=== PATIENT | male | born 1955 | race Caucasian/White ===

== ENCOUNTER 2019-09-21 16:10 | Emergency (ER) | payer OTHER, SELFPAY ==
--- NOTE | ~2019-09-21 | US_ITS ---
EXAMINATION:US venous doppler LE RT INDICATION:Right leg pain and swelling TECHNIQUE: Multiple grayscale, color flow and Doppler images of the right lower extremity deep venous systems were obtained and reviewed. COMPARISON:No prior studies for comparison. FINDINGS: The common femoral, superficial femoral and popliteal veins demonstrate normal respiratory variation, augmentation and compressibility. Color flow is also seen within the posterior tibial, pe roneal, greater saphenous and profunda veins. Subcutaneous edema is noted in the area of swelling. IMPRESSION: 1: No lower extremity deep venous thrombosis. Reviewed, dictated and finalized at location A. TING DEMONSTRATOR
--- NOTE | ~2019-09-21 | XR_ITS ---
XR ankle RT min 3V 09/21/2019 17:31 Indication: History of gout. Redness and swelling of the ankle. Procedure: 4 views right ankle Comparison: No prior studies for comparison. Findings: No fracture, subluxation or dislocation. Ankle mortise intact. There is mild lateral soft t issue swelling. No erosive changes. There are small calcaneal enthesophytes. Impression: 1: No significant bone or joint abnormality. Reviewed, dictated and finalized at location A. [employer] Impression: 1: No significant bone or joint abnormality.
[2019-09-21 16:15] VITALS: BP 162/105; PULSE 78; RESP 20; TEMP 36.7; O2SAT 98
[2019-09-21 17:32] LABS: Basophils Percent Auto 0.2 % (0.2-1.2); Eosinophils Absolute Auto 0.1 K/mm3 (0-0.3); Eosinophils Percent Auto 1.4 % (0-4.4); Hematocrit 47.5 % (42.0-52.0); Immature Granulocyte Absolute 0.02 K/mm3 (0.00-0.031); Immature Granulocyte Percent A 0.2 % (0-0.5); Lymphocytes Absolute Auto 2.09 K/mm3 (0.9-3.2); Lymphocytes Percent Auto 22.1 % (18.3-44.2); Mean Corpuscular HGB Conc 33.7 g/dl (32-36); Mean Corpuscular Hemoglobin 31.1 pg (26-34); Mean Corpuscular Volume 92.4 fl (80-100); Mean Platelet Volume 10.1 fl (7.4-10.4); Monocytes Absolute Auto 0.8 K/mm3 (0.1-0.6); Monocytes Percent Auto 8.8 % (2.6-8.5); Neutrophils Absolute Auto 6.4 K/mm3 (1.3-6.7); Neutrophils Percent Auto 67.3 % (45.5-73.1); Platelet Count Result 231 k/mm3 (150-375); Red Blood Count 5.14 M/mm3 (4.6-6.20); White Blood Count 9.4 K/mm3 (4.5-10.0)
--- NOTE | 2019-09-21 17:39 | ED.GENADULT ---
HPI - General Adult General Chief complaint: Unspecified <ISIDRO Rico Last Filed: 09/21/19 18:34> Stated complaint: POSS DVT <ISIDRO Rico Last Filed: 09/21/19 18:34> Time Seen by Provider: 09/21/19 16:59 <ISIDRO Rico Last Filed: 09/21/19 18:34> Source: patient <ISIDRO Rico Last Filed: 09/21/19 18:34> Mode of arrival: ambulatory <ISIDRO Rico Last Filed: 09/21/19 18:34> Limitations: no limitations <ISIDRO Rico Last Filed: 09/21/19 18:34> History of Present Illness HPI narrative: Patient is a 64-year-old male who presents to emergency department for evaluation of right ankle pain and swelling for the last couple of days denies injury trauma or similar occurrence patient notes moderate aching pain that radiates up the leg was referred over by his urologist today for consideration of ultrasound for rule out DVT patient denies fever chills weakness chest pain shortness of breath dizziness or lightheadedness has not taken anything for his symptoms and presents in no distress <ISIDRO Rico Last Filed: 09/21/19 18:34> Related Data Home medications: Home Medications Medication Instructions Recorded Confirmed cholecalciferol (vitamin D3) 50 2,000 unit PO DAILY 07/07/19 07/07/19 mcg (2,000 unit) tablet losartan 50 mg tablet 50 mg PO DAILY 07/07/19 07/07/19 omega-3 fatty acids 1,000 mg 1,000 mg PO DAILY 07/07/19 07/07/19 capsule tramadol 50 mg tablet 50 mg PO Q12H PRN tablet 07/07/19 07/07/19 <ISIDRO Rico Last Filed: 09/21/19 18:34> Allergies/adverse reactions: Allergies Allergy/AdvReac Type Severity Reaction Status Date / Time No Known Allergies Allergy Verified 09/21/19 16:13 <ISIDRO Rico Last Filed: 09/21/19 18:34> Review of Systems Review of Systems: All systems reviewed & are unremarkable except as noted in HPI and below <Mohamud Littlejohn PA-C - Last Filed: 09/21/19 18:34> [facility] Past Medical History Medical History: Medical History Erectile dysfunction Erythrocytosis Hyperlipidemia Hypertension 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 Rising PSA level <Mohamud Littlejohn PA-C - Last Filed: 09/21/19 18:34> Family History Family History: Family History (Updated 07/07/19 @ 15:29 by Nichole Crum, [facility]) Father Acute myocardial infarction, Onset Age: 67 Mother Hypothyroidism Sibling Brain tumor Hypothyroidism <Mohamud Littlejohn PA-C - Last Filed: 09/21/19 18:34> Social History Social History: Social History Smoking status: Former smoker Smoking end date: 08/05/94 Alcohol intake: current Substance use: never Gender identity (if verbalized by the patient): Male <Mohamud Littlejohn PA-C - Last Filed: 09/21/19 18:34> Exam Narrative: Exam Narrative: GENERAL: Well-appearing, well-nourished, and in no acute distress. HEAD: Normocephalic, atraumatic. EYES: PERRLA and EOMI. ENT: Nares clear, no rhinorrhea or epistaxis. Mucous membranes moist. Oropharynx without tonsillar hypertrophy exudate or other lesions. CHEST: Clear to auscultation. No respiratory distress. No wheezes rales or rhonchi HEART: Regular rate and rhythm. No murmur heard. Normal peripheral pulses. EXTREMITIES: Patient with swelling and tenderness of the right ankle joint no erythema tenderness to palpation to even light touch SKIN: Warm, dry, no rash. NEURO: No focal deficits. Alert and oriented x3. Neurovascularly intact. Capillary refill less than 2 seconds PSYCH: Normal mood and affect. <Mohamud Littlejohn PA-C - Last Filed: 09/21/19 18:34> Course Vital Signs Vital signs: Vital Signs Temperature 98.1 F 09/21/19 16:15 Pulse Rate 78 09/21/19 16:15 Respiratory Rate 20 09/21/19 16:15 Blood
[2019-09-21] MEDS: KETOROLAC 30 MG/ML VIAL (*BKC) IV PUSH (17:56)
[2019-09-21 18:05] LABS: Erythrocyte Sedimentation Rate 7 mm/hr (0-20)
[2019-09-21 18:21] LABS: Blood Urea Nitrogen 21 mg/dL (9-20); Calcium 9.1 mg/dL (8.4-10.2); Carbon Dioxide 26 mmol/L (22-30); Chloride 104 mmol/L (98-107); Estimated CRCL calculation 79 ml/min; Estimated Glomerular Filt Rate > 60; Glucose 96 mg/dL (75-110); Potassium 3.9 mmol/L (3.4-5.0); Sodium 141 mmol/L (137-145)
[2019-09-21] MEDS: COLCHICINE 0.6 MG TABLET 1.2 MG PO (18:36)
[2019-09-21 20:24] LABS: CRP 1.8 mg/dL (<1.0)
== END 2019-09-21 18:50 | disposition home or self-care (01) ==
PROVIDERS: Emergency Medicine Emergency Medical Services; Emergency Provider General Practice; PCP Internal Medicine
DX: M25.571 Pain in right ankle and joints of right foot (principal); E78.5 Hyperlipidemia, unspecified; I10 Essential (primary) hypertension; Z87.891 Personal history of nicotine dependence; N52.9 Male erectile dysfunction, unspecified
CPT/HCPCS: 36415; 73610; 80048; 84550; 85025; 85652; 86140; 93971; 96374; 99284; A9270; J1885

== ENCOUNTER 2020-02-29 07:56 | Outpatient (CLI) | payer OTHER, SELFPAY ==
--- NOTE | ~2020-02-29 | CT_ITS ---
EXAMINATION: CT abdomen pelvis w con INDICATION: Cysts of the kidneys TECHNIQUE: Computed tomographic images of the abdomen and pelvis were obtained after the administrati on of 100 cc of Omnipaque 350 intravenous contrast. The dose-length product (DLP) was 1117.27 mGy-cm. Automated exposure control and iterative reconstruction technique were employed. COMPARISON: Ultrasound, 08/19/2019 FINDINGS: Calcified pulmonary nodules are consistent with old granulomatous disease. The heart size i s normal. The liver, spleen, pancreas, gallbladder, and adrenal glands are normal. There are multiple cysts of both kidneys, some of which demonstrate thin internal septation. The largest on the left me asures 9.9 x 8.2 cm. The largest on the right measures 9.6 x 5.2 cm. Nearly all of the cysts are flui d attenuation. One in the left kidney lower pole measuring 3.8 x 3.3 cm is soft tissue attenuation. K idney dimensions are specifically requested. These maximum dimensions include the cysts. The right ki dney measures approximately 13.5 x 10.2 x 8.7 cm. The left kidney measures approximately 14.2 x 11.0 x 9.5 cm. No pathologically enlarged abdominal or pelvic lymph nodes are identified. There is no free intraperitoneal gas or evidence of bowel obstruction. The appendix is normal. There is severe lumbar spondylosis. There is a tiny fat-containing umbilical hernia. There is mild circumferential thickeni ng of the bladder wall. IMPRESSION: 1. Polycystic kidneys. One cystic lesion in the lower pole of the left kidney measures soft tissue at tenuation but likely represents a proteinaceous cyst based on its appearance on the comparison ultras ound. 2. Mild circumferential bladder wall thickening which could be due to incomplete distention, chronic outlet obstruction, or cystitis. Reviewed, dictated and finalized at location B. IMPRESSION: 1. Polycystic kidneys. One cystic lesion in the lower pole of the left kidney m easures soft tissue attenuation but likely represents a proteinaceous cyst base d on its appearance on the comparison ultrasound. 2. Mild circumferential bladder wall thickening which could be due to incomplet e distention, chronic outlet obstruction, or cystitis.
[2020-02-29 08:23] LABS: Estimated Glomerular Filt Rate 51
== END 2020-02-29 07:57 | disposition home or self-care (01) ==
PROVIDERS: PCP Internal Medicine; Visit Provider Internal Medicine Nephrology
DX: N28.1 Cyst of kidney, acquired (principal)
CPT/HCPCS: 36415; 74177; Q9967

== ENCOUNTER 2020-11-18 09:49 | Inpatient (IN) | payer OTHER, MEDICARE, SELFPAY ==
[2020-11-18] VITALS (25 sets, daily range): BP systolic 105–131; BP diastolic 71–89; PULSE 84–117; RESP 16–32; TEMP 36.1–37.6; O2SAT 91–99; BMI 30.4
--- NOTE | ~2020-11-18 | XR_ITS ---
EXAMINATION: XR chest 1V portable INDICATION: Shortness of breath, COVID 19 positive TECHNIQUE: Portable AP chest at 1051 hours COMPARISON: 04/15/2011 FINDINGS: There are patchy opacities throughout the right lung and in the left mid and lower lung zon es. There is no pleural effusion or pneumothorax. The cardiomediastinal silhouette is normal. The vis ualized osseous structures are unremarkable. IMPRESSION: 1. Patchy bilateral opacities as described above, likely COVID 19 pneumonia with the given clinical h istory. Reviewed, dictated and finalized at location B. IMPRESSION: 1. Patchy bilateral opacities as described above, likely COVID 19 pneumonia wit h the given clinical history.
--- NOTE | ~2020-11-18 | CT_ITS ---
EXAMINATION: CT abdomen pelvis wo/w con DATE: 11/20/2020 12:32 INDICATION: Kidney mass lesion TECHNIQUE: Computed tomography (CT) of the abdomen and pelvis was performed with 100 cc Omnipaque 350 intravenous contrast. Automated exposure control and iterative reconstruction technique were employe d. Exam dose: 1834.76 mGy-cm total exam DLP. COMPARISON: 11/20/2020 CT abdomen pelvis FINDINGS: There is an enhancing approximately 3.15 x 3.75 cm lateral lower pole left renal mass which shows evidence of enhancement, measuring 36 Hounsfield units on the precontrast examination and 63 H ounsfield units on the postcontrast examination. The lesion has decreased minimally in size from appr oximately 3.45 x 3.8 cm dimension on 11/20/2020. Hypernephroma is not excluded considering the finding of post 7 contrast enhancement.. Numerous bilateral renal cysts are noted, measuring up to 10 cm maximal dimension. Normal heart size. Trace pericardial fluid. No pleural effusion. There are extensive bilateral patchy groundglass infiltrates involving the included middle, lingula, bilateral lower lobes. The gallbladder is unremarkable. No bile duct or pancreatic duct dilatation. No hepatic, pancreatic, splenic or adrenal space-occupying mass lesion. Normal caliber of the abdominal aorta. Normal appendix. Diverticulosis of the sigmoid and descending colon; no CT evidence of diverticulitis . No bowel obstruction or intraperitoneal free air. Prostate enlargement and mild calcification. There is moderate thickening of the urinary bladder wall likely due to bladder outlet obstruction due to prostatomegaly. Prominent degenerative disease at L3-4, L4-5 and L5-S1. Diffuse idiopathic skeletal hyperostosis of the lower thoracic spine. Bilateral severe hip joint osteoarthritis with prominent bilateral cystic changes of the acetabulum a nd femoral head. IMPRESSION: Enhancing 3.15 x 3.75 cm lateral lower pole left renal mass lesion, of concern for possi ble hypernephroma, despite slight decrease in size since 02/29/2020. Reviewed, dictated and finalized at [facility]. Reviewed, dictated and finalized at [facility]. IMPRESSION: Enhancing 3.15 x 3.75 cm lateral lower pole left renal mass lesion , of concern for possible hypernephroma, despite slight decrease in size since 02/29/2020.
--- NOTE | ~2020-11-18 | US_ITS ---
US renal BI DATE: 11/19/2020 13:50 INDICATION: Increasing serum creatinine level TECHNIQUE: Real-time imaging of kidneys and urinary bladder COMPARISON: 02/29/2020 CT abdomen pelvis FINDINGS: The right kidney measures approximately 14.7 cm length, left kidney 15.2 cm. There are mult iple bilateral renal cysts, measuring up to 10.1 cm on the right and 10.4 cm on the left left. There is an exophytic approximately 4 x 1.7 x 3.9 cm mass of the left kidney with some internal vascu larity, suspicious for hypernephroma. The urinary bladder is unremarkable except for diffuse bladder wall thickening., Likely due to prosta te enlargement and bladder outlet obstruction. IMPRESSION: 4 cm solid echogenic mass lower pole of left kidney, suspicious for hypernephroma Multiple bilateral renal cysts Prostate enlargement and associated bladder wall thickening likely due to bladder outlet obstruction Reviewed, dictated and finalized at [facility] Reviewed, dictated and finalized at [facility]. IMPRESSION: 4 cm solid echogenic mass lower pole of left kidney, suspicious for hypernephroma Multiple bilateral renal cysts Prostate enlargement and associated bladder wall thickening likely due to bladd er outlet obstruction
--- NOTE | ~2020-11-18 | CT_ITS ---
EXAMINATION: CTA chest PE protocol EXAM DATE: 11/18/2020 11:32 INDICATION: Cough, weakness. Unable to sleep. TECHNIQUE: Spiral CTA of the chest (pulmonary arteries) was performed with 100 cc Omnipaque 350 intr avenous contrast injection. Images were acquired during the pulmonary arterial phase. Coronal maxi mum intensity projection 3D-reconstructions were created by the technologist on dedicated workstation . Axial, coronal and sagittal reformatted images were reviewed. The dose-length product (DLP) for t his examination was 690.21 mGy-cm. The exposure was tailored according to patient size (auto mA exp osure control), and iterative reconstruction (ASIR) was used as additional dose reduction technique. There is no prior study for comparison. FINDINGS: Pulmonary arteries are well opacified and without intraluminal filling defects. No thora cic aortic dissection. Bilateral moderate amount of patchy peripheral predominant groundglass opaciti es. Appearance is typical of early stage COVID 19 pneumonia. Less likely acute possibilities includ e influenza, pulmonary edema or hemorrhage. Some chronic processes that can have this appearance incl ude cryptogenic organizing pneumonia, desquamative interstitial pneumonia, nonspecific interstitial p neumonia, drug toxicity, connective tissue disease. Please clinically correlate and test as appropria te. There are no pleural or pericardial effusions. Tracheobronchial tree is patent. There is no media stinal, hilar or axillary lymphadenopathy. There is no pneumothorax. Heart normal in size. Ther e is minimal coronary arterial calcification, arterial sclerosis. Incompletely imaged renal lesions, imaged portions consistent with cysts. Moderate size thoracic endplate osteophytes. IMPRESSION: 1. Moderate patchy bilateral ground glass opacities, probably COVID 19 given community prevalence. L ess likely possibilities above. 2. No pulmonary emboli. Reviewed, dictated and finalized at [facility]. IMPRESSION: 1. Moderate patchy bilateral ground glass opacities, probably COVID 19 given c ommunity prevalence. Less likely possibilities above. 2. No pulmonary emboli.
--- NOTE | ~2020-11-18 | XR_ITS ---
XR chest 1V portable DATE: 11/21/2020 05:33 INDICATION: Covid pneumonia TECHNIQUE: Portable AP views on 11/21/2020 at 1733 and 1734 hours COMPARISON: 11/18/2020 portable AP chest / CT pulmonary scan FINDINGS: There are prominent patchy infiltrates and consolidation scattered in both lung patricio, par ticularly the mid and lower lung zones, right greater than left, consistent with considerable worseni ng of bilateral pneumonia. Heart size is likely within normal range. Mild aortic unfolding. No pleural effusion or pneumothorax. IMPRESSION: Probably increased bilateral pulmonary infiltrates, right greater than left, most consist ent with bilateral pneumonia Reviewed, dictated and finalized at [facility]. IMPRESSION: Probably increased bilateral pulmonary infiltrates, right greater t kelsey left, most consistent with bilateral pneumonia
--- NOTE | 2020-11-18 09:58 | ECG_ITS ---
Measurements Intervals [place] Rate: 100 P: MN: 0 QRS: 48 QRSD: 151 T: 30 QT: 328 QTc: 424 Interpretive Statements ATRIAL FIBRILLATION WITH RAPID VENTRICULAR RESPONSE RIGHT BUNDLE BRANCH BLOCK BASELINE ARTIFACT- II, III, AVR, AVF, V2-V6 ABNORMAL ECG Electronically Signed On 11-18-2020 11:54:01 CDT by Alejandro Rick D.O.
[2020-11-18] MEDS: SODIUM CHLORIDE 0.9% IV 1,000 ML 999 ML IV CONT (10:37)
[2020-11-18 10:51] LABS: Hematocrit 49.8 % (42.0-52.0); Hemoglobin 16.3 g/dL (14.0-18.0); Immature Granulocyte Absolute 0.02 K/mm3 (0.00-0.031); Immature Granulocyte Percent A 0.4 % (0-0.5); Immature Platelet Fraction Pct 8.1 % (0.9-11.2); Lymphocytes Absolute Auto 0.64 K/mm3 (0.9-3.2); Lymphocytes Percent Auto 14.2 % (18.3-44.2); Mean Corpuscular HGB Conc 32.7 g/dl (32-36); Mean Corpuscular Hemoglobin 28.3 pg (26-34); Mean Corpuscular Volume 86.5 fl (80-100); Mean Platelet Volume 10.8 fl (7.4-10.4); Monocytes Absolute Auto 0.3 K/mm3 (0.1-0.6); Monocytes Percent Auto 6.7 % (2.6-8.5); Neutrophils Absolute Auto 3.6 K/mm3 (1.3-6.7); Neutrophils Percent Auto 78.7 % (45.5-73.1); Platelet Count Result 136 k/mm3 (150-375); Red Blood Count 5.76 M/mm3 (4.6-6.20); Red Cell Distribution Width 15.1 % (11.5-14.5); White Blood Count 4.5 K/mm3 (4.5-10.0)
--- NOTE | 2020-11-18 10:55 | ED.GENADULT ---
HPI - General Adult General Chief complaint: Weakness <ISIDRO Rico Last Filed: 11/18/20 13:03> Stated complaint: COVID +, dizzy <ISIDRO Rico Last Filed: 11/18/20 13:03> Time Seen by Provider: 11/18/20 10:08 <ISIDRO Rico Last Filed: 11/18/20 13:03> Source: patient <ISIDRO Rico Last Filed: 11/18/20 13:03> Mode of arrival: ambulatory <ISIDRO Rico Last Filed: 11/18/20 13:03> Limitations: no limitations <ISIDRO Rico Last Filed: 11/18/20 13:03> History of Present Illness HPI narrative: Patient is a 65-year-old male who presents with 10 days duration of fatigue that is generalized patient was positive for Covid on Saturday patient's also positive. Patient notes he has been taking ibuprofen for fever which has been effective but he continues to feel fatigued. Patient was referred to emergency department for further evaluation per recommendation of his primary care. Patient denies chest pain dyspnea vomiting diarrhea <ISIDRO Rico Last Filed: 11/18/20 13:03> Related Data Home medications: Home Medications Medication Instructions Recorded Confirmed cholecalciferol (vitamin D3) 50 2,000 unit PO DAILY 07/07/19 11/18/20 mcg (2,000 unit) tablet omega-3 fatty acids 1,000 mg 2,400 mg PO DAILY cap 12/07/19 11/18/20 capsule irbesartan 150 mg tablet 150 mg PO HS 10/25/20 11/18/20 pravastatin 20 mg PO HS 11/18/20 11/18/20 <ISIDRO Rico Last Filed: 11/18/20 13:03> Allergies/adverse reactions: Allergies Allergy/AdvReac Type Severity Reaction Status Date / Time No Known Allergies Allergy Verified 11/18/20 10:03 <ISIDRO Rico Last Filed: 11/18/20 13:03> Review of Systems Review of Systems: All systems reviewed & are unremarkable except as noted in HPI and below <ISIDRO Rico Last Filed: 11/18/20 13:03> PMFSH Past Medical History Medical History: Medical History BPH (benign prostatic hyperplasia) Erectile dysfunction Erythrocytosis Hyperlipidemia Hypertension Long-term current use of testosterone replacement therapy 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 Renal cyst Rising PSA level <Mohamud Littlejohn PA-C - Last Filed: 11/18/20 13:03> Family History Family History: Family History Father Acute myocardial infarction, Onset Age: 67 Mother Hypothyroidism Sibling Brain tumor Hypothyroidism <Mohamud Littlejohn PA-C - Last Filed: 11/18/20 13:03> Social History Social History: Social History Smoking packs per day: 2 Smoking cigarettes per day: 40.0 Years smoked: 15 Smoking pack-years: 30.00 Smoking status: Former smoker Tobacco type: cigarettes Smoking end date: 08/05/94 Alcohol intake: current Substance use: never Gender identity (if verbalized by the patient): Male Spiritual care concerns: No <Mohamud Littlejohn PA-C - Last Filed: 11/18/20 13:03> Exam Narrative: Exam Narrative: GENERAL: Ill-appearing, well-nourished, and in no acute distress. HEAD: Normocephalic, atraumatic. EYES: PERRLA and EOMI. ENT: Nares clear, no rhinorrhea or epistaxis. Mucous membranes moist. Oropharynx without tonsillar hypertrophy exudate or other lesions. NECK: Supple. No adenopathy or masses. CHEST: Clear to auscultation. No respiratory distress. No wheezes rales or rhonchi HEART: Irregularly irregular rate and rhythm. No murmur heard. Normal peripheral pulses. EXTREMITIES: Normal range of motion. No edema. SKIN: Warm, dry, no rash. NEURO: No focal deficits. Alert and oriented x3. Cranial nerves II through XII grossly intact PSYCH: Normal mood and affect. <Mohamud Littlejohn PA-C - Last Filed: 11/18/20 13:03> Course
[2020-11-18 11:01] LABS: Alanine Aminotransferase 40 U/L (4-50); Alkaline Phosphatase 57 U/L (38-126); Anion Gap 7 mmol/L (8-16); Aspartate Amino Transferase 51 U/L (17-59); Bilirubin,Total 0.7 mg/dL (0.2-1.3); Blood Urea Nitrogen 21 mg/dL (9-20); CRP 7.7 mg/dL (<1.0); Calcium 8.2 mg/dL (8.4-10.2); Carbon Dioxide 27 mmol/L (22-30); Chloride 100 mmol/L (98-107); Estimated Glomerular Filt Rate 36; Glucose 92 mg/dL (75-110); Potassium 4.3 mmol/L (3.4-5.0); Sodium 134 mmol/L (137-145)
[2020-11-18 11:06] LABS: Prothrombin Time 13.6 Seconds (11.1-14.7)
[2020-11-18 11:07] LABS: Partial Thromboplastin Time 33.1 SECONDS (22.3-36.8)
[2020-11-18 11:09] LABS: D Dimer 1.45 ug/mL (<0.48)
[2020-11-18 11:14] LABS: Troponin I 0.016 ng/mL (0.000-0.034)
[2020-11-18] MEDS: DEXAMETHASONE SOD PHOS INJ 4 MG/ML VIAL 10 MG IV PUSH (12:49)
[2020-11-18] MEDS: LACTATED RINGERS 1,000 ML 125 ML IV CONT ×2 (15:09→22:53)
[2020-11-18] MEDS: BENZONATATE 100 MG CAPSULE 200 MG PO ×2 (15:10→17:32)
--- NOTE | 2020-11-18 15:49 | ADMGEN ---
This patient, David Elias, was admitted to IMU Room 211-01 at 1400. Patient/family oriented to hospital policies and general routines including ID bracelet, bed and alarms, visiting hours, pain management, procedures, bathroom and other care routines, personal items, smoking policy, room service/diet, and visiting hours. Information on how to activate the Rapid Response Team has been discussed. Patient/Family are encouraged to report perceived risks to care and to ask questions if they do not understand what they are told or what they should do.
[2020-11-18] MEDS: FAMOTIDINE 20 MG/2 ML VIAL IV PUSH (19:45)
--- NOTE | 2020-11-18 20:00 | PM.IMHP ---
H&P: HPI History of Present Illness Date/Time: 11/18/20 20:00 Chief Complaint: Generalized weakness. Narrative: This is a 65-year-old male with hypertension and hyperlipidemia who presented to the emergency department earlier today via private vehicle from home for evaluation of generalized weakness. His was diagnosed with COVID about a week and half ago and last Saturday he began showing symptoms of the same with generalized weakness, profound fatigue, and low-grade fever for which he has been taking ibuprofen. Two days ago he was actually feeling a bit better and started back on his exercise routine however he felt worse again last evening and did not sleep well as he developed a cough, which is a new symptom. The cough is not productive but it is quite nagging. When he awoke this morning he was feeling a lot worse and was very weak thus he came in for evaluation. Imaging showed bilateral pneumonia which is likely secondary to COVID-19 (the patient tested positive for such 4 days ago on Saturday). He was also found to be in atrial fibrillation which is a new diagnosis for him. He has absolutely no symptoms of such and specifically denies palpitations and feeling of irregular heartbeat. He denies significant caffeine alcohol use. No known history of sleep apnea however he was referred for sleep study several weeks ago due to fatigue and snoring. At the time my evaluation he feels better and has no specific complaints. Review of Systems Review of Systems: Narrative: Twelve systems were reviewed. He has been running a low-grade fever for which he has taken ibuprofen. Mild headache. No significant sinus congestion, rhinorrhea, otalgia, or odynophagia. He denies chest pain pleuritic pain. No orthopnea, PND, or lower extremity edema. His appetite has been good and he has been pushing the fluids to stay well hydrated. No anosmia or dysgeusia. He denies nausea and vomiting. He had a couple loose stools earlier today. No dysuria. Except as documented, all other systems were reviewed and are negative. 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 Monroy. Surgical History Surgical History (Updated 11/18/20 @ 20:46 by Dhara Cavanaugh PA-C) No history of previous surgery Family History Family History Father Acute myocardial infarction, Onset Age: 67 Mother Hypothyroidism Sibling Brain tumor Hypothyroidism Social History Social History (Updated 11/18/20 @ 20:47 by Dhara Cavanaugh PA-C) Social History: Surrogate decision maker: Mamta Elias, . Code status: Full code. Smoking packs per day: 2 Smoking cigarettes per day: 40.0 Years smoked: 15 Smoking pack-years: 30.00 Smoking status: Former smoker Tobacco type: cigarettes Smoking end date: 08/05/94 Alcohol intake: current Substance use: never Additional living arrangements comments: The patient lives in [place] with his . Additional occupation/education comments: Works for [employer]. Gender identity (if verbalized by the patient): Male Spiritual care concerns: No Meds Home Medications and Allergies Home Medications Medication Instructions Recorded Confirmed Type cholecalciferol (vitamin D3) 50 2,000 unit PO DAILY 07/07/19 11/18/20 History mcg (2,000 unit) tablet omega-3 fatty acids 1,000 mg 2,400 mg PO DAILY cap 12/07/19 11/18/20 History capsule syringe (disposable) 1 mL #20 each 01/20/20 11/15/20 Rx testosterone cypionate 200 mg/mL 150 mg IM WEEKLY #10 ml 06/16/20 11/18/20 Rx intramuscular oil amlodipine 5 mg tablet 5 mg PO DAILY #90 tablet 09/28/20 11/18/20 Rx irbesartan 150 mg tablet 150 mg PO HS 10/25/20 11/18/20 History pravastatin 20 mg PO
[2020-11-18] MEDS: ENOXAPARIN 120 MG/0.8 ML SYRINGE 115 MG SUB-Q (22:53)
[2020-11-19] VITALS (15 sets, daily range): BP systolic 101–152; BP diastolic 50–80; PULSE 65–121; RESP 14–20; TEMP 36.2–38.1; O2SAT 94–97
[2020-11-19] MEDS: LACTATED RINGERS 1,000 ML 125 ML IV CONT (05:38)
[2020-11-19] MEDS: BENZONATATE 100 MG CAPSULE 200 MG PO ×3 (05:39→17:11)
[2020-11-19] MEDS: dilTIAZem HCl INJ 25 MG/5 ML VIAL 10 MG IV PUSH ×2 (06:31→10:40)
[2020-11-19 06:37] LABS: Basophils Percent Auto 0.2 % (0.2-1.2); Hematocrit 45.9 % (42.0-52.0); Hemoglobin 15.1 g/dL (14.0-18.0); Immature Granulocyte Absolute 0.02 K/mm3 (0.00-0.031); Immature Granulocyte Percent A 0.4 % (0-0.5); Immature Platelet Fraction Pct 7.2 % (0.9-11.2); Lymphocytes Absolute Auto 0.76 K/mm3 (0.9-3.2); Lymphocytes Percent Auto 13.8 % (18.3-44.2); Mean Corpuscular HGB Conc 32.9 g/dl (32-36); Mean Corpuscular Hemoglobin 28.2 pg (26-34); Mean Corpuscular Volume 85.8 fl (80-100); Monocytes Absolute Auto 0.2 K/mm3 (0.1-0.6); Monocytes Percent Auto 4.2 % (2.6-8.5); Neutrophils Absolute Auto 4.5 K/mm3 (1.3-6.7); Neutrophils Percent Auto 81.4 % (45.5-73.1); Platelet Count Result 137 k/mm3 (150-375); Red Blood Count 5.35 M/mm3 (4.6-6.20); Red Cell Distribution Width 15.2 % (11.5-14.5); White Blood Count 5.5 K/mm3 (4.5-10.0)
[2020-11-19 06:56] LABS: Alanine Aminotransferase 32 U/L (4-50); Albumin Level 3.4 g/dL (3.5-5.1); Alkaline Phosphatase 49 U/L (38-126); Anion Gap 6 mmol/L (8-16); Aspartate Amino Transferase 39 U/L (17-59); Bilirubin,Total 0.6 mg/dL (0.2-1.3); Blood Urea Nitrogen 18 mg/dL (9-20); CRP 7.9 mg/dL (<1.0); Calcium 7.9 mg/dL (8.4-10.2); Carbon Dioxide 26 mmol/L (22-30); Chloride 104 mmol/L (98-107); Estimated CRCL calculation 57 ml/min; Estimated Glomerular Filt Rate 44; Glucose 98 mg/dL (75-110); Lactate Dehydrogenase 604 U/L (313-618); Magnesium 1.8 mg/dL (1.6-2.3); Potassium 4.2 mmol/L (3.4-5.0); Sodium 136 mmol/L (137-145)
[2020-11-19] MEDS: CHOLECALCIFEROL 1,000 UNITS TABLET 2000 UNITS PO (09:05)
[2020-11-19] MEDS: ENOXAPARIN 120 MG/0.8 ML SYRINGE 115 MG SUB-Q (09:06)
[2020-11-19] MEDS: amLODIPine BESYLATE 5 MG TABLET PO (09:06)
[2020-11-19] MEDS: DEXAMETHASONE 2 MG TABLET 6 MG PO (09:06)
[2020-11-19] MEDS: PRAVASTATIN SODIUM 20 MG TABLET PO (09:07)
[2020-11-19] MEDS: OMEGA 3 POLYUNSAT FATTY ACIDS 1 GM CAP 2 GM PO (09:07)
--- NOTE | 2020-11-19 10:29 | PM.CNCAR ---
Assessment and Plan Assessment and plan (1) Atrial fibrillation, new onset: Code(s): I48.91 - Unspecified atrial fibrillation Status: Acute Assessment and Plan: New onset atrial fibrillation, probably a complication of COVID-19 pneumonia, with rapid ventricular response. Improving with IV Cardizem. Does not appear to be any congestive heart failure, no ischemic changes on EKG. TSH was normal. Echo is pending but I do not hear any murmurs. Counseled patient extensively about atrial fibrillation, risk of cardioembolic events, rate control, anticoagulation cetera. For now will continue Cardizem IV; probably switch to p.o. when heart rate is better. Add an anticoagulant such as Eliquis 5 mg b.i.d.. If the patient is adequately rate controlled can discharge in the next couple of days and consider outpatient electrical cardioversion if he does not convert spontaneously after recovery. (2) Pneumonia due to 2019 novel coronavirus: Code(s): U07.1 - COVID-19; J12.82 - Pneumonia due to coronavirus disease 2019 Status: Acute Assessment and Plan: Has pneumonia secondary to COVID-19; oxygenating fairly well. (3) CKD (chronic kidney disease), stage III: Code(s): N18.30 - Chronic kidney disease, stage 3 unspecified Status: Acute Assessment and Plan: Chronic kidney disease with acute kidney injury, received IV fluids. BMP tomorrow. (4) Hypertension: Code(s): I10 - Essential (primary) hypertension Status: Acute Assessment and Plan: Reasonably controlled. History of Present Illness History of Present Illness Consult date/time: 11/19/20 10:29 Requesting physician: Dhara Cavanaugh PA-C Consult reason: atrial fibrillation Reason For Visit: covid,acute kidney injury,dehydration,new onset a- Narrative: Date of service 11/19/2020 Mr. David Elias is a 65-year-old male who was admitted with COVID pneumonia. We were asked to see him at the request of the hospitalists for our advice and opinion regarding his new onset of atrial fibrillation RVR, in consultation. The patient was diagnosed with COVID-19 4 days ago; he had been feeling poorly for about a week and half with weakness, fatigue, fever and cough. His was diagnosed with COVID recently as well. Yesterday he felt extremely fatigued and apparently looked bad, and noted his heart rate was unusually high around 107. He called Dr. Esquivel and was told to go to the emergency room. There he was found to have pneumonia, and acute Kidney injury and was given IV fluids, and also also found to be in AFib RVR. O2 sat was in the upper 90s on arrival. He was given Lovenox, and dexamethasone. I ordered 1 dose of Cardizem 10 mg IV push for heart rates in the 130s. On telemetry his heart rate was still high at times so he was given another dose of 10 mg and started on a 10 milligram/hour drip. Currently he is feeling better with a heart rate of about 100-110 beats per minute. He also has a history of hypertension, hyperlipidemia, and is being evaluated for sleep apnea by Dr. Masterson. He has polycystic kidney disease followed by Dr. Monroy. Overall he is quite healthy, able to walk 3.5 miles daily with no shortness of breath or chest discomfort. No history of thyroid disease or bleeding. No prior history of heart disease or palpitations. Review of Systems Constitutional: Constitutional: Reports fatigue, Reports lethargy, Reports night sweats and Reports weakness Eyes: Eyes: Reports no additional eye complaints ENT: Denies epistaxis Cardiovascular: Cardi
--- NOTE | 2020-11-19 14:40 | PM.IMPN ---
Progress Note: A&P Assessment and Plan (1) Pneumonia due to 2019 novel coronavirus: Code(s): U07.1 - COVID-19; J12.82 - Pneumonia due to coronavirus disease 2019 Status: Acute Assessment and Plan: -Patient tested positive 5 days ago and started having symptoms 8 days ago -he is on 2 L of oxygen right now although there is no hypoxia documented. I have asked the nurse to wean off the oxygen -continue Decadron and Eliquis -No indication for remdesivir due to kidney dysfunction and pt is likely going to be off o2 today. Will start if pt declines (2) Atrial fibrillation, new onset: Code(s): I48.91 - Unspecified atrial fibrillation Status: Acute Assessment and Plan: New onset -Pt is doing well on the Cardizem drip and HR is 75 -Eliquis will be started tonight -Cardiology consulted, plan for outpt cardioversion if he doesn't spontaneously resolve -TSH normal (3) Elevated serum creatinine: Code(s): R79.89 - Other specified abnormal findings of blood chemistry Status: Acute Assessment and Plan: Cr better today 1.6, down from 1.9 -likely has baseline dysfunction since in october it was slightly elevated -fluids given overnight, will stop them and observe since pt has covid -await renal u/s -He will need to follow-up with Dr. Monroy if it doesn't improve. (4) Hypertension: Code(s): I10 - Essential (primary) hypertension Status: Acute Assessment and Plan: Last bp 111/66 - Continue amlodipine -Irbesartan currently on hold due to worsening creatinine. (5) Hyperlipidemia: Qualifiers: Hyperlipidemia type: other hyperlipidemia Qualified Code(s): E78.49 - Other hyperlipidemia Code(s): E78.5 - Hyperlipidemia, unspecified Status: Acute Assessment and Plan: Continue statin, LFTs within normal limits. Time Spent With Patient Time with patient: 25 - 35 minutes Subjective Date/time seen: 11/19/20 14:40 Interval history: Pt is a 65-year-old male here for AFib/COVID-19. Patient was seen today and states he is doing well. He has no shortness of breath, chest pain, fevers, chills, nausea, vomiting, abdominal pain or leg swelling. He had 1 episode of diarrhea yesterday but that has resolved. He is able to walk around the room and does not feel weak. He can taste and smell and has a good appetite. Review of Systems Review of Systems: All systems reviewed & are unremarkable except as noted in HPI and below Exam Narrative: Exam Narrative: General: Well developed well nourished patient in NAD HEENT: normocephalic Neck: supple Neuro: Alert and oriented x4 CV: Irregularly irregular rate of 75 on exam. Telemetry shows occasional PVCs and tachycardia up to 150 consistent with AFib RVR Resp: Decreased breath sounds but overall clear, no wheezing or rhonchi. Abd: Soft, non distended. No pain to palpation. Positive bowel sounds Extremities: No swelling, erythema, or pain to palpation. Objective Data Vital Signs Vital Signs: Vital Signs - 24 hr 11/18/20 14:42 11/18/20 15:51 11/18/20 16:00 Temperature 97.3 F L 98 F Pulse Rate 86 84 Respiratory Rate 18 16 Blood Pressure 105/76 131/89 Pulse Oximetry 96 95 97 11/18/20 18:00 11/18/20 19:52 11/18/20 20:00 Temperature 98 F 96.9 F L Pulse Rate 95 88 85 Respiratory Rate 16 20 Blood Pressure 120/80 121/74 Pulse Oximetry 99 97 11/18/20 22:00 11/18/20 22:52 11/19/20 00:00 Temperature 97.2 F L Pulse Rate 96 97 103 H Respiratory Rate 20 Blood Pressure 116/71 Pulse Oximetry 96 96 11/19/20 02:00 11/19/20 03:47 11/19/20 04:00 Temperature 97.1 F L Pulse Rate 96 109 H 111 H Respiratory Rate 18 Blood Pressure 131/61 Pulse Oximetry 96 11/19/20 06:00 11/19/20 08:00 11/19/20 10:00 Temperature 100.5 F H Pulse Rate 121 H 117 H 107 H Respiratory Rate 14 Blood Pressure 152/80 H Pulse Oximetry 94 11/19/20 10:4
[2020-11-19] MEDS: APIXABAN 5 MG TABLET PO (19:39)
--- NOTE | 2020-11-19 20:34 | ECHO_ITS ---
Patient Info Name: David Elias Age: 65 years : 1955 Gender: Male Ht: 76 in Wt: 250 lbs BSA: 2.49 m2 HR: 112 bpm BP: 131 / 61 mmHg Heart Rhythm: Atrial Fibrillation Technical Quality: Fair Exam Date: 11/19/2020 9:13 AM Exam Location: [facility] Patient Status: Inpatient Admit Date: 11/18/2020 Staff Ordering Physician: Dhara Cavanaugh PA-C County Manager: Suma Dye RDCS Attending Provider: Radha Stout PA-C Referring Physician: Mao MCCURDY; Exam Type: CA echo dop color flow w con Study Info Complete two-dimensional, color flow and Doppler transthoracic echocardiogram is performed with contrast to opacify the left ventricle and to improve the deliniation of the left ventricle endocardial borders. Contrast/Agitated Saline Contrast/Ag. Saline: Definity Amount: 4.00 ml Summary 1. Normal left ventricular size and thickness with overall good contractility of all segments. Although the calculated ejection fraction is 44%, visually it appears to be in the 55-60% range. No focal wall motion abnormalities. Normal diastolic function. 2. Right ventricular chamber dimension is mildly enlarged with normal function. 3. Left atrial chamber dimension is moderately enlarged. 4. Right atrial chamber dimension is mildly enlarged. 5. Mild pulmonary hypertension, estimated pulmonary arterial systolic pressure is 37 mmHg. 6. No significant valve disease. 7. Atrial fibrillation. 8. Technically difficult study; definity echo contrast used to identify endocardial borders. Left Ventricle Left ventricular chamber dimension is normal. Left ventricular systolic function is normal, estimated at 55-60%. There is no increased left ventricular wall thickness. Left ventricular septal wall motion is normal. The left ventricular diastolic function is normal. Right Ventricle Right ventricular chamber dimension is mildly enlarged with normal function. Right ventricular systolic function is normal. Left Atria Left atrial chamber dimension is moderately enlarged. Right Atria Right atrial chamber dimension is mildly enlarged. Aortic Valve The aortic valve is trileaflet. There is no aortic valve sclerosis. There is no aortic valve stenosis. There is no aortic valve regurgitation. There is mild aortic valve calcification. Pulmonic Valve The pulmonic valve is normal. There is no pulmonic valve stenosis. There is no pulmonic regurgitation. Mitral Valve The mitral valve has normal leaflets. There is no mitral valve stenosis. There is trace mitral valve regurgitation. Tricuspid Valve The tricuspid valve leaflets are normal. There is no significant tricuspid valve stenosis. There is trace tricuspid valve regurgitation. Mild pulmonary hypertension, estimated pulmonary arterial systolic pressure is 37 mmHg. Pericardium/Pleural The pericardium appears normal. There is no pericardial effusion. Inferior Vena Cava Normal inferior vena cava with >50% collapse upon inspiration consistent with Empty right atrial pressure, 10 mmHg. Aorta The aortic root size at the sinus of Valsalva is normal. The prox ascending aorta size is normal. Left Ventricular Outflow Tract Name Value Normal LVOT 2D
[2020-11-19] MEDS: guaiFENesin/CODEINE (*CRX) 200/20 MG 10 ML SYRUP PO (23:53)
[2020-11-20] VITALS (21 sets, daily range): BP systolic 103–149; BP diastolic 63–95; PULSE 69–110; RESP 18–26; TEMP 36.1–38.9; O2SAT 85–96
[2020-11-20 04:27] LABS: Hematocrit 44.3 % (42.0-52.0); Hemoglobin 14.6 g/dL (14.0-18.0); Mean Corpuscular Hemoglobin 28.3 pg (26-34); Mean Platelet Volume 11.4 fl (7.4-10.4); Platelet Count Result 157 k/mm3 (150-375); Red Blood Count 5.15 M/mm3 (4.6-6.20); Red Cell Distribution Width 15.3 % (11.5-14.5); White Blood Count 8.2 K/mm3 (4.5-10.0)
[2020-11-20 04:50] LABS: Anion Gap 5 mmol/L (8-16); Blood Urea Nitrogen 24 mg/dL (9-20); Calcium 7.7 mg/dL (8.4-10.2); Carbon Dioxide 28 mmol/L (22-30); Chloride 101 mmol/L (98-107); Estimated CRCL calculation 54 ml/min; Estimated Glomerular Filt Rate 41; Glucose 105 mg/dL (75-110); Potassium 4.1 mmol/L (3.4-5.0); Sodium 134 mmol/L (137-145)
[2020-11-20] MEDS: ACETAMINOPHEN 325 MG TABLET 650 MG PO (04:56)
[2020-11-20 08:07] LABS: Alanine Aminotransferase 29 U/L (4-50)
[2020-11-20 08:28] LABS: INR 1.2; Prothrombin Time 15.8 Seconds (11.1-14.7)
[2020-11-20] MEDS: DEXAMETHASONE 2 MG TABLET 6 MG PO (08:58)
[2020-11-20] MEDS: BENZONATATE 100 MG CAPSULE 200 MG PO ×3 (08:58→17:35)
[2020-11-20] MEDS: OMEGA 3 POLYUNSAT FATTY ACIDS 1 GM CAP 2 GM PO (08:58)
[2020-11-20] MEDS: CHOLECALCIFEROL 1,000 UNITS TABLET 2000 UNITS PO (08:58)
[2020-11-20] MEDS: amLODIPine BESYLATE 5 MG TABLET PO (08:59)
[2020-11-20] MEDS: APIXABAN 5 MG TABLET PO ×2 (08:59→21:50)
[2020-11-20] MEDS: PRAVASTATIN SODIUM 20 MG TABLET PO (08:59)
[2020-11-20] MEDS: REMDESIVIR 200 MG/NS 250 ML 200 MG/250 ML BAG 250 MG IVPB (09:18)
--- NOTE | 2020-11-20 12:28 | PM.IMPN ---
Progress Note: A&P Assessment and Plan (1) Pneumonia due to 2019 novel coronavirus: Code(s): U07.1 - COVID-19; J12.82 - Pneumonia due to coronavirus disease 2019 Status: Acute Assessment and Plan: -Patient tested positive 6 days ago and started having symptoms 9 days ago -he is on 1 L of oxygen right now but was up to 5L earlier -Remdesivir started and plasma ordered -continue Decadron and Eliquis (2) Atrial fibrillation, new onset: Code(s): I48.91 - Unspecified atrial fibrillation Status: Acute Assessment and Plan: New onset -Pt is doing well on the Cardizem drip and HR is 80 -Continue Eliquis -Cardiology consulted, plan for outpt cardioversion if he doesn't spontaneously resolve -TSH normal (3) Elevated serum creatinine: Code(s): R79.89 - Other specified abnormal findings of blood chemistry Status: Acute Assessment and Plan: Cr better today 1.7 down from 1.9 -likely has baseline dysfunction since in october it was slightly elevated -He has a hx of cysts on his kidneys -New u/s showing possible RCC, will order CT abdomen with contrast -He will need to follow-up with Dr. Monroy if it doesn't improve. (4) Hypertension: Code(s): I10 - Essential (primary) hypertension Status: Acute Assessment and Plan: Last bp 116/74 - Continue amlodipine -Irbesartan currently on hold due to worsening creatinine. (5) Hyperlipidemia: Qualifiers: Hyperlipidemia type: other hyperlipidemia Qualified Code(s): E78.49 - Other hyperlipidemia Code(s): E78.5 - Hyperlipidemia, unspecified Status: Acute Assessment and Plan: Continue statin, LFTs within normal limits. Subjective Date/time seen: 11/20/20 12:28 Interval history: Pt is a 65-year-old male here for AFib/COVID-19. Patient was seen today and states he is doing well. He continues to cough which is worse at night and is a dry cough. He does not have any chest pain or significant shortness of breath but has not been really moving this morning. We talked about the treatment of COVID-19 and he would like to go for with Remdesivir and plasma. He did have a fever this morning. He states he has a hx of kidney cysts seen on MRI in the past but no hx of cancer. He denies chills, nausea, vomiting, abdominal pain or leg swelling. He can taste and smell and has a good appetite. Exam Narrative: Exam Narrative: General: Well developed well nourished patient in NAD HEENT: normocephalic Neck: supple Neuro: Alert and oriented x4 CV: Irregularly irregular rate of 80 on exam. tele shows controlled afib Resp: Decreased breath sounds but overall clear, no wheezing or rhonchi. Abd: Soft, non distended. No pain to palpation. Positive bowel sounds Extremities: No swelling, erythema, or pain to palpation. Objective Data Vital Signs Vital Signs: Vital Signs - 24 hr 11/19/20 14:00 11/19/20 16:00 11/19/20 18:00 Temperature 97.6 F Pulse Rate 78 66 72 Respiratory Rate 14 Blood Pressure 102/66 Pulse Oximetry 97 11/19/20 20:00 11/19/20 22:00 11/19/20 23:10 Temperature 98.4 F 98.9 F Pulse Rate 85 76 77 Respiratory Rate 18 20 Blood Pressure 122/77 101/50 L Pulse Oximetry 97 94 11/20/20 00:00 11/20/20 02:00 11/20/20 04:00 Temperature 102.1 F H Pulse Rate 88 98 110 H Respiratory Rate 24 H Blood Pressure 149/91 H Pulse Oximetry 91 89 L 11/20/20 04:56 11/20/20 05:29 11/20/20 06:00 Temperature 102 F H 99.3 F Pulse Rate 69 Respiratory Rate Blood Pressure Pulse Oximetry 11/20/20 06:30 11/20/20 08:00 11/20/20 10:00 Temperature 99.3 F 98.4 F Pulse Rate 94 72 Respiratory Rate 22 H Blood Pressure 103/64 Pulse Oximetry 94 11/20/20 12:00 Temperature Pulse Rate 72 Respiratory Rate 22 H Blood Pressure Pulse Oximetry 94 Intake/Output Intake/Output: Intake & Output 11/17/20 11/18/20 11/19/20
--- NOTE | 2020-11-20 15:53 | PM.PNCARD ---
Progress Note: A&P Assessment and Plan (1) Atrial fibrillation, new onset: Code(s): I48.91 - Unspecified atrial fibrillation Status: Acute Assessment and Plan: New onset of AFib RVR, rate currently controlled with IV Cardizem. Will switch to p.o. Cardizem. Anticoagulated now with Eliquis. Recommended ongoing rate control and anticoagulation therapy to the patient, no need for cardioversion this admission. If the patient remains in atrial fibrillation after recovery will pursue cardioversion. (2) Pneumonia due to 2019 novel coronavirus: Code(s): U07.1 - COVID-19; J12.82 - Pneumonia due to coronavirus disease 2018 Status: Acute Assessment and Plan: On remdesivir, decadron, etc.. Minimal oxygen needs. (3) Hypertension: Code(s): I10 - Essential (primary) hypertension Status: Acute Assessment and Plan: Blood pressure at goal w/ just amlodipine, which I will discontinue in favor of cardizem. Irbesartan on hold 2nd ANTHONY. (4) CKD (chronic kidney disease), stage III: Code(s): N18.30 - Chronic kidney disease, stage 3 unspecified Status: Acute Assessment and Plan: Followed by Dr. Monroy, improved after IV fluids. Renal ultrasound of concern for renal cell carcinoma. Workup per hospitalist. Subjective Date/time seen: 11/20/20 15:53 Interval history: Follow-up for new onset of AFib RVR associated with COVID 19 pneumonia. Date of service 11/20/2020: Patient is feeling better, less short of breath, improved cough. Started on remdesivir. Remains on Cardizem drip with heart rates 70s to 90s. Patient remains concerned about the atrial fibrillation, asked again about cardioversion. Echo showed normal LV function, EF 55-60%, right-sided enlargement. Review of Systems Constitutional: Constitutional: Reports fatigue, Reports lethargy and Reports weakness Eyes: Eyes: Reports no additional eye complaints ENT: Reports dysphagia (Mild sore scratchy throat) Cardiovascular: Cardiovascular: Denies chest pain, Denies pedal edema, Denies lightheadedness and Denies palpitations Respiratory: Respiratory: Reports cough, Denies hemoptysis, Reports dyspnea and Reports dyspnea on exertion Gastrointestinal: Gastrointestinal: Denies abdominal pain Genitourinary: Genitourinary: Reports no additional male genitourinary complaints Musculoskeletal: Musculoskeletal: Reports no additional musculoskeletal complaints Integumentary/Breasts: Skin/Breast: Denies rash Neurologic: Denies confusion Psychiatric: Psychiatric: Denies behavioral changes Exam Narrative: Exam Narrative: Sitting up in a chair, occasional mild cough Const: General: comfortable and no acute distress HENMT: General nose exam: no epistaxis Neck: Neck: supple Resp: Effort & Inspection: normal respiratory effort Auscultation: clear to auscultation bilaterally Cardio: Rate: regular rate Rhythm: abnormal rhythm irregularly irregular GI: GI Palp: Yes Soft to palpation Skin: General skin exam: no rashes or lesions noted Neuro: Cognition (Neuro): normal cognition Speech: normal speech Motor exam (neuro): Normal motor muscle tone present throughout Extrem: General: no edema and no pedal edema Psych: Affect: Anxious affect present Objective Data Vital Signs Vital Signs: Vital Signs - 24 hr 11/19/20 16:00 11/19/20 18:00 11/19/20 20:00 Temperature 97.6 F 98.4 F Pulse Rate 66 72 85 Respiratory Rate 14 18 Blood Pressure 102/66 122/77 Pulse Oximetry 97 97 11/19/20 22:00 11/19/20 23:10 11/20/20 00:00 Temperature 98.9 F Pulse Rate 76 77 88 Respiratory Rate 20 Blood Pressure 101/50 L Pulse Oximetry 94 91 11/20/20 02:00 11/20/20 04:00 11/20/20 04:56 Temperature 102.1 F H 102 F H Pulse Rate 98 110 H Respir
[2020-11-20] MEDS: TUBING, BLOOD PLUM PUMP TUBING 1 EACH XX (20:50)
[2020-11-20] MEDS: SODIUM CHLORIDE 0.9% IV 250 ML 30 ML IV CONT (20:50)
[2020-11-20] MEDS: dilTIAZem HCL 60 MG TABLET PO (21:50)
[2020-11-21] VITALS (14 sets, daily range): BP systolic 112–134; BP diastolic 56–86; PULSE 57–120; RESP 16–24; TEMP 36.2–37.2; O2SAT 92–98
[2020-11-21 05:03] LABS: Hematocrit 41.2 % (42.0-52.0); Hemoglobin 13.7 g/dL (14.0-18.0); Mean Corpuscular HGB Conc 33.3 g/dl (32-36); Mean Corpuscular Hemoglobin 28.1 pg (26-34); Mean Corpuscular Volume 84.4 fl (80-100); Mean Platelet Volume 11.3 fl (7.4-10.4); Platelet Count Result 167 k/mm3 (150-375); Red Blood Count 4.88 M/mm3 (4.6-6.20); Red Cell Distribution Width 15.4 % (11.5-14.5)
[2020-11-21 05:14] LABS: INR 1.4; Prothrombin Time 17.7 Seconds (11.1-14.7)
[2020-11-21 06:10] LABS: Alanine Aminotransferase 31 U/L (4-50); Albumin Level 3.3 g/dL (3.5-5.1); Alkaline Phosphatase 51 U/L (38-126); Anion Gap 6 mmol/L (8-16); Aspartate Amino Transferase 38 U/L (17-59); Bilirubin,Total 0.5 mg/dL (0.2-1.3); Blood Urea Nitrogen 29 mg/dL (9-20); CRP 16.4 mg/dL (<1.0); Calcium 7.9 mg/dL (8.4-10.2); Carbon Dioxide 24 mmol/L (22-30); Chloride 103 mmol/L (98-107); Estimated CRCL calculation 54 ml/min; Estimated Glomerular Filt Rate 41; Glucose 110 mg/dL (75-110); Magnesium 1.9 mg/dL (1.6-2.3); Potassium 4.1 mmol/L (3.4-5.0); Sodium 133 mmol/L (137-145)
[2020-11-21] MEDS: dilTIAZem HCL 60 MG TABLET PO ×3 (06:24→21:20)
[2020-11-21] MEDS: DEXAMETHASONE 2 MG TABLET 6 MG PO (08:41)
[2020-11-21] MEDS: BENZONATATE 100 MG CAPSULE 200 MG PO ×3 (08:41→16:51)
[2020-11-21] MEDS: PRAVASTATIN SODIUM 20 MG TABLET PO (08:41)
[2020-11-21] MEDS: CHOLECALCIFEROL 1,000 UNITS TABLET 2000 UNITS PO (08:42)
[2020-11-21] MEDS: APIXABAN 5 MG TABLET PO ×2 (08:43→21:20)
[2020-11-21] MEDS: OMEGA 3 POLYUNSAT FATTY ACIDS 1 GM CAP 2 GM PO (08:43)
--- NOTE | 2020-11-21 09:33 | PM.PNCARD ---
Progress Note: A&P Assessment and Plan (1) Atrial fibrillation, new onset: Code(s): I48.91 - Unspecified atrial fibrillation Status: Acute Assessment and Plan: New onset of AFib RVR, rate currently controlled with IV Cardizem. Will switch to p.o. Cardizem. Anticoagulated now with Eliquis. Recommended ongoing rate control and anticoagulation therapy to the patient, no need for cardioversion this admission. If the patient remains in atrial fibrillation after recovery will pursue cardioversion.. Daily INRs. Also stop diltiazem drip completely. Heart rate is well controlled on oral diltiazem. May transition to long-acting Cardizem before discharge (2) Pneumonia due to 2019 novel coronavirus: Code(s): U07.1 - COVID-19; J12.82 - Pneumonia due to coronavirus disease 2018 Status: Acute Assessment and Plan: On remdesivir, decadron, etc.. Minimal oxygen needs. (3) Hypertension: Code(s): I10 - Essential (primary) hypertension Status: Acute Assessment and Plan: Blood pressure at goal w/ just amlodipine, which I will discontinue in favor of cardizem. Irbesartan on hold 2nd ANTHONY. (4) CKD (chronic kidney disease), stage III: Code(s): N18.30 - Chronic kidney disease, stage 3 unspecified Status: Acute Assessment and Plan: Followed by Dr. Monroy, improved after IV fluids. Renal ultrasound of concern for renal cell carcinoma. Workup per hospitalist. Subjective Date/time seen: 11/21/20 09:33 Interval history: Follow-up for new onset of AFib RVR associated with COVID 19 pneumonia. Date of service 11/20/2020: Patient is feeling better, less short of breath, improved cough. Started on remdesivir. Remains on Cardizem drip with heart rates 70s to 90s. Patient remains concerned about the atrial fibrillation, asked again about cardioversion. Echo showed normal LV function, EF 55-60%, right-sided enlargement. Date of service 11/21/2020: From a cardiac perspective he is doing okay. He denies any chest pain, syncope. No palpitations, bleeding problems. Still has a significant cough and SOB Review of Systems Constitutional: Constitutional: Reports fatigue, Reports lethargy, Reports night sweats and Reports weakness Eyes: Eyes: Reports no additional eye complaints ENT: Reports dysphagia (Mild sore scratchy throat) and Denies epistaxis Cardiovascular: Cardiovascular: Denies chest pain, Reports diaphoresis, Denies pedal edema, Denies leg edema, Denies lightheadedness, Denies palpitations, Reports dyspnea and Reports dyspnea on exertion Respiratory: Respiratory: Reports cough, Denies hemoptysis, Reports dyspnea and Reports dyspnea on exertion Gastrointestinal: Gastrointestinal: Denies abdominal pain, Denies melena, Denies hematochezia, Reports dysphagia (Mild sore scratchy throat) and Denies hematemesis Genitourinary: Genitourinary: Reports no additional male genitourinary complaints and Denies hematuria Musculoskeletal: Musculoskeletal: Reports no additional musculoskeletal complaints, Reports back pain and Reports arthralgias Integumentary/Breasts: Skin/Breast: Denies rash Neurologic: Denies behavioral changes, Denies confusion and Reports weakness Psychiatric: Psychiatric: Denies behavioral changes and Denies confusion Endocrine: Endocrine: Reports fatigue and Denies palpitations Hematologic/Lymphatic: Hematologic/Lymphatic: Denies easy bleeding Allergic/Immunologic: Allergic/Immunologic: Denies GI upset with certain foods Exam Narrative: Exam Narrative: Sitting up in a chair, occasional mild cough Const: General: comfortable and no acute distress; No confusion Orientation/consciousness: No confusion HENMT: General nose exam: no epistaxis Mouth: Yes moist mucous membranes Eyes: EOM: EOMs int
[2020-11-21] MEDS: REMDESIVIR 100 MG/NS 250 ML 100 MG/250 ML BAG 250 MG IVPB (10:59)
--- NOTE | 2020-11-21 14:36 | PM.IMPN ---
Progress Note: A&P Assessment and Plan (1) Pneumonia due to 2019 novel coronavirus: Code(s): U07.1 - COVID-19; J12.82 - Pneumonia due to coronavirus disease 2019 Status: Acute Assessment and Plan: -Patient tested positive 7 days ago and started having symptoms 10 days ago -he is on 1 L of oxygen right now but needs more oxygen at night due to coughing -will adjust cough medications -continue Remdesivir; creatinine at baseline and liver function is okay -plasma given 11/20/20 -continue Decadron and Eliquis (2) Atrial fibrillation, new onset: Code(s): I48.91 - Unspecified atrial fibrillation Status: Acute Assessment and Plan: New onset this stay -Cardizem drip transition to p.o. -Continue Eliquis -Cardiology consulted -TSH normal (3) Elevated serum creatinine: Code(s): R79.89 - Other specified abnormal findings of blood chemistry Status: Acute Assessment and Plan: Cr better today 1.7 down from 1.9 -likely has baseline dysfunction since in october it was slightly elevated -He has a hx of cysts on his kidneys -New u/s and CT showing possible RCC -He will need to follow-up with Dr. Monroy if it doesn't improve. (4) Hypertension: Code(s): I10 - Essential (primary) hypertension Status: Acute Assessment and Plan: Last bp 124/86 - Continue amlodipine and Cardizem -Irbesartan currently on hold due to creatinine. (5) Hyperlipidemia: Qualifiers: Hyperlipidemia type: other hyperlipidemia Qualified Code(s): E78.49 - Other hyperlipidemia Code(s): E78.5 - Hyperlipidemia, unspecified Status: Acute Assessment and Plan: Continue statin, LFTs within normal limits. (6) Abnormal CT scan, kidney: Code(s): R93.429 - Abnormal radiologic findings on diagnostic imaging of unspecified kidney Status: Acute Assessment and Plan: Patient has a history of renal cysts but there is evidence of some abnormality on the ultrasound and CT which could be a concern for cancer -I recommend he follow-up with a urologist and MRI outpatient. He agrees Subjective Date/time seen: 11/21/20 14:36 Interval history: Patient is 65-year-old male who is here for COVID-19 with previous AFib RVR. Patient was seen today and states he does well during the day but he is having trouble with coughing at night. He coughs so much that he thinks he is going to throw up his oxygen is down. He is better during the day and is able to walk in the room without oxygen but he monitors his oxygen and if it goes down less than 90 he will sit down. He has absolutely no chest pain, nausea, vomiting, or chills. He got the plasma yesterday without issue. We discussed his CT findings and he is going to follow up with a urologist and MRI at discharge.. Exam Narrative: Exam Narrative: General: Well developed well nourished patient in NAD HEENT: normocephalic Neck: supple Neuro: Alert and oriented x4 CV: Irregularly irregular rate of 78 on exam. tele shows controlled afib Resp: Decreased breath sounds but overall clear, no wheezing or rhonchi. Abd: Soft, non distended. No pain to palpation. Positive bowel sounds Extremities: No swelling, erythema, or pain to palpation. Objective Data Vital Signs Vital Signs: Vital Signs - 24 hr 11/20/20 14:37 11/20/20 16:00 11/20/20 18:00 Temperature 97.1 F L Pulse Rate 88 75 81 Respiratory Rate 26 H Blood Pressure 107/70 Pulse Oximetry 94 11/20/20 20:00 11/20/20 20:08 11/20/20 20:09 Temperature 99.9 F H 99.9 F H 99.9 F H Pulse Rate 98 87 87 Respiratory Rate 20 18 18 Blood Pressure 144/88 H 144/88 H 144/88 H Pulse Oximetry 95 93 93 11/20/20 20:25 11/20/20 22:00 11/20/20 23:44 Temperature 98.4 F 98.1 F Pulse Rate 87 83 91 Respiratory Rate 20 20 20 Blood Pressure 125/95 H 133/63 Pulse Oximetry 95 85 L 92 11/20/20 23:48 11/21/20 00:00 11/21/20 02:00 Tem
[2020-11-22] VITALS (16 sets, daily range): BP systolic 100–151; BP diastolic 73–93; PULSE 37–96; RESP 12–22; TEMP 36–36.6; O2SAT 91–98
[2020-11-22 04:58] LABS: Hemoglobin 14.1 g/dL (14.0-18.0); Mean Corpuscular HGB Conc 32.8 g/dl (32-36); Mean Corpuscular Hemoglobin 28.1 pg (26-34); Mean Corpuscular Volume 85.7 fl (80-100); Mean Platelet Volume 10.9 fl (7.4-10.4); Platelet Count Result 209 k/mm3 (150-375); Red Blood Count 5.02 M/mm3 (4.6-6.20); Red Cell Distribution Width 15.5 % (11.5-14.5)
[2020-11-22 05:12] LABS: Alanine Aminotransferase 30 U/L (4-50); Albumin Level 3.2 g/dL (3.5-5.1); Alkaline Phosphatase 49 U/L (38-126); Anion Gap 6 mmol/L (8-16); Aspartate Amino Transferase 32 U/L (17-59); Bilirubin,Total 0.7 mg/dL (0.2-1.3); Blood Urea Nitrogen 29 mg/dL (9-20); CRP 8.2 mg/dL (<1.0); Calcium 7.9 mg/dL (8.4-10.2); Carbon Dioxide 27 mmol/L (22-30); Chloride 103 mmol/L (98-107); Estimated CRCL calculation 65 ml/min; Estimated Glomerular Filt Rate 51; Glucose 122 mg/dL (75-110); INR 1.4; Magnesium 2.2 mg/dL (1.6-2.3); Prothrombin Time 17.4 Seconds (11.1-14.7); Sodium 136 mmol/L (137-145)
[2020-11-22] MEDS: dilTIAZem HCL 60 MG TABLET PO ×3 (05:38→21:10)
[2020-11-22] MEDS: DEXAMETHASONE 2 MG TABLET 6 MG PO (08:15)
[2020-11-22] MEDS: BENZONATATE 100 MG CAPSULE 200 MG PO ×3 (08:15→17:04)
[2020-11-22] MEDS: APIXABAN 5 MG TABLET PO ×2 (08:16→21:10)
[2020-11-22] MEDS: PRAVASTATIN SODIUM 20 MG TABLET PO (08:16)
[2020-11-22] MEDS: CHOLECALCIFEROL 1,000 UNITS TABLET 2000 UNITS PO (08:16)
[2020-11-22] MEDS: OMEGA 3 POLYUNSAT FATTY ACIDS 1 GM CAP 2 GM PO (08:16)
[2020-11-22] MEDS: REMDESIVIR 100 MG/NS 250 ML 100 MG/250 ML BAG 250 MG IVPB (10:24)
--- NOTE | 2020-11-22 10:26 | PM.PNCARD ---
Progress Note: A&P Assessment and Plan (1) Atrial fibrillation, new onset: Code(s): I48.91 - Unspecified atrial fibrillation Status: Acute Assessment and Plan: New onset of AFib RVR, rate currently controlled with IV Cardizem. Will switch to p.o. Cardizem. Anticoagulated now with Eliquis. Recommended ongoing rate control and anticoagulation therapy to the patient, no need for cardioversion this admission. If the patient remains in atrial fibrillation after recovery will pursue cardioversion.. Daily INRs. Continue diltiazem orally (2) Pneumonia due to 2019 novel coronavirus: Code(s): U07.1 - COVID-19; J12.82 - Pneumonia due to coronavirus disease 2018 Status: Acute Assessment and Plan: On remdesivir, decadron, etc.. Minimal oxygen needs. (3) Hypertension: Code(s): I10 - Essential (primary) hypertension Status: Acute Assessment and Plan: Blood pressure at goal w/ just amlodipine, which I will discontinue in favor of cardizem. Irbesartan on hold 2nd ANTHONY. (4) CKD (chronic kidney disease), stage III: Code(s): N18.30 - Chronic kidney disease, stage 3 unspecified Status: Acute Assessment and Plan: Followed by Dr. Monroy, improved after IV fluids. Renal ultrasound of concern for renal cell carcinoma. Workup per hospitalist. Subjective Date/time seen: 11/22/20 10:26 Interval history: Follow-up for new onset of AFib RVR associated with COVID 19 pneumonia. Date of service 11/20/2020: Patient is feeling better, less short of breath, improved cough. Started on remdesivir. Remains on Cardizem drip with heart rates 70s to 90s. Patient remains concerned about the atrial fibrillation, asked again about cardioversion. Echo showed normal LV function, EF 55-60%, right-sided enlargement. Date of service 11/21/2020: From a cardiac perspective he is doing okay. He denies any chest pain, syncope. No palpitations, bleeding problems. Still has a significant cough and SOB Date of service 11/22/2020: He is feeling better today. He denies any chest pain or shortness of breath. Cough has improved. Dyspnea with walking to and from the bathroom but otherwise better Review of Systems Constitutional: Constitutional: Reports fatigue, Reports lethargy, Reports night sweats and Reports weakness Eyes: Eyes: Reports no additional eye complaints ENT: Reports dysphagia (Mild sore scratchy throat) and Denies epistaxis Cardiovascular: Cardiovascular: Denies chest pain, Reports diaphoresis, Denies pedal edema, Denies leg edema, Denies lightheadedness, Denies palpitations, Reports dyspnea and Reports dyspnea on exertion Respiratory: Respiratory: Reports cough, Denies hemoptysis, Reports dyspnea and Reports dyspnea on exertion Gastrointestinal: Gastrointestinal: Denies abdominal pain, Denies melena, Denies hematochezia, Reports dysphagia (Mild sore scratchy throat) and Denies hematemesis Genitourinary: Genitourinary: Reports no additional male genitourinary complaints and Denies hematuria Musculoskeletal: Musculoskeletal: Reports no additional musculoskeletal complaints, Reports back pain and Reports arthralgias Integumentary/Breasts: Skin/Breast: Denies rash Neurologic: Denies behavioral changes, Denies confusion and Reports weakness Psychiatric: Psychiatric: Denies behavioral changes and Denies confusion Endocrine: Endocrine: Reports fatigue and Denies palpitations Hematologic/Lymphatic: Hematologic/Lymphatic: Denies easy bleeding Allergic/Immunologic: Allergic/Immunologic: Denies GI upset with certain foods Exam Narrative: Exam Narrative: Sitting up in a chair Const: General: comfortable and no acute distress; No confusion Orientation/consciousness: No confusion HENMT: General nose exam: no epistaxis
--- NOTE | 2020-11-22 13:49 | PM.IMPN ---
Progress Note: A&P Assessment and Plan (1) Pneumonia due to 2019 novel coronavirus: Code(s): U07.1 - COVID-19; J12.82 - Pneumonia due to coronavirus disease 2019 Status: Acute Assessment and Plan: Patient tested positive 11/14 for COVID and noted he started symptoms 2 or 3 before. CXR shows bilateral pulmonary infiltrates consistent with bilateral pneumonia. Continue dexamethasone (day 5); remdesivir (day 3). Continue supplemental O2 and wean as tolerated to keep O2 saturations > 90%. Improving today, tolerating 1 L/min NC without respiratory distress. Continue supportive care with Tylenol for fevers, albuterol MDI PRN, guaifenesin PRN, incentive spirometer. (2) Atrial fibrillation, new onset: Code(s): I48.91 - Unspecified atrial fibrillation Status: Acute Assessment and Plan: New onset this stay. Continues on oral cardizem with good rate control and stable BPs thus far today. Remains on Eliquis. Appreciate cardiology input. (3) Elevated serum creatinine: Code(s): R79.89 - Other specified abnormal findings of blood chemistry Status: Acute Assessment and Plan: Cr better today 1.4 down from 1.9. May have baseline renal dysfunction as Cr was slightly elevated in October also. Monitor renal function and avoid nephrotoxic agents when possible. (4) Hypertension: Code(s): I10 - Essential (primary) hypertension Status: Chronic Assessment and Plan: BPs reviewed, stable. Last 135/73. Home norvasc discontinued in light of new cardizem. ARB held secondary to ANTHONY. Monitor BP and adjust treatment as needed. (5) Hyperlipidemia: Qualifiers: Hyperlipidemia type: other hyperlipidemia Qualified Code(s): E78.49 - Other hyperlipidemia Code(s): E78.5 - Hyperlipidemia, unspecified Status: Chronic Assessment and Plan: Continue home statin therapy. (6) Abnormal CT scan, kidney: Code(s): R93.429 - Abnormal radiologic findings on diagnostic imaging of unspecified kidney Status: Acute Assessment and Plan: He has a history of renal cysts; new US and CT showing evidence of possible renal cell carcinoma. Recommend he follow-up with a urologist and MRI outpatient. Subjective Date/time seen: 11/22/20 1100 Interval history: Mr. Elias is a pleasant 65yo M admitted for COVID-19, new a flutter. He is seen in follow up today and reports he is doing well, notices he is improving. He feels no shortness of breath at rest but does get winded with walking. He is walking laps in his room independently, monitors his O2 saturation on the monitor and if it goes below 90% he will rest. He denies chest pain, nausea, vomiting or abdominal pain. Review of Systems Review of Systems: All systems reviewed & are unremarkable except as noted in HPI and below Exam Narrative: Exam Narrative: General: Well-developed, well nourished male resting comfortably sitting up in bedside chair working on his laptop, in no acute distress. HEENT: Normocephalic, EOMI, oral mucosa moist. Neck: Supple Neuro: Alert and oriented x4. No focal neuro deficits noted. Speech is clear. CV: Rate and rhythm are irregular. Telemetry review shows rate controlled afib/flutter HRs 70s. Resp: Decreased breath sounds but overall clear, no wheezing or rhonchi. Respirations even and nonlabored. Tolerating 1L NC. Abd: Soft, non distended. No pain to palpation. Positive bowel sounds Extremities: No swelling, erythema, or pain to palpation. Objective Data Vital Signs Vital Signs: Last Vital Signs Temp 97.5 F L 11/22/20 12:00 Pulse 67 11/22/20 12:00 Resp 12 11/22/20 12:00 BP 135/73 11/22/20 12:00 Pulse Ox
[2020-11-23] VITALS (11 sets, daily range): BP systolic 117–151; BP diastolic 71–88; PULSE 55–91; RESP 16–22; TEMP 36.2–36.6; O2SAT 16–99
[2020-11-23] MEDS: dilTIAZem HCL 60 MG TABLET PO ×3 (05:21→20:49)
[2020-11-23 05:42] LABS: INR 1.2; Prothrombin Time 15.6 Seconds (11.1-14.7)
[2020-11-23 06:45] LABS: Alanine Aminotransferase 27 U/L (4-50); Albumin Level 2.9 g/dL (3.5-5.1); Alkaline Phosphatase 47 U/L (38-126); Anion Gap 5 mmol/L (8-16); Aspartate Amino Transferase 24 U/L (17-59); Bilirubin,Total 0.4 mg/dL (0.2-1.3); Blood Urea Nitrogen 26 mg/dL (9-20); Calcium 7.8 mg/dL (8.4-10.2); Carbon Dioxide 29 mmol/L (22-30); Chloride 104 mmol/L (98-107); Estimated CRCL calculation 70 ml/min; Estimated Glomerular Filt Rate 55; Glucose 119 mg/dL (75-110); Magnesium 2.1 mg/dL (1.6-2.3); Potassium 4.4 mmol/L (3.4-5.0); Sodium 138 mmol/L (137-145)
[2020-11-23] MEDS: REMDESIVIR 100 MG/NS 250 ML 100 MG/250 ML BAG 250 MG IVPB (09:42)
[2020-11-23] MEDS: BENZONATATE 100 MG CAPSULE 200 MG PO ×2 (09:43→13:10)
[2020-11-23] MEDS: CHOLECALCIFEROL 1,000 UNITS TABLET 2000 UNITS PO (09:43)
[2020-11-23] MEDS: PRAVASTATIN SODIUM 20 MG TABLET PO (09:43)
[2020-11-23] MEDS: OMEGA 3 POLYUNSAT FATTY ACIDS 1 GM CAP 2 GM PO (09:43)
[2020-11-23] MEDS: APIXABAN 5 MG TABLET PO ×2 (09:43→20:49)
[2020-11-23] MEDS: DEXAMETHASONE 2 MG TABLET 6 MG PO (09:43)
--- NOTE | 2020-11-23 10:18 | PM.PNCARD ---
Progress Note: A&P Assessment and Plan (1) Atrial fibrillation, new onset: Code(s): I48.91 - Unspecified atrial fibrillation Status: Acute Assessment and Plan: New onset of AFib RVR, rate currently controlled with IV Cardizem. Will switch to p.o. Cardizem. Anticoagulated now with Eliquis. Recommended ongoing rate control and anticoagulation therapy to the patient, no need for cardioversion this admission. If the patient remains in atrial fibrillation after recovery will pursue cardioversion.. Daily INRs. Continue diltiazem orally. DC planning from a cardiac perspective. Plan as outlined above (2) Pneumonia due to 2019 novel coronavirus: Code(s): U07.1 - COVID-19; J12.82 - Pneumonia due to coronavirus disease 2018 Status: Acute Assessment and Plan: On remdesivir, decadron, etc.. Minimal oxygen needs. (3) Hypertension: Code(s): I10 - Essential (primary) hypertension Status: Chronic Assessment and Plan: Blood pressure at goal w/ just amlodipine, which I will discontinue in favor of cardizem. Irbesartan on hold 2nd ANTHONY. (4) CKD (chronic kidney disease), stage III: Code(s): N18.30 - Chronic kidney disease, stage 3 unspecified Status: Acute Assessment and Plan: Followed by Dr. Monroy, improved after IV fluids. Renal ultrasound of concern for renal cell carcinoma. Workup per hospitalist. Subjective Date/time seen: 11/23/20 10:18 Interval history: Follow-up for new onset of AFib RVR associated with COVID 19 pneumonia. Date of service 11/20/2020: Patient is feeling better, less short of breath, improved cough. Started on remdesivir. Remains on Cardizem drip with heart rates 70s to 90s. Patient remains concerned about the atrial fibrillation, asked again about cardioversion. Echo showed normal LV function, EF 55-60%, right-sided enlargement. Date of service 11/21/2020: From a cardiac perspective he is doing okay. He denies any chest pain, syncope. No palpitations, bleeding problems. Still has a significant cough and SOB Date of service 11/23/2020: No complaints. No chest pain or shortness of breath. Review of Systems Constitutional: Constitutional: Reports fatigue, Reports lethargy, Reports night sweats and Reports weakness Eyes: Eyes: Reports no additional eye complaints ENT: Reports dysphagia (Mild sore scratchy throat) and Denies epistaxis Cardiovascular: Cardiovascular: Denies chest pain, Reports diaphoresis, Denies pedal edema, Denies leg edema, Denies lightheadedness, Denies palpitations, Reports dyspnea and Reports dyspnea on exertion Respiratory: Respiratory: Reports cough, Denies hemoptysis, Reports dyspnea and Reports dyspnea on exertion Gastrointestinal: Gastrointestinal: Denies abdominal pain, Denies melena, Denies hematochezia, Reports dysphagia (Mild sore scratchy throat) and Denies hematemesis Genitourinary: Genitourinary: Reports no additional male genitourinary complaints and Denies hematuria Musculoskeletal: Musculoskeletal: Reports no additional musculoskeletal complaints, Reports back pain and Reports arthralgias Integumentary/Breasts: Skin/Breast: Denies rash Neurologic: Denies behavioral changes, Denies confusion and Reports weakness Psychiatric: Psychiatric: Denies behavioral changes and Denies confusion Endocrine: Endocrine: Reports fatigue and Denies palpitations Hematologic/Lymphatic: Hematologic/Lymphatic: Denies easy bleeding Allergic/Immunologic: Allergic/Immunologic: Denies GI upset with certain foods Exam Narrative: Exam Narrative: Sitting up in a chair Const: General: comfortable and no acute distress; No confusion Orientation/consciousness: No confusion HENMT: General nose exam: no epistaxis Mouth: Yes moist mucous membranes Resp:
--- NOTE | 2020-11-23 15:42 | PM.IMPN ---
Progress Note: A&P Assessment and Plan (1) Pneumonia due to 2019 novel coronavirus: Code(s): U07.1 - COVID-19; J12.82 - Pneumonia due to coronavirus disease 2019 Status: Acute Assessment and Plan: Patient tested positive 11/14 for COVID and noted he started symptoms 2 or 3 days before. CXR shows bilateral pulmonary infiltrates consistent with bilateral pneumonia. Continue dexamethasone (day 6); remdesivir (day 4). Tolerating room air today with adequate O2 saturations. Anticipate discharge tomorrow. Continue supportive care with Tylenol for fevers, albuterol MDI PRN, guaifenesin PRN, incentive spirometer. (2) Atrial fibrillation, new onset: Code(s): I48.91 - Unspecified atrial fibrillation Status: Acute Assessment and Plan: New onset this stay. Continues on oral cardizem with good rate control and stable BPs today. Remains on Eliquis. Appreciate cardiology input. Plan is for tentative cardioversion once he is recovered from COVID. (3) Elevated serum creatinine: Code(s): R79.89 - Other specified abnormal findings of blood chemistry Status: Acute Assessment and Plan: Cr better today 1.3 down from 1.9. May have baseline renal dysfunction as Cr was slightly elevated in October also. Monitor renal function and avoid nephrotoxic agents when possible. (4) Hypertension: Code(s): I10 - Essential (primary) hypertension Status: Chronic Assessment and Plan: BPs reviewed, stable. Last 131/80. Home norvasc discontinued in light of new cardizem. ARB held secondary to ANTHONY. Monitor BP and adjust treatment as needed. (5) Hyperlipidemia: Qualifiers: Hyperlipidemia type: other hyperlipidemia Qualified Code(s): E78.49 - Other hyperlipidemia Code(s): E78.5 - Hyperlipidemia, unspecified Status: Chronic Assessment and Plan: Continue home statin therapy. (6) Abnormal CT scan, kidney: Code(s): R93.429 - Abnormal radiologic findings on diagnostic imaging of unspecified kidney Status: Acute Assessment and Plan: He has a history of renal cysts; new US and CT showing evidence of possible renal cell carcinoma. Recommend he follow-up with a urologist and MRI outpatient. Discussed with patient again today. Subjective Date/time seen: 11/23/20 15:30 Interval history: Mr. Elias is a pleasant 65yo M admitted for COVID-19, new onset a fib. He is making good improvement. Tolerating room air through most of the day today even with exercise. He gets winded with some exercise but once he rests, he recovers quickly. He denies chest pain or palpitations. Tolerating oral intake without nausea or vomiting. In good spirits. Review of Systems Review of Systems: All systems reviewed & are unremarkable except as noted in HPI and below Exam Narrative: Exam Narrative: General: Male resting comfortably sitting up in bedside chair working on his laptop, in no acute distress. HEENT: Normocephalic, EOMI, oral mucosa moist. Neck: Supple Neuro: Alert and oriented x4. No focal neuro deficits noted. Speech is clear. CV: Rate and rhythm are irregular. Telemetry review shows rate controlled afib HRs 70s. Resp: Mild coarse breath sounds at ELENA bases. Respirations even and nonlabored. Tolerating room air. Abd: Soft, non distended. No pain to palpation. Positive bowel sounds Extremities: No swelling, erythema, or pain to palpation. Objective Data Vital Signs Vital Signs: Last Vital Signs Temp 97.8 F 11/23/20 12:00 Pulse 66 11/23/20 14:00 Resp 22 H 11/23/20 12:00 BP 131/80 11/23/20 12:00 Pulse Ox 95 11/23/20 12:00 Intake/Output Intake/Output: Intake & Output 11/20/20
--- NOTE | 2020-11-23 19:49 | PC.NURSE ---
This patient, David Elias, was transferred to [ [facility]] on 11/23/20 at 1942. Personal belongings sent with patient. Report given to [Umesh ]. Appropriate documentation sent with patient.
[2020-11-23] MEDS: guaiFENesin/CODEINE (*CRX) 200/20 MG 10 ML SYRUP PO (21:30)
[2020-11-24] VITALS (9 sets, daily range): BP systolic 114–135; BP diastolic 74–90; PULSE 64–96; RESP 16–20; TEMP 36.2–36.6; O2SAT 91–100
[2020-11-24] MEDS: dilTIAZem HCL 60 MG TABLET PO ×2 (05:38→13:30)
--- NOTE | 2020-11-24 06:50 | PC.NURSE ---
Patient arrived at arrived at 1940, we discussed Med-Surg policy differences, call light use, and when to call for help. He was alert, oriented, and independent in his room.
[2020-11-24 06:56] LABS: Alanine Aminotransferase 28 U/L (4-50); Estimated CRCL calculation 76 ml/min; Estimated Glomerular Filt Rate > 60
[2020-11-24] MEDS: DEXAMETHASONE 2 MG TABLET 6 MG PO (07:59)
[2020-11-24] MEDS: APIXABAN 5 MG TABLET PO (08:00)
[2020-11-24] MEDS: OMEGA 3 POLYUNSAT FATTY ACIDS 1 GM CAP 2 GM PO (08:00)
[2020-11-24] MEDS: BENZONATATE 100 MG CAPSULE 200 MG PO ×2 (08:00→12:03)
[2020-11-24] MEDS: PRAVASTATIN SODIUM 20 MG TABLET PO (08:01)
[2020-11-24] MEDS: CHOLECALCIFEROL 1,000 UNITS TABLET 2000 UNITS PO (08:01)
[2020-11-24] MEDS: REMDESIVIR 100 MG/NS 250 ML 100 MG/250 ML BAG 250 MG IVPB (09:53)
--- NOTE | 2020-11-24 10:23 | PCRCNOTE ---
HOME O2 EVAL COMPLETE, NO REQUIREMENTS.
--- NOTE | 2020-11-24 10:46 | PM.PNCARD ---
Progress Note: A&P Assessment and Plan (1) Atrial fibrillation, new onset: Code(s): I48.91 - Unspecified atrial fibrillation Status: Acute Assessment and Plan: New onset of AFib RVR, rate currently controlled with IV Cardizem. Will switch to p.o. Cardizem. Anticoagulated now with Eliquis. Recommended ongoing rate control and anticoagulation therapy to the patient, no need for cardioversion this admission. If the patient remains in atrial fibrillation after recovery will pursue cardioversion.. Daily INRs. Continue diltiazem orally. Okay for discharge from our perspective. Discharge home on Eliquis 5 mg p.o. b.i.d. as well as current dose of diltiazem. Outpatient follow-up and cardioversion (2) Pneumonia due to 2019 novel coronavirus: Code(s): U07.1 - COVID-19; J12.82 - Pneumonia due to coronavirus disease 2018 Status: Acute Assessment and Plan: On remdesivir, decadron, etc.. Minimal oxygen needs. (3) Hypertension: Code(s): I10 - Essential (primary) hypertension Status: Chronic Assessment and Plan: Blood pressure at goal w/ just amlodipine, which I will discontinue in favor of cardizem. Irbesartan on hold 2nd ANTHONY. (4) CKD (chronic kidney disease), stage III: Code(s): N18.30 - Chronic kidney disease, stage 3 unspecified Status: Acute Assessment and Plan: Followed by Dr. Monroy, improved after IV fluids. Renal ultrasound of concern for renal cell carcinoma. Workup per hospitalist. Subjective Date/time seen: 11/24/20 10:46 Interval history: Follow-up for new onset of AFib RVR associated with COVID 19 pneumonia. Date of service 11/20/2020: Patient is feeling better, less short of breath, improved cough. Started on remdesivir. Remains on Cardizem drip with heart rates 70s to 90s. Patient remains concerned about the atrial fibrillation, asked again about cardioversion. Echo showed normal LV function, EF 55-60%, right-sided enlargement. Date of service 11/21/2020: From a cardiac perspective he is doing okay. He denies any chest pain, syncope. No palpitations, bleeding problems. Still has a significant cough and SOB Date of service 11/24/2020: No complaints. No chest pain or shortness of breath. Ready for discharge Review of Systems Constitutional: Constitutional: Reports fatigue, Reports lethargy, Reports night sweats and Reports weakness Eyes: Eyes: Reports no additional eye complaints ENT: Reports dysphagia (Mild sore scratchy throat) and Denies epistaxis Cardiovascular: Cardiovascular: Denies chest pain, Reports diaphoresis, Denies pedal edema, Denies leg edema, Denies lightheadedness, Denies palpitations, Reports dyspnea and Reports dyspnea on exertion Respiratory: Respiratory: Reports cough, Denies hemoptysis, Reports dyspnea and Reports dyspnea on exertion Gastrointestinal: Gastrointestinal: Denies abdominal pain, Denies melena, Denies hematochezia, Reports dysphagia (Mild sore scratchy throat) and Denies hematemesis Genitourinary: Genitourinary: Reports no additional male genitourinary complaints and Denies hematuria Musculoskeletal: Musculoskeletal: Reports no additional musculoskeletal complaints, Reports back pain and Reports arthralgias Integumentary/Breasts: Skin/Breast: Denies rash Neurologic: Denies behavioral changes, Denies confusion and Reports weakness Psychiatric: Psychiatric: Denies behavioral changes and Denies confusion Endocrine: Endocrine: Reports fatigue and Denies palpitations Hematologic/Lymphatic: Hematologic/Lymphatic: Denies easy bleeding Allergic/Immunologic: Allergic/Immunologic: Denies GI upset with certain foods Exam Narrative: Exam Narrative: Sitting up in a chair Const: General: comfortable and no acute distress; No confusion [place]
--- NOTE | 2020-11-24 11:30 | PM.DS ---
DS: Admitting Diagnosis Admitting Diagnosis Admitting Diagnosis: new a fib RVR DS: Discharge Diagnosis Discharge Diagnosis (1) Pneumonia due to 2019 novel coronavirus: Code(s): U07.1 - COVID-19; J12.82 - Pneumonia due to coronavirus disease 2019 Status: Acute Assessment and Plan: Date of Admission 11/18/20 Date of Discharge 11/24/20 Mr. Elias is a very pleasant 65yo M with history of hypertension and dyslipidemia who presented to the ED 11/18/20 for evaluation of and weakness after testing positive for COVID-19 on 11/14/2020. Imaging demonstrated bilateral pulmonary infiltrates consistent with pneumonia. He was hypoxic and started on supplemental oxygen. He was started on dexamethasone and remdesivir. He was noted to be in atrial fibrillation with RVR on arrival. He denies chest pain or palpitations or any previous documented history of atrial fibrillation. He was evaluated by Cardiology, started on IV Cardizem drip and monitored with cardiac telemetry. Heart rates improved and his Cardizem was transitioned to oral formulation. Chads Vasc 2 score is 2 and he was started on Eliquis for stroke prophylaxis. Overall, he is clinically improved with therapy outlined above. He received 7 days of dexamethasone as well as 5 days of IV remdesivir. He does remain in atrial fibrillation and Cardiology has plans for cardioversion once he has recovered from COVID. He is hemodynamically stable for discharge on 11/24/20 with plans to follow-up with primary care as well as Cardiology. He is comfortable with his discharge plan today and he is educated on worrisome signs or symptoms to return to the ED for. Incidental finding of right renal mass is noted. He is known to have history of bilateral renal cysts. He is encouraged to follow-up with his primary care provider and may benefit from MRI for further evaluation, may need urology consult/biopsy. Patient tested positive 11/14 for COVID and noted he started symptoms 2 or 3 days before. CXR shows bilateral pulmonary infiltrates consistent with bilateral pneumonia. Treated with dexamethasone (day 7 -discharged with prescription to complete 10 day course); completed 5 day course of remdesivir. Tolerating room air today with adequate O2 saturations. Home oxygen evaluation shows he does not require supplemental O2 for home. (2) Atrial fibrillation, new onset: Code(s): I48.91 - Unspecified atrial fibrillation Status: Acute Assessment and Plan: New onset this stay. Started on Cardizem and Eliquis. Remains in atrial fibrillation with controlled rates on day of discharge. Appreciate cardiology input. Plan is for tentative cardioversion once he is recovered from COVID. (3) Elevated serum creatinine: Code(s): R79.89 - Other specified abnormal findings of blood chemistry Status: Resolved Assessment and Plan: Cr better today 1.2 down from 1.9. May have baseline renal dysfunction as Cr was slightly elevated in October also. (4) Hypertension: Code(s): I10 - Essential (primary) hypertension Status: Chronic Assessment and Plan: BPs reviewed, stable. Last 135/90. Home norvasc and irbesartan discontinued in light of new cardizem. (5) Hyperlipidemia: Qualifiers: Hyperlipidemia type: other hyperlipidemia Qualified Code(s): E78.49 - Other hyperlipidemia Code(s): E78.5 - Hyperlipidemia, unspecified Status: Chronic Assessment and Plan: Continue home statin therapy. (6) Abnormal CT scan, kidney: Code(s): R93.429 - Abnormal radiologic findings on diagnostic imaging of unspecified kidney Status: Acute Assessment and Plan: He has a history of
== END 2020-11-24 15:38 | disposition home or self-care (01) | DRG 177 ==
LOC: ANHED 13:03 → ANHIMU 13:14 → ANH3MEDSUR 11-24 07:08 → ANHIMU 11-25 15:29
PROVIDERS: Emergency Medicine Emergency Medical Services; Physician Assistant; Admitting Provider Internal Medicine; Emergency Provider General Practice; PCP Internal Medicine; Visit Provider Physician Assistant
DX: U07.1 COVID-19 (principal); J12.82 Pneumonia due to coronavirus disease 2019; N17.9 Acute kidney failure, unspecified; I12.9 Hypertensive chronic kidney disease with stage 1 through stage 4 chronic kidney disease, or unspecified chronic kidney disease; N18.30 Chronic kidney disease, stage 3 unspecified; I48.91 Unspecified atrial fibrillation; R93.429 Abnormal radiologic findings on diagnostic imaging of unspecified kidney; E78.49 Other hyperlipidemia; E86.0 Dehydration; N40.0 Benign prostatic hyperplasia without lower urinary tract symptoms; Z79.899 Other long term (current) drug therapy; Z87.891 Personal history of nicotine dependence
CPT/HCPCS: 36415; 36430; 71045; 71275; 74178; 76775; 80048; 80053; 80076; 82565; 82728; 83615; 83735; 84443; 84460; 84484; 85025; 85027; 85055; 85380; 85610; 85730; 86140; 86900; 86901; 93005; 94618; 94762; 96361; 96365; 96366; 96372; 96375; 96376; 99285; A9270; C8929; G0378; J0131; J1100; J1650; J7030; J7050; J7120; J8540; P9059; Q9957; Q9967

== ENCOUNTER 2020-12-13 10:41 | Outpatient (CLI) | payer OTHER, MEDICARE, SELFPAY ==
--- NOTE | ~2020-12-13 | MR_ITS ---
EXAMINATION: MR renal wo/w con DATE: 12/13/2020 11:40 INDICATION: 4 cm solid echogenic mass at the lower pole of the left kidney TECHNIQUE: Magnetic resonance imaging (MRI) of the abdomen was performed without and with 20 mL Multi pinky intravenous contrast. Sequences included coronal T2-weighted SS-FSE, coronal and axial FS 2D-F IESTA, axial STIR FSE, axial T2-weighted SS-FSE, axial T2-weighted FS SS-FSE, axial diffusion-weighte d SE, axial dual-echo T1-weighted FSPGR, and axial and coronal T1-weighted LAVA. Postcontrast axial T 1-weighted LAVA images were obtained in a time course. Postcontrast coronal T1-weighted LAVA images w ere obtained. COMPARISON: CT abdomen and pelvis dated 11/20/2020 FINDINGS: Heart size is normal. No pericardial or pleural effusion. Liver, gallbladder, spleen, pancreas and bi lateral adrenal glands are normal. Multiple bilateral T2 hyperintense and nonenhancing renal cysts, t he largest on the left at the upper pole measuring up to 2.7 cm in maximal diameter. The largest on t he right measures 9.8 cm with several hairline thin internal septations with no evident enhancement o r solid component on postcontrast imaging consistent with a Bosniak 2 cyst. 3.7 cm solid enhancing ex ophytic mass arising from the lateral lower pole of the left kidney consistent with renal cell carcin [place]. Visualized portions of the bowels are unremarkable with no obstruction. No pathologically enlarg ed abdominal lymphadenopathy. Severe lumbar spondylosis. T11 hemangioma. A few Schmorl's nodes in the lower thoracic spine. IMPRESSION: 1. 3.7 cm enhancing exophytic mass arising from the lower pole of the left kidney consistent with giovanny al cell carcinoma. Reviewed, dictated and finalized at location A. IMPRESSION: 1. 3.7 cm enhancing exophytic mass arising from the lower pole of the left kidn ey consistent with renal cell carcinoma.
== END 2020-12-13 10:42 | disposition home or self-care (01) ==
PROVIDERS: PCP Internal Medicine; Visit Provider Physician Assistant
DX: N28.89 Other specified disorders of kidney and ureter (principal)
CPT/HCPCS: 74183; A9577

== ENCOUNTER → 2020-12-26 03:33 | Outpatient (CLI) | payer OTHER, MEDICARE, SELFPAY ==
[2020-12-28 12:55] LABS: SARS-CoV-2 RNA PCR Negative
== END ==
PROVIDERS: PCP Internal Medicine; Visit Provider Internal Medicine Cardiovascular Disease
DX: Z01.812 Encounter for preprocedural laboratory examination (principal); Z20.822 Contact with and (suspected) exposure to COVID-19
CPT/HCPCS: C9803; U0003; U0005

== ENCOUNTER 2020-12-29 01:31 | Day surgery (SDC) | payer OTHER, MEDICARE, SELFPAY ==
[2020-12-28 16:25] VITALS: BMI 29.5
[2020-12-29] VITALS (8 sets, daily range): BP systolic 111–144; BP diastolic 77–114; PULSE 71–96; RESP 11–24; TEMP 36.5; O2SAT 90–96
--- NOTE | 2020-12-29 07:00 | ECG_ITS ---
Measurements Intervals [place] Rate: 84 P: [place]: 0 QRS: 56 QRSD: 114 T: 39 QT: 360 QTc: 427 Interpretive Statements ATRIAL FIBRILLATION INTRAVENTRICULAR CONDUCTION DELAY EARLY PRECORDIAL R/S TRANSITION ABNORMAL ECG Electronically Signed On 12-29-2020 9:04:48 CDT by Alejandro Rick D.O.
[2020-12-29 09:04] LABS: Anion Gap 7 mmol/L (8-16); Blood Urea Nitrogen 19 mg/dL (9-20); Calcium 9.1 mg/dL (8.4-10.2); Carbon Dioxide 26 mmol/L (22-30); Chloride 109 mmol/L (98-107); Estimated CRCL calculation 58 ml/min; Estimated Glomerular Filt Rate 51; Glucose 92 mg/dL (75-110); Magnesium 1.8 mg/dL (1.6-2.3); Potassium 4.2 mmol/L (3.4-5.0); Sodium 142 mmol/L (137-145)
--- NOTE | 2020-12-29 09:23 | P.HPUP_ITS ---
History and Physical Update Update Date/Time: 12/29/20 09:23 History and Physical has been reviewed, including an updated exam of the patient. Patient was hospitalized for COVID pneumonia in November and was found to be in AFib RVR. He was treated with Cardizem and Eliquis. Echo showed EF 55- 60%, biatrial enlargement, some right ventricular enlargement, RVSP of 37 mmHg. He was seen in our office 12/13/2020 still in AFib. He has been tired and having no energy. He is here for elective electrical cardioversion. He has not missed any doses of Eliquis. There are NO changes in the patient's condition. Risks, benefits, and alternatives have been discussed and questions answered. Risks include risks of sedation with breathing problems, small but present risk of cardioembolic stroke, etc.. Patient agrees to proceed with procedure.
--- NOTE | 2020-12-29 09:24 | WPDMODSED ---
Moderate Sedation Note-Pt Data Patient Data Diagnosis: COVID pneumonia November 2020 associated with new onset AFib RVR. Treated with Eliquis and Cardizem. Remains in atrial fibrillation, complaining of 50 and lack of energy. Patient is here for elective electrical cardioversion. Has not missed any doses of Eliquis. Present Complaint: Atrial fibrillation Procedure to be performed/Plan: Conscious sedation Elective electrical cardioversion Allergies Allergy/AdvReac Type Severity Reaction Status Date / Time No Known Allergies Allergy Verified 12/28/20 16:27 Home Medications Medication Instructions Recorded Confirmed Type cholecalciferol (vitamin D3) 50 2,000 unit PO DAILY 07/07/19 12/28/20 History mcg (2,000 unit) tablet omega-3 fatty acids 1,000 mg 2,400 mg PO DAILY cap 12/07/19 12/28/20 History capsule syringe (disposable) 1 mL #20 each 01/20/20 12/28/20 Rx testosterone cypionate 200 mg/mL 150 mg IM WEEKLY #10 ml 06/16/20 12/28/20 Rx intramuscular oil apixaban [Eliquis] 5 mg PO Q12HR 30 Days #60 tablet 11/24/20 12/28/20 Rx diltiazem HCl 60 mg PO Q8HR 30 Days #90 tablet 11/24/20 12/28/20 Rx pravastatin 20 mg tablet 20 mg PO DAILY #90 tablet 12/19/20 12/28/20 Rx losartan 50 mg PO DAILY 12/28/20 12/28/20 History Current Medications: Active Medications Sodium Chloride (Normal Saline Iv) 500 mls @ 30 mls/hr IV CONT .[id number] BERTA Sedation/Anesthesia: No previous sedation/anesthesia problems (including family history). [facility] Past Medical History Medical History Atrial fibrillation 11/2020 associated with COVID-19 pneumonia Benign prostatic hyperplasia CKD (chronic kidney disease), stage III Due to polycystic kidney disease? 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 Monroy. Surgical History Surgical History No history of previous surgery Family History Family History Father Acute myocardial infarction, Onset Age: 67 of [place] Mother Hypothyroidism Sibling Brain tumor Hypothyroidism Social History Social History Social History: Surrogate decision maker: Mamta Elias, . Code status: Full code. 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 Has children. Smoking packs per day: 2 Smoking cigarettes per day: 40.0 Years smoked: 15 Smoking pack-years: 30.00 Smoking status: Former smoker Tobacco type: cigarettes Smoking end date: 08/05/94 Alcohol intake: current Substance use: never Additional living arrangements comments: The patient lives in [place] with his . Additional occupation/education comments: Works for [employer]. Gender identity (if verbalized by the patient): Male Spiritual care concerns: No Mod Sed Physical Exam Physical Exam Pre Procedural Exam: Normal: Appearance, Eyes, Ears, Nose, Neck, Throat, Airway, Lungs, Heart Size, Heart Rate, Neuro Exam, Abdomen, Liver, Extremities and Skin and Variation: Heart Rhythm (Irregular) Hours since solid foods: 12 Hours since liquid intake: 12 Internal Medicine - PN: Obj Da Vital Signs Vital Signs: Vital Signs - 24 hr 12/29/20 08:35 Temperature 97.7 F Pulse Rate 92 Respiratory Rate 24 H Blood Pressure 141/92 H Pulse Oximetry 96 Meds/Results Medications: Active Medications Generic Name Dose Route Start Last Admin Trade Name Freq PRN Reason Stop Dose Admin Sodium Chloride 500 mls @ 30 mls/hr 12/29/20 07:00 Normal Saline Iv IV CONT .[id number] BERTA Labs CBC & Chem 7: 12/29/20 08:38 Labs: Laboratory Results - last 24 hr 12/29/20 08:38 Sodium 142 Potassium 4.2 Chlori
--- NOTE | 2020-12-29 10:05 | PM.OP ---
Procedure Note - Brief Procedure Note - Brief Date of procedure: 12/29/20 Pre-op diagnosis: a-fib Description of procedure: Successful cardioversion to sinus rhythm Surgeon: Vanessa Long MD
--- NOTE | 2020-12-29 10:06 | PM.PROC ---
Procedure Note - Detailed Date of procedure: 12/29/20 Pre-op diagnosis: a-fib Post-op diagnosis: same Procedure performed: Conscious sedation Elective electrical cardioversion Description of procedure: Conscious sedation: Assessment: The patient has no history of anesthesia problems. The patient's oropharynx is clear. The patient was deemed to be a good candidate for conscious sedation. The patient had continuous hemodynamic monitoring during the procedure. Start time: 953 Completion time: 959 Total conscious sedation time: 6 minutes Medications: Versed 4 mg, fentanyl 100 mcg IV push Trained observer: Luther Mercado RN Outcome: The patient tolerated the procedure well with no complications. Cardioversion: After informed consent and the above conscious sedation, the patient underwent elective electrical synchronized cardioversion with 150 joules of biphasic energy and converted to normal sinus rhythm, rate 70's. There were no complications. Anesthesia: other (Conscious sedation) Surgeon: Vanessa Long MD Complications: No immediate complications Condition: stable Disposition: observation Findings: Will discharge patient on same medications. Have him follow up in 1 week for an EKG and a 30 day monitor as he is interested in stopping the Eliquis if he has no recurrent AFib. Follow-up in the office in 6 weeks.
--- NOTE | 2020-12-29 10:08 | ECG_ITS ---
Measurements Intervals [place] Rate: 73 P: 14 OR: 181 QRS: 40 QRSD: 118 T: 12 QT: 382 QTc: 423 Interpretive Statements SINUS RHYTHM POSSIBLE LEFT ATRIAL ENLARGEMENT INCOMPLETE RIGHT BUNDLE BRANCH BLOCK BORDERLINE ECG Electronically Signed On 12-29-2020 10:16:43 CDT by Alejandro Rick D.O.
== END 2020-12-29 11:40 | disposition home or self-care (01) ==
PROVIDERS: PCP Internal Medicine; Visit Provider Internal Medicine Cardiovascular Disease
PROC: 5A2204Z Restoration of Cardiac Rhythm, Single (ICD-10-PCS; principal; 2020-12-29 09:00)
DX: I48.91 Unspecified atrial fibrillation (principal); E78.5 Hyperlipidemia, unspecified; I12.9 Hypertensive chronic kidney disease with stage 1 through stage 4 chronic kidney disease, or unspecified chronic kidney disease; N18.9 Chronic kidney disease, unspecified; Z86.16 Personal history of COVID-19; N40.0 Benign prostatic hyperplasia without lower urinary tract symptoms; Q61.3 Polycystic kidney, unspecified; Z79.01 Long term (current) use of anticoagulants
CPT/HCPCS: 36415; 80048; 83735; 92960; 93005; J2250; J3010; J7030

== ENCOUNTER 2021-01-26 15:34 | Outpatient (CLI) | payer OTHER, MEDICARE, SELFPAY ==
--- NOTE | ~2021-01-26 | XR_ITS ---
EXAMINATION: XR chest 2V DATE: 01/26/2021 15:53 INDICATION: COVID-19 pneumonia. Atrial fibrillation. TECHNIQUE: Frontal and lateral views of the chest were obtained on 3 radiographs. COMPARISON: Chest single view 11/21/2020 FINDINGS: The chest demonstrates clear lungs without pneumonia, pleural effusion, or pneumothorax. Th e heart size is normal. IMPRESSION: 1. No acute cardiopulmonary disease. Reviewed, dictated and finalized at location A.
== END 2021-01-26 15:35 | disposition home or self-care (01) ==
PROVIDERS: PCP Internal Medicine; Visit Provider Clinical Nurse Specialist
DX: U07.1 COVID-19 (principal); J12.82 Pneumonia due to coronavirus disease 2019
CPT/HCPCS: 71046

== ENCOUNTER 2021-05-02 10:19 | Emergency (ER) | payer MEDICARE, OTHER, SELFPAY ==
--- NOTE | 2021-05-02 11:07 | ED.MALEGU ---
HPI - Male Genitourinary General Chief complaint: Urogenital-Male Stated complaint: Unable to urinate Time Seen by Provider: 05/02/21 11:04 Source: patient Mode of arrival: ambulatory Limitations: no limitations History of Present Illness HPI Narrative: Patient is a 65-year-old male with a history of hypertension, hyperlipidemia, partial nephrectomy, who presents for evaluation of difficulty with urination. Patient has been unable to urinate since last night around midnight. Patient states that he was having a few alcoholic beverages with friends overnight, otherwise does have 1 previous history of this approximately 6 years ago. Patient states he also had an episode of urinary retention occur after his recent partial nephrectomy. No history of kidney failure but he does have a history of chronic kidney disease. No dysuria, hematuria prior to this. No fever or chills. Patient reports abdominal distention and discomfort. Patient follows with Dr. Sharla Leal at [facility], urology. Related Data Home Medications Medication Instructions Recorded Confirmed cholecalciferol (vitamin D3) 50 2,000 unit PO DAILY 07/07/19 04/13/21 mcg (2,000 unit) tablet omega-3 fatty acids 1,000 mg 2,400 mg PO DAILY cap 12/07/19 04/13/21 capsule Allergies Allergy/AdvReac Type Severity Reaction Status Date / Time No Known Allergies Allergy Verified 12/28/20 16:27 Review of Systems Review of Systems: CONSTITUTIONAL: Denies fever CARDIOVASCULAR: Denies chest pain RESPIRATORY: Denies cough or dyspnea. GASTROINTESTINAL: Reports abdominal distention, reports bladder fullness : Reports inability to urinate SKIN: Denies rash MUSCULOSKELETAL: Denies back pain NEUROLOGIC: Denies headache [facility] Past Medical History Medical History Atrial fibrillation 11/2020 associated with COVID-19 pneumonia Benign prostatic hyperplasia CKD (chronic kidney disease), stage III Due to polycystic kidney disease? COVID-19 Hyperlipidemia Hypertension 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 Renal cyst Being followed by Dr. Monroy. Surgical History Surgical History No history of previous surgery Family History Family History Father Acute myocardial infarction, Onset Age: 67 of [place] Mother Hypothyroidism Sibling Brain tumor Hypothyroidism Social History Social History Social History: Surrogate decision maker: Mamta Elias, . Code status: Full code. 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 Has children. Smoking packs per day: 2 Smoking cigarettes per day: 40.0 Years smoked: 15 Smoking pack-years: 30.00 Smoking status: Former smoker Tobacco type: cigarettes Smoking end date: 08/05/94 Alcohol intake: current Alcohol use details: occasional Substance use: never Additional living arrangements comments: The patient lives in [place] with his . Additional occupation/education comments: Works for [employer]. Gender identity (if verbalized by the patient): Male Spiritual care concerns: No Exam Narrative: GENERAL: Awake, alert, conversant, uncomfortable appearing HEAD: Normocephalic, atraumatic. EYES: PERRLA and EOMI. ENT: Nares clear, no rhinorrhea or epistaxis. Mucous membranes moist. NECK: Supple. CHEST: No respiratory distress, breathing even and non labored HEART: Regular rate, sinus rhythm ABDOMEN:REports distension, reports difficulty with urination EXTREMITIES: Normal range of motion. No edema. SKIN: Warm, dry, no rash. NEURO:No focal deficits. Alert and oriented x3 Course Vital Signs Vital signs: Vital Signs Temperature 36.9 C 05/02/21 11:31 Pulse Rate
[2021-05-02 11:31] VITALS: BP 168/103; PULSE 70; RESP 16; TEMP 36.9; O2SAT 99
[2021-05-02 11:50] LABS: Basophils Percent Auto 0.1 % (0.2-1.2); Eosinophils Percent Auto 0.1 % (0-4.4); Hematocrit 44.9 % (42.0-52.0); Hemoglobin 15.3 g/dL (14.0-18.0); Immature Granulocyte Absolute 0.04 K/mm3 (0.00-0.031); Immature Granulocyte Percent A 0.4 % (0-0.5); Lymphocytes Absolute Auto 0.86 K/mm3 (0.9-3.2); Mean Corpuscular HGB Conc 34.1 g/dl (32-36); Mean Corpuscular Hemoglobin 31.4 pg (26-34); Mean Corpuscular Volume 92.2 fl (80-100); Mean Platelet Volume 9.5 fl (7.4-10.4); Monocytes Absolute Auto 0.4 K/mm3 (0.1-0.6); Monocytes Percent Auto 4.2 % (2.6-8.5); Neutrophils Absolute Auto 8.2 K/mm3 (1.3-6.7); Neutrophils Percent Auto 86.2 % (45.5-73.1); Platelet Count Result 190 k/mm3 (150-375); Red Blood Count 4.87 M/mm3 (4.6-6.20); Red Cell Distribution Width 16.2 % (11.5-14.5); White Blood Count 9.6 K/mm3 (4.5-10.0)
[2021-05-02 11:59] LABS: Anion Gap 15 mmol/L (8-16); Blood Urea Nitrogen 25 mg/dL (9-20); Carbon Dioxide 21 mmol/L (22-30); Chloride 106 mmol/L (98-107); Estimated CRCL calculation 41 ml/min; Estimated Glomerular Filt Rate 34; Glucose 122 mg/dL (65-110); Potassium 4.7 mmol/L (3.4-5.0); Sodium 142 mmol/L (137-145)
[2021-05-02 12:04] LABS: Add Urine Microscopic? YES; Appearance Urine Cloudy (Clear); Bacteria Urine Trace /hpf; Bilirubin Urine Negative (Negative); Blood Urine 3+ (Negative); Color Urine Yellow (Yellow); Glucose Urine UA Negative (Negative); Ketones Urine Negative (Negative); Leukocyte Esterase Ur Negative LEU/UL (Negative); Nitrate Urine Negative (Negative); Protein Urine 2+ mg/dL (Negative); RBC Urine >75 /hpf (0-2); Urobilinogen Urine Negative mg/dL (<2.0)
--- NOTE | 2021-05-02 13:30 | PC.NURSE ---
Leg bag attached. Patient had total of 2200mL output.
[2021-05-02 13:38] VITALS: BP 159/86; PULSE 79; RESP 18; O2SAT 98
== END 2021-05-02 13:44 | disposition home or self-care (01) ==
PROVIDERS: Emergency Provider Emergency Medicine; PCP Internal Medicine
DX: R33.9 Retention of urine, unspecified (principal); E78.5 Hyperlipidemia, unspecified; I48.91 Unspecified atrial fibrillation; I12.9 Hypertensive chronic kidney disease with stage 1 through stage 4 chronic kidney disease, or unspecified chronic kidney disease; N18.30 Chronic kidney disease, stage 3 unspecified; N40.0 Benign prostatic hyperplasia without lower urinary tract symptoms; Z86.16 Personal history of COVID-19; Z90.5 Acquired absence of kidney; Z87.891 Personal history of nicotine dependence
CPT/HCPCS: 36415; 51702; 80048; 81001; 85025; 99283

== ENCOUNTER → 2022-10-25 09:13 | Outpatient (CLI) | payer MEDICARE, SELFPAY ==
--- NOTE | ~2022-10-25 | XR_ITS ---
Clinical Indication: Shortness of breath PA and lateral views of the chest: Comparison: 01/26/2021 Findings: The lungs are clear, without evidence of focal consolidation or pleural effusion. Cardiome diastinal silhouette is within normal limits. Bones and soft tissues are unremarkable. Impression: Normal chest. Reviewed, dictated and finalized at location . Impression: Normal chest.
== END ==
PROVIDERS: PCP Internal Medicine; Visit Provider Internal Medicine
DX: R06.02 Shortness of breath (principal)
CPT/HCPCS: 71046

== ENCOUNTER 2022-11-09 08:13 | Outpatient (CLI) | payer MEDICARE, SELFPAY ==
--- NOTE | 2022-11-09 14:10 | WPDPFTINT ---
PFT Procedure Performed PFT Procedure Performed Plethysmography (Lung Vol) Diffusing Cap (DLCO) Flow Vol Loop Spirometry w/o Bronchodil PFT Interpretation This is a pulmonary function test with spirometry, plethysmography and diffusing capacity. The test was performed and results interpreted in accordance with the 2019 and 2005 ATS/ERS Task Force guidelines respectively using the Global Lung Function Initiative-2012 reference equations. Patient demonstrated good effort and cooperation. Reproducibility criteria were met. The quality of the spirometry maneuver was Grade B. Findings: Spirometry: The contour the inspiratory and expiratory flow tracing are normal. The FVC is 5.34 L, 103% predicted. The FEV1 is 3.81 L, 98% predicted. The FEV1: FVC ratio 71%. Plethysmography: The total lung capacity is 8.21 L, 102% predicted. The functional residual capacity is 3.70 L, 86% predicted. The residual volume is 2.64 L, 99% predicted. Diffusing capacity: The diffusing capacity unadjusted for hemoglobin and carboxyhemoglobin is 28.0, 97% predicted. The diffusing capacity adjusted for alveolar volume is 4.60, 123% predicted. Impression: The spirometry is normal without evidence of an obstructive abnormality. The lung volumes are normal. The diffusing capacity is normal. There are no prior studies for comparison
== END 2022-11-09 08:14 | disposition home or self-care (01) ==
LOC: ANHPFT 08:14
PROVIDERS: PCP Internal Medicine; Visit Provider Internal Medicine
DX: R06.09 Other forms of dyspnea (principal)
CPT/HCPCS: 94375; 94726; 94729

== ENCOUNTER 2023-01-25 10:03 | Outpatient (CLI) | payer MEDICARE, SELFPAY ==
[2023-01-25 19:03] LABS: Prostate Specific Antigen 6.1 ng/mL (< OR = 4.0)
== END 2023-01-25 10:04 | disposition home or self-care (01) ==
LOC: ANHGOSHLAB 10:06
PROVIDERS: PCP Internal Medicine; Visit Provider Nurse Practitioner
DX: R97.20 Elevated prostate specific antigen [PSA] (principal); Z12.5 Encounter for screening for malignant neoplasm of prostate
CPT/HCPCS: 36415; 84153; G0103

== ENCOUNTER → 2023-05-09 11:04 | Outpatient (CLI) | payer MEDICARE, SELFPAY ==
--- NOTE | ~2023-05-09 | XR_ITS ---
Lumbosacral Spine: AP and lateral views Clinical History: Pain Findings: The normal lordotic curve is maintained. No fracture or sublocation. There is advanced dege nerative disc narrowing at L3-L4 and L4-L5. There is mild to moderate facet arthropathy throughout th e lumbar spine. The sacroiliac joints are normally outlined. Impression: [id number] degenerative spondylosis, as above. Reviewed, dictated and finalized at location M. Impression: [id number] degenerative spondylosis, as above.
== END ==
PROVIDERS: PCP Clinical Nurse Specialist; Visit Provider Clinical Nurse Specialist
DX: M47.896 Other spondylosis, lumbar region (principal)
CPT/HCPCS: 72100

== ENCOUNTER 2023-05-23 06:40 | Outpatient (CLI) | payer MEDICARE, SELFPAY ==
--- NOTE | ~2023-05-23 | MR_ITS ---
MRI of the lumbar spine Clinical History: Back pain Technique: Axial T2-weighted images, and sagittal T1-weighted, T2-weighted, and T2 fat-sat images wer e acquired. Findings: No fracture seen in the lumbar spine. There is minimal grade 1 retrolisthesis of L3 over L4 . No suspicious bone marrow signal abnormality seen. At L1-L2, there is no significant disc bulge or herniation. There is mild facet arthropathy. No centr al canal stenosis or neural foraminal narrowing. At L2-L3, there is disc bulge and moderate to advanced facet arthropathy. No enid central canal sten osis. Bilateral neural foramina are preserved. At L3-L4, there is advanced degenerative disc narrowing. There is disc bulge and moderate facet arthr opathy. No central canal stenosis. There is mild to moderate left neural foraminal narrowing, and mod erate right neural foraminal narrowing. At L4-L5, there is advanced degenerative disc narrowing. There is mild disc bulge with advanced facet arthropathy. No central canal stenosis. There is moderate to severe bilateral neural foraminal narro wing. At L5-S1, there is disc bulge and facet arthropathy. No enid central canal stenosis. There is advanc ed bilateral neural foraminal narrowing. Paravertebral soft tissues are unremarkable. Impression: Moderate to advanced degenerative spondylosis, as above, especially the lower lumbar spine. Minimal grade 1 retrolisthesis of L3 over L4. Reviewed, dictated and finalized at [facility]. Impression: Moderate to advanced degenerative spondylosis, as above, especially the lower l umbar spine. Minimal grade 1 retrolisthesis of L3 over L4.
== END 2023-05-23 06:41 | disposition home or self-care (01) ==
PROVIDERS: PCP Internal Medicine; Visit Provider Clinical Nurse Specialist
DX: M43.06 Spondylolysis, lumbar region (principal)
CPT/HCPCS: 72148

== ENCOUNTER → 2023-08-07 09:10 | Outpatient (CLI) | payer MEDICARE, SELFPAY ==
--- NOTE | ~2023-08-07 | US_ITS ---
EXAMINATION: US renal BI DATE: 08/07/2023 09:29 INDICATION: Elevated creatinine TECHNIQUE: Multiple ultrasound grayscale images of the kidneys were obtained. COMPARISON: Ultrasound dated 11/19/2020, CT dated 11/20/2020 and MRI dated 12/13/2020. FINDINGS: The right kidney measures 14.5 x 6.2 x 6.9 cm. The left kidney measures 13.0 x 6.5 x 6.0 cm. Again se en are multiple bilateral anechoic parenchymal and parapelvic cysts. The largest on the right measure s 9.7 x 5.1 x 4.7 cm with a few thin internal septations. On one of the images there appears be a 12 mm nodular hypoechoic component within this cyst. The largest cyst on the left measures 3.8 cm. Adjac ent to this cyst at the lower pole of the left kidney there is a 3.0 cm hypoechoic mass which appears to correspond in size and location to the enhancing lesion identified on prior CT and MRI which be c onsistent with renal cell carcinoma. There is no hydronephrosis in either kidney. No stones identifi ed. The bladder is normal with bilateral ureteral jets visualized on color Doppler. Prostatomegaly me asuring 6.7 x 5.9 x 5.7 cm. IMPRESSION: 1. Multiple bilateral renal cysts with suggestion of a solid nodular component to a 9.7 cm complex c ystic right renal lesion which raises concern for neoplasm. Previous cystic lesion appeared multilocu lated with thin internal septations but without and evident solid nodular soft tissue component and w ould recommend repeat pre and postcontrast MRI or CT. 2. 3.0 cm hypoechoic lesion at the lower pole of the left kidney which appears to correspond to the e nhancing mass identified on prior imaging consistent with renal cell carcinoma. 3. Prostatomegaly. Reviewed, dictated and finalized at location A. [employer] IMPRESSION: 1. Multiple bilateral renal cysts with suggestion of a solid nodular component to a 9.7 cm complex cystic right renal lesion which raises concern for neoplas m. Previous cystic lesion appeared multiloculated with thin internal septations but without and evident solid nodular soft tissue component and would recommen d repeat pre and postcontrast MRI or CT. 2. 3.0 cm hypoechoic lesion at the lower pole of the left kidney which appears to correspond to the enhancing mass identified on prior imaging consistent with renal cell carcinoma. 3. Prostatomegaly.
== END ==
PROVIDERS: PCP Internal Medicine Nephrology; Visit Provider Internal Medicine Nephrology
DX: R79.89 Other specified abnormal findings of blood chemistry (principal); N28.1 Cyst of kidney, acquired; N40.0 Benign prostatic hyperplasia without lower urinary tract symptoms
CPT/HCPCS: 76775

== ENCOUNTER 2023-08-27 09:00 | Outpatient (RCR) | payer MEDICARE, SELFPAY ==
--- NOTE | 2023-07-25 10:47 | OPREHPOC ---
Outpatient Therapy Plan of Care This is a Multidisciplinary Plan of Care that may contain components documented by all disciplines (PT, OT, and ST.) PT Problem 1 PT Problem #1 Knowledge Deficit PT Goal 1 Goal Pt to be IND with issued HEP Target Visit 8 PT Problem 2 PT Problem #2 Pain PT Goal 1 Goal Pt to report leg pain no greater than 4/10 in the last week. Target Visit 8 PT Goal 2 Goal Pt to report 75% improvement in overall symptoms. Target Visit 8 PT Problem 3 PT Problem #3 Impaired Balance PT Goal 1 Goal Pt to demonstrates a 50/56 on the dietrich balance scale Target Visit 8 PT Problem 4 PT Problem #4 Impaired Gait PT Goal 1 Goal Pt to report being able to walk for 10 mins without an increase in pain Target Visit 8 PT Problem 5 PT Problem #5 Impaired Functional Mobil PT Goal 1 Goal Pt to be able to lift and carry 20lb from ground level without an increase in pain. Target Visit 8
--- NOTE | 2023-07-25 10:47 | PTOPEVAL1 ---
Assessment and note entered by Kinga Daniels, PT, DPT Evaluation Information Assessment Status Evaluation Diagnosis spinal stenosis Onset 4-5 years Subjective Information Pt states he has trouble with his legs, he states they are heavy and it is hard to walk. He reports a history of back issues that might be related to this. Pt states he can stand/walk for an hour if he has to, but his pain and weakness starts as soon as he starts up. He gets a numbing sensation that goes down to his leg into his ankles. He declines any pain sitting and laying down, he reports 7-8/10 pain initially upon standing. Reported Pain Level Pain Score 0: Self Report Assessment PT Clinical Summary David presents to therapy today for his initial evaluation with a diagnosis of lumbar spinal stenosis. Today he demonstrates deficits in his active lumbar ROM, good LE ROM, and good LE strength. He ambulates with a steppage pattern and reports decreased standing and walking tolerance. Skilled therapy services are indicated to improve lumbar ROM, improve body awareness, lifting mechanics, and to progress towards a return to PLOF. Plan of Care Interventions Electrical Stimulation,Gait Training,Hot Pack/Cold Pack,Manual Therapy,Mechanical Traction,Neuro Re- education,Patient/Caregiver Educati,Therapeutic Activities,Therapeutic Exercise PT Services Indicated Yes Treatment Frequency and 2x/wk for 8 visits Duration These treatments will address the objective and functional deficits as defined above. The patient will be advanced safely and appropriately in order for the patient to progress towards his/her prior level of function. Additional exercises will be introduced and as well as a comprehensive home exercise program upon discharge, if needed, ?to ensure carryover of functional gains achieved in the clinic. This treatment plan has been reviewed and agreement upon by the patient.
--- NOTE | 2023-08-27 09:39 | PTOPDC ---
Assessment and note entered by Kinga Daniels, PT, DPT Evaluation Information Assessment Status discharge Diagnosis spinal stenosis Onset 4-5 years Subjective Information Pt states overall his legs are feeling about the same. He states it still feels like his legs are heavy. He reports good compliance with his HEP and states he does feel a little bit better once he does them but still not normal. Reported Pain Level Pain Score 0: Self Report Assessment PT Clinical Summary David presents to therapy today for his progress report following 8 visits of skilled therapy to treat his diagnosis of lumbar spinal stenosis. Today he demonstrates improve lumbar ROM and improved pain reports. He continues to have reports of heaviness in his legs justo. He would like to be discharged at this time and follow up with his referring provider.
== END 2023-08-27 11:13 | disposition home or self-care (01) ==
LOC: ANHGOSHPT 09:00
PROVIDERS: PCP Internal Medicine; Visit Provider Anesthesiology Pain Medicine
DX: M48.062 Spinal stenosis, lumbar region with neurogenic claudication (principal); M47.817 Spondylosis without myelopathy or radiculopathy, lumbosacral region; M54.9 Dorsalgia, unspecified; M54.51 Vertebrogenic low back pain; G89.29 Other chronic pain
CPT/HCPCS: 97012; 97014; 97110; 97112; 97161; 97530; G0283

== ENCOUNTER 2023-10-01 11:10 | Emergency (ER) | payer MEDICARE, SELFPAY ==
[2023-10-01 11:13] VITALS: BP 129/84; PULSE 70; RESP 20; TEMP 36.2; O2SAT 98
--- NOTE | 2023-10-01 11:44 | PC.NURSE ---
1130- Pt approached desk and states he was able to get outpatient CT. Pt educated if wanting to return for evaluation or if symptoms worsen to return for evaluation.
== END 2023-10-01 11:30 | disposition left against medical advice (07) ==
PROVIDERS: PCP Internal Medicine
DX: R10.32 Left lower quadrant pain (principal)
CPT/HCPCS: 99199

== ENCOUNTER → 2023-10-01 11:40 | Outpatient (CLI) | payer MEDICARE, SELFPAY ==
--- NOTE | ~2023-10-01 | CT_ITS ---
EXAMINATION: CT abdomen pelvis wo con DATE: 10/01/2023 11:53 INDICATION: Left lower quadrant abdominal pain. TECHNIQUE: Computed tomography (CT) of the abdomen and pelvis was performed without intravenous contr ast. Automated exposure control and iterative reconstruction technique were employed. The dose-length product was 1213.83 mGy-cm. COMPARISON: CT abdomen and pelvis 11/20/2020 FINDINGS: The visualized portions of the lung bases demonstrate mild atelectasis. Calcified pulmonary nodules and calcified hilar lymph nodes are consistent with old granulomatous disease. No pleural ef fusion. The heart size is normal. There are coronary artery calcifications. No pericardial effusion. The liver, gallbladder, spleen, pancreas, and adrenal glands are normal. There are changes of partial left nephrectomy. There are cysts in the kidneys measuring up to 9.5 cm on the right. There are hemo rrhagic cysts in right kidney measuring up to 2.0 cm. The prostate is severely enlarged. There are br achytherapy seeds in the prostate. There are scattered diverticula in the colon. There is fat strandi ng around a diverticulum of sigmoid colon, consistent with diverticulitis. The appendix is normal. Th ere are no pathologically enlarged lymph nodes. There is no free intraperitoneal fluid. There is a ri ght inguinal hernia containing fat. There is a total right hip arthroplasty. There is severe left hip osteoarthritis. There is severe lumbar spondylosis. IMPRESSION: 1. Sigmoid diverticulitis. No perforation or abscess. Reviewed, dictated and finalized at location A. FOLDER
== END ==
PROVIDERS: PCP Internal Medicine; Visit Provider Clinical Nurse Specialist
DX: K57.32 Diverticulitis of large intestine without perforation or abscess without bleeding (principal)
CPT/HCPCS: 74176

== ENCOUNTER 2023-10-22 07:36 | Day surgery (SDC) | payer MEDICARE, SELFPAY ==
--- NOTE | ~2023-10-22 | XR_ITS ---
EXAMINATION: XR fluoroscopy no charge DATE: 10/22/2023 9:45 CDT INDICATION: ELENA L4-5,L5-S1 TRANFORAMINAL INJ . TECHNIQUE: 9 fluoroscopic images and multiple cine clips of the lumbar spine were obtained during elena ateral L4-5 and L5-S1 transforaminal injection, performed by Johny Prajapati MD. I was not present d uring the procedure. Fluoroscopy exposure time was 31.8 seconds. Air Kerma 18.02 mGy. COMPARISON: None FINDINGS/IMPRESSION: Fluoroscopic documentation of bilateral L4-5 and L5-1 transforaminal injection. Please refer to the o perative note for complete procedural details. Reviewed, dictated and finalized at location K.
[2023-10-22 08:19] VITALS: BP 137/94; PULSE 76; RESP 14; TEMP 36.8; O2SAT 98
--- NOTE | 2023-10-22 09:12 | PM.HPGS ---
History of Present Illness History of Present Illness Consent: Risks, benefits, and alternatives have been discussed and questions answered. Patient agrees to proceed with procedure. Chief complaint: Lumbar Spinal Stenosis Narrative: David Elias is a 68 year old male with chronic, recalcitrant and disabling bilateral lumbar radiculopathy secondary to lumbosacral spondylosis and stenosis with failure to respond to aggressive conservative measures including PT, oral and topical analgesics, opioid and nonopioid analgesics, rest, time and activity/behavioral modification over a greater than 3 months. who presents for bilateral L4-5, L5-S1 transforaminal epidural steroid injection under fluoroscopic guidance and with contrast control. Review of Systems Review of Systems: Patient denies any new infectious, allergic, cardiopulmonary, neurologic or constitutional symptoms or changes in activity tolerance or exercise capacity including new or progressive SOB/STEEL, peripheral edema, productive cough, dysuria, nausea/vomiting, diarrhea, weight change, fevers/chills/night sweats, new or progressive neurologic deficit, cognitive or mood changes since last seen, except as documented in the HPI. [facility] Past Medical History Medical History Acute dehydration Acute kidney injury Atrial fibrillation 11/2020 associated with COVID-19 pneumonia Benign prostatic hyperplasia CKD (chronic kidney disease), stage III COVID-19 History of renal cell carcinoma Hyperlipidemia Hypertension Lab test positive for detection of COVID-19 virus Pneumonia due to 2019 novel coronavirus 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 Renal cyst Being followed by Dr. Monroy. UTI (urinary tract infection) Surgical History Surgical History H/O left nephrectomy History of total right hip replacement History of urinary tract surgery Urolift 10/11/[address] Blake No history of previous surgery Family History Family History Father Acute myocardial infarction, Onset Age: 67 of [place] Mother Hypothyroidism Sibling Brain tumor Hypothyroidism Social History Social History Social History: Surrogate decision maker: Mamta Elias, . Code status: Full code. 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 Has children. Caffeine-tea Smoking packs per day: 2 Smoking cigarettes per day: 40.0 Years smoked: 15 Smoking pack-years: 30.00 Smoking status: Former smoker Tobacco type: cigarettes Smoking end date: 08/05/94 Alcohol intake: current Alcohol use details: socially Substance use: never Substance use type: does not use Lack of Transportation: No Lack of Food: Never True Current Housing: I Have Housing Concerned About Future Housing: No Difficulty Paying Gas/Electric Bills: No Difficulty Paying for Meds: No Currently Unemployed: No Education: Bachelor's Degree Difficulty w/ Childcare or Family Care: No Living arrangements: with family Additional living arrangements comments: The patient lives in [place] with his . Additional occupation/education comments: Works for [employer]. Gender identity (if verbalized by the patient): Male Spiritual care concerns: No Meds Home Medications and Allergies Home Medications Medication Instructions Recorded Confirmed Type aspirin 325 mg tablet 325 mg PO DAILY 10/16/21 10/22/23 History mecobalamin (vitamin B12) 5,000 5,000 mcg PO DAILY 10/16/21 10/22/23 History mcg lozenge sildenafil 50 mg tablet 50 - 100 mg PO DAILY PRN sexual 10/24/21 10/22/23 Rx activity #30 tabs ezetimibe 10 mg tablet 10 mg PO DAILY 10/25/22 10/22/23
--- NOTE | 2023-10-22 09:15 | WPDHPUPDATE1 ---
History and Physical Update Update Date/Time: 10/22/23 09:15 History and Physical has been reviewed, including an updated exam of the patient. There are NO changes in the patient's condition. Risks, benefits, and alternatives have been discussed and questions answered. Patient agrees to proceed with procedure.
--- NOTE | 2023-10-22 09:33 | W.PM.PROC2 ---
Procedure Note - Detailed Date of Procedure 10/22/23 Pre-op Diagnosis Lumbar Radiculopathy, Spinal Stenosis Post-op Diagnosis Same Procedure Performed Bilateral L4-5, L5-S1 transforaminal epidural steroid injection under fluoroscopic guidance with contrast control. Surgeon Johny Prajapati MD Anesthesia Local Description of Procedure INFORMED CONSENT: Risks, benefits and alternatives to the procedure were discussed in detail with the patient who expressed explicit understanding and consent to proceed. Patient was informed verbally and in written form regarding the risks associated with the procedure including the low risk of serious infection, bleeding/bruising, allergic reaction, nerve or organ injury, paralysis, procedural site pain or discomfort, worsening pain and/or mobility, failure to treat and/or disfigurement. The patient expressed explicit understanding and consent to proceed. All materials required for the procedure were available prior to procedure start. Site and side was marked prior to procedure and confirmed in the presence of the patient. PROCEDURE IN DETAIL: The patient was brought to the procedural suite and placed in the prone position. Patient was made comfortable with use of pillows under the head/chest, hips and ankles. Skin overlying the injection site was prepared broadly with ChloraPrep applicator and draped in a sterile manner. Aseptic technique was employed throughout. The endplates of the vertebral body at the site of interest were aligned in the AP view. Ipsilateral oblique angulation was utilized to better visualize the neuroforamen of interest. Local anesthesia was established by infiltration with approximately 5 mL of 2% lidocaine via a 1-1/2 inch 27-gauge needle. A 22-gauge 5.0 inch Britta (pencil point) spinal needle was advanced until the needle approached the 6 o'clock position on the pedicle just superior to the exiting nerve root. on the right at L4-5. Lateral view was utilized to confirm appropriate position of the needle tip within the superior and posterior portion of the respective foramen. In an AP view, 1 mL of Omnipaque 300 contrast medium was injected after negative aspiration for CSF, blood or other bodily fluid, showing appropriate neurogram without evidence of intravascular or intrathecal spread of contrast. Digital subtraction imaging was used with an additional 1ml of the same contrast medium to confirm absence of intravascular contrast spread. A 1mL solution containing 3 mg of betamethasone was injected after negative repeat aspiration. Appropriate spread of the injectate was confirmed with washout of previously injected contrast. No parasthesias were elicited. Needle was removed completely intact without difficulty. The same exact procedure was repeated for all remaining levels on the ipsilateral side, right L5-S1 neuroforamen, modified as necessary to accommodate for the new target location with identical findings and results and no evidence of complication. the same exact procedure was repeated in the exact same way for all remaining levels on the contralateral side, left L4-5, L5-S1 neural foramen, modified is necessary to accommodate for the new target location and contralateral position with identical findings and results with no evidence of complication Images were saved and documented in the patient chart. Patient's skin was cleaned and sterile bandage applied. The patient tolerated the procedure well. The patient was transported to the recovery area in stable condition where they were observed for an appropriate amount of time prior to discharge, without evidence of complication. The patient was instructed to avoid excessive activity for the next 48 hours, including climbing and frequent use of stairs. Showers only for 48 hours. They were instructed not to drive or operate heavy machinery for 24 hours. They are to monitor for severe headaches, fevers, chills, night sweats, erythema/swelling at th
[2023-10-22 09:50] VITALS: BP 155/76; PULSE 66; RESP 12; O2SAT 95
[2023-10-22] MEDS: BETAMETHASONE SODIUM PHOSPHATE PF INJ 6 MG/ML VIAL INFILTRATE (09:55)
[2023-10-22 09:59] VITALS: BP 152/78; PULSE 71; RESP 20; O2SAT 95
[2023-10-22 10:04] VITALS: BP 151/93; PULSE 69; RESP 20; O2SAT 100
[2023-10-22] MEDS: LIDOCAINE HCL 1% PF INJ 5 ML VIAL 2 ML XX (10:05)
== END 2023-10-22 10:20 | disposition home or self-care (01) ==
PROVIDERS: PCP Internal Medicine; Visit Provider Anesthesiology Pain Medicine
PROC: (CPT 64483; principal; 2023-10-22 09:00)
DX: M54.16 Radiculopathy, lumbar region (principal); M48.061 Spinal stenosis, lumbar region without neurogenic claudication
CPT/HCPCS: 64483; 64484; 99199

== ENCOUNTER 2024-02-25 10:23 | Day surgery (SDC) | payer MEDICARE, SELFPAY ==
[2024-02-19 12:53] VITALS: BMI 32.3
--- NOTE | ~2024-02-25 | XR_ITS ---
EXAMINATION: XR fluoroscopy no charge DATE: 02/25/2024 12:15 CDT INDICATION: ELENA INTERLAMINAR EPI STEROID INJ L4-5 . TECHNIQUE: 7 fluoroscopic images of the lumbar spine were obtained during bilateral interlaminar epid ural steroid injection at L4-5, performed by Johny Prajapati MD. I was not present during the proced ure. Fluoroscopy exposure time was 23.5 seconds. Air Kerma 14.12 mGy. COMPARISON: None FINDINGS/IMPRESSION: Fluoroscopic documentation of bilateral interlaminar epidural steroid injection at L4-5. Please refer to the operative note for complete procedural details . Reviewed, dictated and finalized at location K.
--- NOTE | 2024-02-25 06:08 | WPDHPUPDATE1 ---
History and Physical Update Update Date/Time: 02/25/24 06:08 History and Physical has been reviewed, including an updated exam of the patient. There are NO changes in the patient's condition. Risks, benefits, and alternatives have been discussed and questions answered. Patient agrees to proceed with procedure.
--- NOTE | 2024-02-25 06:09 | W.PM.PROC2 ---
Procedure Note - Detailed Date of Procedure 02/25/24 Pre-op Diagnosis lumbosacral radiculopathy, lumbosacral spinal stenosis Post-op Diagnosis Same Procedure Performed Bilateral Lumbosacral Transforaminal Epidural Steroid Injection under Fluoroscopic Guidance and with Contrast Control at L4-5, L5-S1. Surgeon Johny Prajapati MD Anesthesia Local Description of Procedure INFORMED CONSENT: Risks, benefits and alternatives to the procedure were discussed in detail with the patient who expressed explicit understanding and consent to proceed. Patient was informed verbally and in written form regarding the risks associated with the procedure including the low risk of serious infection, bleeding/bruising, allergic reaction, nerve or organ injury, paralysis, procedural site pain or discomfort, worsening pain and/or mobility, failure to treat and/or disfigurement. The patient expressed explicit understanding and consent to proceed. All materials required for the procedure were available prior to procedure start. Site and side was marked prior to procedure and confirmed in the presence of the patient. PROCEDURE IN DETAIL: The patient was brought to the procedural suite and placed in the prone position. Patient was made comfortable with use of pillows under the head/chest, hips and ankles. Skin overlying the injection site was prepared broadly with ChloraPrep applicator and draped in a sterile manner. Aseptic technique was employed throughout. The endplates of the vertebral body at the site of interest were aligned in the AP view. Ipsilateral oblique angulation was utilized to better visualize the neuroforamen of interest. Local anesthesia was established by infiltration with approximately 5 mL of 2% lidocaine via a 1-1/2 inch 27-gauge needle. A 22-gauge 3.5 inch Britta (pencil point) spinal needle was advanced until the needle approached the 6 o'clock position on the pedicle just superior to the exiting nerve root. on the right at L4-5. Lateral view was utilized to confirm appropriate position of the needle tip within the superior and posterior portion of the respective foramen. In an AP view, 1 mL of Omnipaque 300 contrast medium was injected after negative aspiration for CSF, blood or other bodily fluid, showing appropriate neurogram without evidence of intravascular or intrathecal spread of contrast. Digital subtraction imaging was used with an additional 1ml of the same contrast medium to confirm absence of intravascular contrast spread. A 1mL solution containing 3 mg of betamethasone was injected after negative repeat aspiration. Appropriate spread of the injectate was confirmed with washout of previously injected contrast. No parasthesias were elicited. Needle was removed completely intact without difficulty. The same exact procedure was repeated for all remaining levels on the ipsilateral side, right L5-S1 neuroforamen, modified as necessary to accommodate for the new target location with identical findings and results and no evidence of complication. The same exact procedure was then repeated for all remaining levels on the contralateral side, left L4-5, L5-S1 neural foramen, modified as necessary to accommodate for the new target location on the contralateral side with identical findings / results and no evidence of complication. Images were saved and documented in the patient chart. Patient's skin was cleaned and sterile bandage applied. The patient tolerated the procedure well. The patient was transported to the recovery area in stable condition where they were observed for an appropriate amount of time prior to discharge, without evidence of complication. The patient was instructed to avoid excessive activity for the next 48 hours, including climbing and frequent use of stairs. Showers only for 48 hours. They were instructed not to drive or operate heavy machinery for 24 hours. They are to monitor for severe headaches, fevers, chills, night sweats, erythema/sw
[2024-02-25 11:22] VITALS: BP 125/81; PULSE 59; RESP 16; TEMP 36.8; O2SAT 99
[2024-02-25 12:19] VITALS: BP 139/84; PULSE 62; RESP 16; O2SAT 97
[2024-02-25] MEDS: LIDOCAINE HCL 1% PF INJ 5 ML VIAL XX (12:24)
[2024-02-25 12:28] VITALS: BP 142/83; PULSE 64; RESP 16; O2SAT 97
[2024-02-25] MEDS: LIDOCAINE HCL 2% PF INJ 5 ML VIAL INFILTRATE (12:33)
[2024-02-25 12:35] VITALS: BP 128/81; PULSE 63; RESP 15; O2SAT 100
== END 2024-02-25 12:45 | disposition home or self-care (01) ==
PROVIDERS: PCP Internal Medicine; Visit Provider Anesthesiology Pain Medicine
PROC: (CPT 64483; principal; 2024-02-25 12:15)
DX: M54.17 Radiculopathy, lumbosacral region (principal); M48.061 Spinal stenosis, lumbar region without neurogenic claudication
CPT/HCPCS: 64483 ×2; 64484 ×2; 99199

== ENCOUNTER 2024-03-18 10:18 | Outpatient (CLI) | payer MEDICARE, SELFPAY ==
--- NOTE | ~2024-03-18 | XR_ITS ---
XR knee RT min 4V Ordering provider: ZOEY Greene History: . M25.569 - Pain in unspecified knee . Comparison: None. FINDINGS: BONES: No acute fracture or dislocation. JOINT SPACES: Narrowing of the lateral compartment. Marginal osteophytes in the patella. SOFT TISSUES: Normal. IMPRESSION: No acute osseous abnormality right knee. Moderate to severe osteoarthritic changes. Reviewed, dictated and finalized at location A.
--- NOTE | ~2024-03-18 | XR_ITS ---
XR knee LT min 4V 03/18/2024 10:42 Indication: Knee pain Procedure: 4 views left knee Comparison: No prior studies for comparison. Findings: There is mild tricompartment osteoarthritis. No acute fracture or traumatic malalignment. N o joint effusion. Impression: 1: Mild osteoarthritis of the left knee. Reviewed, dictated and finalized at location B. Impression: 1: Mild osteoarthritis of the left knee.
== END 2024-03-18 10:19 | disposition home or self-care (01) ==
LOC: ANHIMG 10:22
PROVIDERS: PCP Internal Medicine; Visit Provider Clinical Nurse Specialist
DX: M17.0 Bilateral primary osteoarthritis of knee (principal)
CPT/HCPCS: 73564

== ENCOUNTER 2024-04-13 00:36 | Day surgery (SDC) | payer MEDICARE, SELFPAY ==
[2024-04-13 07:52] VITALS: BP 144/99; PULSE 77; RESP 20; TEMP 36.2; O2SAT 100; BMI 31.3
[2024-04-13] MEDS: LACTATED RINGERS 1,000 ML 150 ML IV CONT (07:55)
--- NOTE | 2024-04-13 08:54 | WPDANESEPPF ---
Anes - Initial Pre Proc Eval Procedure: Operation Date: 04/13/24 09:00 Proposed Procedures p Colonoscopy - Rajinder Briones MD Date/Time: 04/13/24 08:54 Surgeon: Rajinder Briones MD Pre Op Diagnosis: Personal hx. colon polyps Patient Data Age: 68 Gender: M Height: 1.93 m Weight: 116.8 kg Last Vital Signs Temp 97.2 F L 04/13/24 07:52 Pulse 77 04/13/24 07:52 Resp 20 04/13/24 07:52 BP 144/99 H 04/13/24 07:52 Pulse Ox 100 04/13/24 07:52 O2 Del Method Room Air 04/13/24 07:52 Allergies Allergy/AdvReac Type Severity Reaction Status Date / Time Bbaulee-WIT-IwH Reductase AdvReac Muscle Pain Verified 04/13/24 07:50 Inhibitor Home Medications Medication Instructions Recorded Confirmed Type aspirin 325 mg tablet 325 mg PO DAILY 10/16/21 04/13/24 History mecobalamin (vitamin B12) 5,000 5,000 mcg PO DAILY 10/16/21 04/13/24 History mcg lozenge sildenafil 50 mg tablet 50 - 100 mg PO DAILY PRN sexual 10/24/21 04/13/24 Rx activity #30 tabs ezetimibe 10 mg tablet 10 mg PO DAILY 10/25/22 04/13/24 History hydrochlorothiazide 25 mg tablet 25 mg PO DAILY 01/25/23 04/13/24 History syringe (disposable) 1 mL (BD Bulk #20 ea 04/02/23 04/13/24 Rx Syringe Slip Tip) cholecalciferol (vitamin D3) 50 5,000 unit PO DAILY 05/16/23 04/13/24 History mcg (2,000 unit) tablet diltiazem HCl 180 mg 360 mg PO DAILY 05/16/23 04/13/24 History capsule,extended release 24 hr losartan 100 mg tablet 100 mg PO DAILY #90 tabs 11/11/23 04/13/24 Rx testosterone cypionate 200 mg/mL 150 mg (0.75 mL) IM WEEKLY #10 mL 11/18/23 04/13/24 Rx intramuscular oil (Depo-Testosterone) amlodipine 10 mg tablet 10 mg PO DAILY #30 tabs 12/12/23 04/13/24 Rx Patient hx anesthesia problems: none Family hx anesthesia problems: none Results Review: All pre-operative results and documents have been reviewed as part of the pre-operative evaluation. [facility] Past Medical History Medical History (Updated 03/17/24 @ 14:08 by CHANTEL Greene-C) Acute dehydration Acute kidney injury Atrial fibrillation 11/2020 associated with COVID-19 pneumonia Benign prostatic hyperplasia CKD (chronic kidney disease), stage III COVID-19 History of renal cell carcinoma Hyperlipidemia Hypertension Hypogonadism in male Lab test positive for detection of COVID-19 virus Pneumonia due to 2019 novel coronavirus 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 Renal cyst Being followed by Dr. Monroy. UTI (urinary tract infection) Surgical History Surgical History H/O left nephrectomy History of total right hip replacement History of urinary tract surgery Urolift 10/11/[address] Blake No history of previous surgery Family History Family History Father Acute myocardial infarction, Onset Age: 67 of [place] Mother Hypothyroidism Sibling Brain tumor Hypothyroidism Social History Social History (Updated 02/17/24 @ 08:19 by Emelyn Louis MA) Social History: Surrogate decision maker: Mamta Elias, . Code status: Full code. 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 Has children. Caffeine-tea Smoking packs per day: 2 Smoking cigarettes per day: 40.0 Years smoked: 15 Smoking pack-years: 30.00 Smoking status: Former smoker Tobacco type: cigarettes Second hand tobacco smoke exposure: Yes Smoking end date: 08/05/94 Alcohol intake: current Drinks per week: 12 Alcohol use details: social Substance use: never Substance use type: does not use Do You Feel Safe in your Home?: Yes Lack of Transportation: No Lack of Food: Never True Current Housing: I Have Housing Concerned About Future Housing: No Difficulty Paying Gas/Electric Bills: No Diff
--- NOTE | 2024-04-13 09:00 | PM.HPGS ---
History of Present Illness History of Present Illness Consent: Risks, benefits, and alternatives have been discussed and questions answered. Patient agrees to proceed with procedure. Chief complaint: Personal hx. colon polyps Narrative: David Elias is a 68 year old male with colon polyp in 2019 Review of Systems Review of Systems: All systems reviewed & are unremarkable except as noted in HPI and below PMFSH Past Medical History Medical History (Updated 03/17/24 @ 14:08 by ZOEY Greene) Acute dehydration Acute kidney injury Atrial fibrillation 11/2020 associated with COVID-19 pneumonia Benign prostatic hyperplasia CKD (chronic kidney disease), stage III COVID-19 History of renal cell carcinoma Hyperlipidemia Hypertension Hypogonadism in male Lab test positive for detection of COVID-19 virus Pneumonia due to 2019 novel coronavirus 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 Renal cyst Being followed by Dr. Monroy. UTI (urinary tract infection) Surgical History Surgical History (Reviewed 12/12/23 @ 08:58 by Betty Mccormick [facility]) H/O left nephrectomy History of total right hip replacement History of urinary tract surgery Urolift 10/11/[address] Blake No history of previous surgery Family History Family History (Reviewed 12/12/23 @ 08:58 by Betty Mccormick [facility]) Father Acute myocardial infarction, Onset Age: 67 of [place] Mother Hypothyroidism Sibling Brain tumor Hypothyroidism Social History Social History (Updated 02/17/24 @ 08:19 by Emelyn Louis MA) Social History: Surrogate decision maker: Mamta Elias, . Code status: Full code. 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 Has children. Caffeine-tea Smoking packs per day: 2 Smoking cigarettes per day: 40.0 Years smoked: 15 Smoking pack-years: 30.00 Smoking status: Former smoker Tobacco type: cigarettes Second hand tobacco smoke exposure: Yes Smoking end date: 08/05/94 Alcohol intake: current Drinks per week: 12 Alcohol use details: social Substance use: never Substance use type: does not use Do You Feel Safe in your Home?: Yes Lack of Transportation: No Lack of Food: Never True Current Housing: I Have Housing Concerned About Future Housing: No Difficulty Paying Gas/Electric Bills: No Difficulty Paying for Meds: No Currently Unemployed: No Education: Bachelor's Degree Difficulty w/ Childcare or Family Care: No Living arrangements: with family Additional living arrangements comments: The patient lives in [place] with his . Additional occupation/education comments: Works for [employer]. Gender identity (if verbalized by the patient): Male Spiritual care concerns: No Meds Home Medications and Allergies Home Medications Medication Instructions Recorded Confirmed Type aspirin 325 mg tablet 325 mg PO DAILY 10/16/21 04/13/24 History mecobalamin (vitamin B12) 5,000 5,000 mcg PO DAILY 10/16/21 04/13/24 History mcg lozenge sildenafil 50 mg tablet 50 - 100 mg PO DAILY PRN sexual 10/24/21 04/13/24 Rx activity #30 tabs ezetimibe 10 mg tablet 10 mg PO DAILY 10/25/22 04/13/24 History hydrochlorothiazide 25 mg tablet 25 mg PO DAILY 01/25/23 04/13/24 History syringe (disposable) 1 mL (BD Bulk #20 ea 04/02/23 04/13/24 Rx Syringe Slip Tip) cholecalciferol (vitamin D3) 50 5,000 unit PO DAILY 05/16/23 04/13/24 History mcg (2,000 unit) tablet diltiazem HCl 180 mg 360 mg PO DAILY 05/16/23 04/13/24 History capsule,extended release 24 hr losartan 100 mg tablet 100 mg PO DAILY #90 tabs 11/11/23 04/13/24 Rx testosterone cypionate 200 mg/mL 150 mg (0.75 mL) IM WEEKLY #10 mL 11/18/23 04/13/24 Rx intramuscular oil (Depo-Testosterone) amlodipine 10 mg tablet 10 mg PO DAILY #30 tabs 12/12/23 04/13/24 Rx Allergies Allergy/AdvReac Type Sev
[2024-04-13 09:22] VITALS: BP 114/79; PULSE 60; O2SAT 97
[2024-04-13 09:32] VITALS: BP 132/89; PULSE 63; O2SAT 99
[2024-04-13 09:42] VITALS: BP 141/96; PULSE 58; O2SAT 99
== END 2024-04-13 09:50 | disposition home or self-care (01) ==
PROVIDERS: PCP Internal Medicine; Referring Provider Clinical Nurse Specialist; Visit Provider Internal Medicine Gastroenterology
PROC: 0DJD8ZZ Inspection of Lower Intestinal Tract, Via Natural or Artificial Opening Endoscopic (ICD-10-PCS; CPT 45378; principal; 2024-04-13 09:00)
DX: Z12.11 Encounter for screening for malignant neoplasm of colon (principal); D12.3 Benign neoplasm of transverse colon; D12.4 Benign neoplasm of descending colon; K64.8 Other hemorrhoids; K57.30 Diverticulosis of large intestine without perforation or abscess without bleeding; I12.9 Hypertensive chronic kidney disease with stage 1 through stage 4 chronic kidney disease, or unspecified chronic kidney disease; N18.30 Chronic kidney disease, stage 3 unspecified; E29.1 Testicular hypofunction; I48.91 Unspecified atrial fibrillation; N40.0 Benign prostatic hyperplasia without lower urinary tract symptoms; E66.9 Obesity, unspecified; Z68.31 Body mass index [BMI] 31.0-31.9, adult; Z79.82 Long term (current) use of aspirin; Z98.890 Other specified postprocedural states; Z87.891 Personal history of nicotine dependence; Z85.528 Personal history of other malignant neoplasm of kidney; Z82.49 Family history of ischemic heart disease and other diseases of the circulatory system
CPT/HCPCS: 45380; 45385; 88305; J2704; J7120

== ENCOUNTER 2024-05-22 09:05 | Outpatient (CLI) | payer MEDICARE, SELFPAY ==
--- NOTE | ~2024-05-22 | MR_ITS ---
EXAMINATION: MR lumbar spine wo con DATE: 05/22/2024 09:37 INDICATION: Low back pain and lumbar radiculopathy TECHNIQUE: Magnetic resonance imaging (MRI) of the lumbar spine was performed without intravenous con trast. Sequences included sagittal T2-weighted FSE, sagittal T2-weighted FS FSE, sagittal T1-weighted FSE, and axial T2-weighted FSE. COMPARISON: Lumbar spine MR dated 05/23/[address] abdomen pelvis studies dated 02/29/2020 and 024 FINDINGS: 2 mm retrolisthesis L3 on L4 and 4 mm retrolisthesis L4 on L5. Chronic mild likely physiologic anteri or wedging at T11. Lumbar vertebral body heights are normal. Severe right-sided disc height loss at L 3-L4 and severe left-sided disc height loss at L4-L5 with associated mild fibrovascular and fibrofatt y Modic type I and II degenerative endplate changes. Moderate disc height loss and small Schmorl's no khoi at L5-S1 where there is additional moderate type I fibrofatty degenerative endplate change. Disc desiccation and mild disc height loss at L2-L3. There are Schmorl's nodes at the inferior endplate of T11 and at both sides of the T12-L1 disc space. T2 hyperintense, T1 isointense hemangioma at L2 whic h is evident on CT from 2019. Bone marrow signal is otherwise unremarkable with no pathologic marrow replacing process. The conus medullaris terminates at T12-L1. There is normal signal in the caudal sp inal cord. Bilateral T2 hyperintense renal cysts, the largest incompletely visualized on the right me asuring at least 7 cm. Paravertebral soft tissues are otherwise unremarkable. The following disc leve ls are specifically discussed: T12-L1: Disc is mildly bulging. There is moderate bilateral facet joint osteoarthritis. There is mild left neural foraminal stenosis. There is mild central canal stenosis. L1-L2: Disc is minimally bulging with central annular fissure. There is mild to moderate bilateral fa cet joint osteoarthritis. There is mild bilateral neural foraminal stenosis. There is mild central ca nal stenosis. L2-L3: Disc is bulging with annular fissure. There is severe bilateral facet joint osteoarthritis. Th ere is mild left and mild to moderate right neural foraminal stenosis. There is mild to moderate cent ral canal stenosis. L3-L4: Disc is bulging with annular fissure. There is moderate bilateral facet joint osteoarthritis. There is moderate right and mild to moderate left neural foraminal stenosis. There is mild central ca nal stenosis. L4-L5: Disc is bulging with annular fissure. There is severe bilateral facet joint osteoarthritis. Th ere is moderate bilateral, left greater than right neural foraminal stenosis. There is mild central c anal stenosis. L5-S1: Disc is bulging with annular fissure. There is severe bilateral facet joint osteoarthritis. Th ere is moderate bilateral neural foraminal stenosis. There is mild central canal stenosis. IMPRESSION: 1. No significant change in severe lumbar spondylosis. Reviewed, dictated and finalized at location A.
== END 2024-05-22 09:06 | disposition home or self-care (01) ==
LOC: GOSHIMG 09:10
PROVIDERS: Visit Provider Internal Medicine
DX: M47.816 Spondylosis without myelopathy or radiculopathy, lumbar region (principal); R97.20 Elevated prostate specific antigen [PSA]
CPT/HCPCS: 72148

== ENCOUNTER 2025-04-26 13:53 | Emergency (ER) | payer MEDICARE, SELFPAY ==
--- OUTSIDE RECORDS SUMMARY | 2008-01-27 09:53 | XMS_ITS | Continuity of Care Document ---
Author Organization [facility] Address [address] [facility] [address] [facility] [address] [place] [address] Phone Care Team Providers Care Shot Coat Tender Name Role Phone Tosha Rosas Unavailable Unavailable Procedures Procedure Date Eye Exam & Treatment Refraction Advance Directives Directive Yes / No Effective Date File Name No Information Encounters Encounter Description Practice Location Reason(s) For Visit Diagnoses Date Provider Providers Copied on Encounter [facility], [address] [place] [address] [facility] [address], [place], [place], [address], tel:[phone] [facility] No Information [address] [facility] , [address], [place], [address], [place]. tel:[phone] Family History Family Member Type Diagnosis Age At Onset No Information Payers Payer name Insurance type Covered libertarian ID Authoriza titraci(s) [employer] Plan CI [id number] Social History Type Description Quantity Date Captured [...]
--- OUTSIDE RECORDS SUMMARY | 2008-01-27 09:53 | XMS_ITS | Continuity of Care Document ---
Author Organization [facility] Address [address] [facility] [address] [facility] [address] [place] [address] Phone Care Team Providers Care Commercial Lines Assistant Name Role Phone Tosha Rosas Unavailable Unavailable Procedures Procedure Date Eye Exam & Treatment Refraction Advance Directives Directive Yes / No Effective Date File Name No Information Encounters Encounter Description Practice Location Reason(s) For Visit Diagnoses Date Provider Providers Copied on Encounter Located within [facility], [address] [place] [address] [facility] [address], [place], [place], [address], tel:[phone] [facility] No Information [address] [facility] , [address], [place], [address], [place]. tel:[phone] Family History Family Member Type Diagnosis Age At Onset No Information Payers Payer name Insurance type Covered alliance party ID Authoriza titraci(s) [employer] Plan [place] [id number] Social History Type Description Quantity Date Captured [...]
--- OUTSIDE RECORDS SUMMARY | 2024-08-13 08:30 | XMS_ITS | Continuity of Care Document ---
Author Organization [facility] Address [address] [place] [address] Phone Care Team Providers Care Relief Manager Name Role Phone Bronwyn DUPREEALLAN Agustín DE [...] Encounter Office/outpa tient visit,est, low [facility], [address], [id number], [place] tel:[phone] [facility] bilat knees (chief complaint) Pain in left kneePain in right kneeBilateral primary osteoarthriti s of knee 5 Bronwyn Randolhp. [address] [facility], [address], [id number], [place]. tel:[phone] Referring Provider: Agustín Nunez, [facility] [address], [place], [address]. tel:[phone] Office/outpa tient visit,est, [facility], [address], [id number], [place] tel:[phone] [facility] Left hip (chief complaint) Presence of left artificial hip jointPain in right kneePain in left kneeBilateral primary osteoarthriti s of knee 4 Barnhartmoe Randolph. [address] [facility], [address], [place], [place], [address], [place]. tel:[phone] Referring Provider: Agustín Barnhart Marya, [address] [facility] [address] [facility], [place], [address]. tel:[phone] [facility], [address] [facility] [address], [place], [place], [address], [place] tel:[phone] [facility] Left hip (chief complaint) Presence of left artificial hip jointPain in left hip 4 Bronwyn Randolph. [address] [facility], [address] [address], [place], [place], [address], [place]. tel:[phone] Referring Provider: Mayank West, [address] [facility] [address], [place], [address]. tel:[phone] [facility], [address] [address], [place], [place], [address], [place] tel:[phone] [facility] Presence of left artificial hip joint 4 Cedrick Shin . [address] [facility], [facility] [address], [place], [place], [address], [place]. tel:[phone] Office/outpa tient visit,est, mod [facility], [address] [facility] [address], [place], [place], [address], [place] tel:[phone] [facility] left hip (chief complaint) Pain in left hipIdiopathic aseptic necrosis of left femur 4 Cedrick Shin . [address] [facility], [facility] [address], [place], [place], [address], [place]. tel:[phone] Referring Provider: Kip Vega, [address] [facility] [address] [facility], [place], [address]. tel:[phone] Office/outpa tient visit,est, [facility], [address] [address], [place], [place], [address], [place] tel:[phone] [facility] Right hip (chief complaint) Left hip (chief complaint) Presence of right artificial hip jointPain in left hipUnilateral primary osteoarthriti s, left hip 2 Bronwyn Randolph. [address] [facility], [address], [place], [place], [address], [place]. tel:[phone] Referring Provider: Agustín Nuenz, [address] [facility] [address] [facility], [place], [address]. tel:[phone] [facility], [address] [address], [place], [place], [address], [place] tel:[phone] [facility] right hip (chief complaint) Pain in right hipPresence of right artificial hip joint 2 Bronwyn Randolph. [address] [facility], [facility] [address], [place], [place], [address], [place]. tel:[phone] Referring Provider: Agustín Nunez, [address] [facility] [address], [place], [address]. tel:[phone] [facility], [address] [address], [place], [place], [address], [place] tel:[phone] [facility] Displaced fracture of base of neck of right femur, initial encounter for closed fracture 2 Cedrick Shin . [address] [facility], [address], [place], [place], [address], [place]. tel:[phone] Office/outpa tient visit,new, [facility], [address] [facility] [address], [place], [place], [address], [place] tel:[phone] [facility] Right Hip (chief complaint) Pain in right hipDisplaced fracture of base of neck of right femur, initial encounter for closed fracture 2 Bronwyn Randolph. [address] [facility], [address], [place], [place], [address], [place]. tel:[phone] Referring Provider: Agustín Nunez, [address] [facility] [address], [place], [address]. tel:[phone] [facility], [address] [facility], [place], [address], [place] tel:[phone] [facility] No Information 2 Administrat rachid Provider. [address] [facility], [address], [place], [place], [address], [place]. tel:[phone] Family History Family Member Type Diagnosis Age At Onset Father Problem (finding) Heart Disease Immunizations Vaccine Date Status Comments influenza, injectable, quadrivalent, (3 years or older) administered Note: patient denies ; Source: Source Unspecified Payers Payer name Insurance type Covered democrat ID Authordavida steven(s) Aetna Medicare CI [id number] Social History Type Description Quantity Date Captured [...] assistive device. Left hip David presents to [facility] for ongoing evaluation of his left [...] assistive device. Left hip David presents to [facility] for initial post operative evaluation of [...] significant pain. Right hip David is a [facility] 66-year-old male who presents to the [...] office visit. right hip David is a [facility] 66-year-old male who presents to the [...] office visit. Right Hip David is a [facility] 66-year-old, 6 with 4 inch tall, [...] our office as needed. Dictation completed with OjoOido-Academics software, grammatical variances and spelling errors may inadvertently occur. Related to Bilateral primary osteoarthritis of knee Pathophysiology of t he disease process was discussed. Conservative treatment options were discussed including cortisone injections, visco supplementation injections, physical therapy, the use of ice or heat, the use of borv-zip-jfzzcvk nonsteroidal anti-inflammatory type medications and gorz-wyi-geyeamx pain medications, and the use of bracing. [...] and discharged in stable condition.Dictation completed with OjoOido-Academics software, grammatical variances and spelling errors may [...] follow up in 8 weeks.Dictation completed with OjoOido-Academ[employer] software, grammatical variances and spelling errors may [...] be scheduled for total hip arthroplasty.Posterior approach. [facility]. Dual mobility Related to Idiopathic aseptic necrosis of left femur Assessments Type Assessment Date assessment Pain in left knee assessment Pain in right knee assessment Bilateral primary osteoarthritis of knee Patient Care Teams Name Effective Dates (start - stop) Status Members No Information
--- NOTE | ~2025-04-26 | CT_ITS ---
EXAMINATION: CTA chest PE protocol DATE: 04/26/2025 19:31 CDT INDICATION: Positive d-dimer. Chest pain and dyspnea. Cough. TECHNIQUE: Computed tomographic angiography (CTA) of the chest was performed with 100 mL Omnipaque-350 intravenous contrast. The dose-length product was 819.39 mGy-cm. Maximum intensity projection 3D-reconstructions of the aorta and other arteries were constructed by the technologist on a separate workstation. COMPARISON: None. FINDINGS: There are filling defects right upper lobe segmental pulmonary arteries, consistent with pulmonary embolism, small thrombus burden. There is also filling defects in left lower lobe segmental pulmonary arteries. No thoracic lymphadenopathy. Mild atherosclerosis of the aorta without evidence for aneurysm or dissection. Heart size is normal. Small hiatal hernia. There are bilateral renal cysts. There is dependent atelectasis. No endobronchial lesions. No pneumothorax. Moderate thoracic spondylosis. IMPRESSION: 1. Filling defects in right upper and left lower lobe segmental pulmonary arteries consistent with pulmonary embolism, small thrombus burden. Reviewed, dictated and finalized at location O. IMPRESSION: 1. Filling defects in right upper and left lower lobe segmental pulmonary arter ies consistent with pulmonary embolism, small thrombus burden.
--- NOTE | ~2025-04-26 | XR_ITS ---
EXAMINATION: XR chest 2V DATE: 04/26/2025 14:49 INDICATION: Chest tightness TECHNIQUE: PA and lateral views of the chest were obtained. COMPARISON: Chest radiograph dated 10/25/2022 FINDINGS: Small nipple shadow projecting along the inferior margin of the anterior right sixth rib. There are multiple scattered small calcified pulmonary nodules throughout both lungs consistent with old granulomatous disease. No other airspace opacities, pulmonary edema, pleural effusion or pneumothorax. The c ardiomediastinal silhouette is normal. Moderate to severe thoracic spondylosis. IMPRESSION: 1. No acute cardiopulmonary disease. Reviewed, dictated and finalized at location A.
--- NOTE | 2025-04-26 13:54 | ECG_ITS ---
Test Date: 2025-04-26 14:31:30 Measurements Intervals [place] Rate: 57 P: -11 [place]: 183 QRS: 15 QRSD: 164 T: 17 QT: 440 QTc: 429 Interpretive Statements SINUS BRADYCARDIA RIGHT BUNDLE BRANCH BLOCK [120+ ms QRS DURATION, UPRIGHT V1, 40+ ms S IN I/aVL/V4/V5/V6] No previous ECG available for comparison Electronically Signed On 04-26-2025 14:46:10 CDT by Franklin Cain M.D.
--- OUTSIDE RECORDS SUMMARY | 2025-04-26 14:14 | XMS_ITS | Clinical Summary ---
Author Organization [facility] Address [address] [place] [id number] Phone Care Team Providers Care Commercial Sales Manager Name Role Phone Umesh Arzate DO Primary Care Provider [phone] Allergies No known active allergies Medications testosterone cypionate (DEPO-TESTOTER ONE) 200 MG/ML injection INJECT 3 4 (THREE FOURTHS) ML (CC) INTRAMUSCULARLY ONCE A WEEK 07/07/20 19 Active Cyanocobalamin (B-12) 1000 MCG capsule Active omega-3 (FISH OIL) 1000 MG capsule Take 1 capsule by mouth every 6 hours 06/09/20 18 Active traMADol (ULTRAM) 50 MG tablet Take 1 tablet by mouth every 12 hours Active pravastatin (PRAVACHOL) 20 MG tablet Take 20 mg by mouth 1 (one) time each day 03/03/20 20 Active Eliquis 5 MG tablet Take 5 mg by mouth every 12 (twelve) hours 12/18/19 21 Active cholecalcifero l (Vitamin D-[address]) 25 MCG (1000 UT) tablet 5,000 Units daily 08/05/19 17 Active dilTIAZem (CARDIZEM) 60 MG immediate release tablet Take 60 mg by mouth 3 (three) times a day 12/20/19 21 Active losartan (COZAAR) 100 MG tablet Take 50 mg by mouth daily 12/14/19 21 Active Active Problems Problem Noted Date Diagnosed Date Benign essential hypertension 08/10/2019 Cyst of kidney 08/10/2019 Chronic kidney disease, Stage II (mild) 02/10/20 19 Erythrocytosis 03/24/2018 Immunizations Immunization Administration Dates Next Due Influenza TIV (IM) 01/19/2021(Deferred: Patient Refused) Pneumococcal Conjugate 01/19/2021(Deferred: Itzel ent Refused) Family History Medical History Relation Comments Kidney disease Neg Hx Social History Tobacco Use Types Packs/Day Years Used Date Smoking Tobacco: Former Smokeless Tobacco: Never Alcohol Use Standard Drinks/Week Comments Yes 0 (1 standard drink = 0.6 oz pur e alcohol) occasionally Sex and Gender Information Value Date Recorded Sex Assigned at Not on file Legal Sex Male 12:36 PM MST Gender Identity Not on file Sexual Orientation Not on file Last Filed Vital Signs Vital Sign Reading Time Taken Comments Blood Pressure 138/70 01/19/2021 8:57 AM CDT Pulse 72 01/19/2021 8:57 AM CDT Temperature 36.6 C (97.8 F) 01/19/2021 8:57 AM CDT Respiratory Rate - - Oxygen Saturation - - Inhaled Oxygen Concentration - - Weight 113 kg (249 lb) 01/19/2021 8:57 AM CDT Height 193 cm (6' 4) 01/19/2021 8:57 AM CDT Body Mass Index 30.31 01/19/2021 8:57 AM CDT Plan of Treatment Health Maintenance Due Date Last Done Comments Pneumococcal PPSV23/PCV13 65 + Years / Low and Medium Risk (1 of 2 - PCV) 2005 Influenza Vaccine (#1) 2025 Insurance [employer] MEDICARE Member Subscriber Plan / Payer (Ef fective 2020-Present) Name:David Elias Member ID:[id number] Relation to Subscriber:Self Name:David Elias Subscriber ID:[id number] Payer ID:Not on file Group ID:Not on file Type:Medicare Address: [facility] [address] [id number] Care Teams Commercial Sales Manager Relationship Specialty Start Date End Date Umesh Arzate DO [address] [place] [id number] PCP - General Internal Medicine 08/06/19
--- OUTSIDE RECORDS SUMMARY | 2025-04-26 14:14 | XMS_ITS | Clinical Summary ---
Author Organization [facility] Address [address] [place] [phone] Phone Care Team Providers Care Engraver Copperplate Name Role Phone CaritoUmesh Tae Primary Care Provider Social History Tobacco Use Types Packs/Day Years Used Date Smoking Tobacco: Never Assessed Sex and Gender Information Value Date Recorded Sex Assigned at Not on file Legal Sex Male 1:44 PM CDT Gender Identity Not on file Sexual Orientation Not on file Plan of Treatment Health Maintenance Due Date Last Done Comments DTAP/TDAP/TD VACCINES (1 - Tdap) 1974 COLORECTAL SCREENING 2000 Colorectal Cancer Screening 2000 FIT-DNA Q 3 years 2000 FIT/FOBT Q 1 year 2000 Flex Sig/CT Colonography Q 5 years 2000 PNEUMOCOCCAL VACCINE 50+ YEARS (1 of 1 - PCV) 07/12/20 05 ZOSTER VACCINE (1 of 2) 2005 RSV VACCINE (60+ or ) (1 - Risk 60-74 years 1-dose series) 2015 INFLUENZA VACCINE (#1) 2025 Insurance [employer] OPEN ACCESS Care Teams Engraver Copperplate Relationship Specialty Start Date End Date Umesh Arzate DO [facility] [address] [place] [address] PCP - General Internal Medicine 05/07/19
--- OUTSIDE RECORDS SUMMARY | 2025-04-26 14:14 | XMS_ITS | Patient Health Record ---
Author Organization [facility] Address [address] [facility] [place] [address] Care Team Providers Care Manager Family Name Role Phone Gray Fang Unavailable [phone] Reason For Referral No Information Medications Medication SIG (Take, Route, Frequency, Duration) Notes Start Date End Date Status Anastrozole 1 MG Oral; Duration: 84 Active hydroCHLOROthiazide 25 MG Oral; Duration: 90 Active Suprep Bowel Prep Kit 17.5-3.13-1.6 GM/177ML Oral; Duration: 1 Active Valsartan 80 MG Oral; Duration: 90 Active traMADol HCl 50 MG Oral; Duration: 7 Active amLODIPine Besylate 5 MG Oral; Duration: 90 Active Losartan Potassium 50 MG Oral; Duration: 90 Active Lovastatin 40 MG Oral; Duration: 90 Active Testosterone Cypionate 200 MG/ML Intramuscular; Duration: 21 Active methylPREDNISolone 4 MG Oral; Duration: 6 Active Social History Tobacco Use: Social History Observation Description Date Details (start date - stop date) Former Smoker NA - NA Tobacco Use/Smoking Question Answer Notes Are you a former smoker Problems Problem Type SNOMED Code ICD Code Onset Dates Problem Status W/U Status Risk Notes Problem Lumbosacral radiculopathy (8532796) Radiculopathy, lumbosacral region (M54.17) Active confirmed Problem Degenerative disc disease (56364498) DDD (degenerative disc disease), lumbar (M51.36) Active confirmed Problem Displacement of lumbar intervertebral disc without myelopathy (72159033) Herniated nucleus pulposus, L5-S1 (M51.27) Active confirmed Problem Bilateral arthritis of hip (9957702506094468) Bilateral hip joint arthritis (M16.0) Active confirmed Plan Of Treatment No Information Medications Administered Medication Instructions Date of Administration Dosage Notes Bilateral L5/S1 SESI 07/17/2019
[2025-04-26 14:50] VITALS: BP 142/88; PULSE 62; RESP 20; TEMP 36.4; O2SAT 98
[2025-04-26 15:00] LABS: Hematocrit 45.6 % (42.0-52.0); Hemoglobin 14.6 g/dL (14.0-18.0); Immature Granulocyte Percent A 0.4 % (0-0.5); Lymphocytes Absolute Auto 1.39 K/mm3 (0.9-3.2); Mean Corpuscular HGB Conc 32.0 g/dl (32-36); Mean Corpuscular Hemoglobin 29.5 pg (26-34); Mean Corpuscular Volume 92.1 fl (80-100); Nucleated Red Blood Cells Absolute Auto 0.000 K/mm3 (0.0-0.012); Nucleated Red Blood Cells Perc 0.0 % (0.0-0.2); Platelet Count Result 226 k/mm3 (150-375); Red Blood Count 4.95 M/mm3 (4.6-6.20); White Blood Count 7.6 K/mm3 (4.5-10.0)
[2025-04-26 15:13] LABS: Alanine Aminotransferase 22 U/L (6-50); Albumin Level 4.2 g/dL (3.5-5.1); Alkaline Phosphatase 57 U/L (38-126); Anion Gap 7 mmol/L (4-12); Aspartate Amino Transferase 31 U/L (17-59); Bilirubin,Total 0.7 mg/dL (0.2-1.3); Blood Urea Nitrogen 27 mg/dL (9-20); Calcium 8.8 mg/dL (8.4-10.2); Carbon Dioxide 23 mmol/L (22-30); Chloride 105 mmol/L (98-107); Estimated CRCL calculation 49 ml/min; Estimated Glomerular Filt Rate 37; Glucose 98 mg/dL (65-110); Lipase 58 U/L (23-300); Potassium 4.3 mmol/L (3.4-5.0); Sodium 135 mmol/L (137-145); Total Protein 7.1 g/dL (6.3-8.2)
[2025-04-26 15:14] LABS: INR 1.0; Prothrombin Time 13.2 Seconds (11.1-14.7)
[2025-04-26 15:15] LABS: Partial Thromboplastin Time 28.9 Seconds (22.3-36.8)
[2025-04-26 15:23] LABS: Troponin I 0.013 ng/mL (0.000-0.034)
--- NOTE | 2025-04-26 16:11 | ED.CHESTPAIN ---
HPI - Chest Pain General Chief Complaint: Chest Pain <Radha Phillip PA-C - Last Filed: 04/26/25 16:27> Stated Complaint: Chest heaviness/SHOB-pain with cough <Radha Phillip PA-C - Last Filed: 04/26/25 16:27> Time Seen by Provider: 04/26/25 16:14 <ISIDRO Luke Last Filed: 04/26/25 16:27> Focused HPI: Patient is a 69 y/o male, with PMH of AFIB on ASA 325mg, CKD, HTN, HLD, who presents to the ED with c/o CP. Patient reports he has had chronic cough for the past 9 months. Over the past 1 month, he has had pain throughout his midsternal chest with coughing. Reported last night, he had worsening tightness of his chest, pain with deep breathing, difficulty breathing. Called his PCP today and was referred to the ED. Patient does report some midsternal chest discomfort currently. Denies fevers, pain or swelling in his legs. Sees Cardiology annually at [facility]. GENERAL: Well-appearing, well-nourished, and in no acute distress. HEAD: Normocephalic, atraumatic. CHEST: Clear to auscultation. ?No respiratory distress. HEART: Regular rate and rhythm.? MSK: Minimal tenderness over L lower anterior chest wall. No peripheral edema. NEURO: ?Alert and oriented x3. Patient screened in triage and initial orders placed.? ?Additional care and disposition to be based upon?diagnostic testing and treatment. <Radha Phillip PA-C - Last Filed: 04/26/25 16:27> Source: patient <Radha Phillip PA-C - Last Filed: 04/26/25 16:27> Mode of arrival: ambulatory <Radha Phillip PA-C - Last Filed: 04/26/25 16:27> Limitations: no limitations <ISIDRO Luke Last Filed: 04/26/25 16:27> History of Present Illness HPI narrative: per HPI <Yesenia Meyer MD - Last Filed: 04/27/25 03:15> Related Data Home Medications: Home Medications ?Medication ?Instructions ?Recorded ?Confirmed ?Last Taken ?Type aspirin 325 mg tablet 325 mg PO DAILY 10/16/21 02/09/25 04/12/24 History mecobalamin (vitamin B12) 5,000 5,000 mcg PO DAILY 10/16/21 02/09/25 04/12/24 History mcg lozenge ezetimibe 10 mg tablet 10 mg PO DAILY 10/25/22 02/09/25 04/13/24 History hydrochlorothiazide 25 mg tablet 25 mg PO DAILY 01/25/23 02/09/25 04/12/24 History cholecalciferol (vitamin D3) 50 5,000 unit PO DAILY 05/16/23 02/09/25 04/12/24 History mcg (2,000 unit) tablet diltiazem HCl 180 mg 360 mg PO DAILY 05/16/23 02/09/25 04/12/24 History capsule,extended release 24 hr magnesium PO 02/09/25 02/09/25 Unknown History <Radha Phillip PA-C - Last Filed: 04/26/25 16:27> Allergies/Adverse Reactions: Allergies Allergy/AdvReac Type Severity Reaction Status Date / Time [id number]-[id number]-DbF Reductase AdvReac Muscle Pain Verified 02/09/25 14:01 Inhibitor <Radha Phillip PA-C - Last Filed: 04/26/25 16:27> Review of Systems Review of Systems: All systems reviewed & are unremarkable except as noted in HPI and below <Yesenia Meyer MD - Last Filed: 04/27/25 03:15> [facility] Past Medical History Medical History: Medical History Hypogonadism in male UTI (urinary tract infection) History of renal cell carcinoma COVID-19 Atrial fibrillation 11/2020 associated with COVID-19 pneumonia CKD (chronic kidney disease), stage III Benign prostatic hyperplasia Acute kidney injury Acute dehydration Pneumonia due to 2019 novel coronavirus Lab test positive for detection of COVID-19 virus Renal cyst Being followed by Dr. Monroy. Hyperlipidemia 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 Hypertension <Radha Phillip PA-C - Last Filed: 04/26/25 16:27> Surgical History Surgical History: Surgical History History of total right hip replacement H/O left nephrectomy History of urinary tract surgery Urolift 10/11/[address] Blake No history of previous surgery <Radha Phillip PA-C - Last Filed: 04/26/25 16:27> Family History Family History: Family History Father Acute myocardial infarction, Onset Age: 67 of [place] Mother Hypothyroidism Sibling Brain tumor Hypothyroidism <ISIDRO Luke Last Filed: 04/26/25 16:27> Social History Social History: Social History Social History: Surrogate decision maker: Mamta Elias, . Code status: Full code. 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 Has children. Caffeine-tea Smoking packs per day: 2 Smoking cigarettes per day: 40.0 Years smoked: 15 Smoking pack-years: 30.00 Smoking status: Former smoker Tobacco type: cigarettes Second hand tobacco smoke exposure: Yes Smoking end date: 08/05/94 Alcohol intake: current Drinks per week: 12 Alcohol use details: social Substance use: never Substance use type: does not use Do You Feel Safe in your Home?: Yes Lack of Transportation: No Lack of Food: Never True Current Housing: I Have Housing Concerned About Future Housing: No Difficulty Paying Gas/Electric Bills: No Difficulty Paying for Meds: No Currently Unemployed: No Education: Bachelor's Degree Difficulty w/ Childcare or Family Care: No Living arrangements: with family Additional living arrangements comments: The patient lives in [place] with his . Additional occupation/education comments: Works for [employer]. Gender identity (if verbalized by the patient): Male Spiritual care concerns: No <Radha Phillip PA-C - Last Filed: 04/26/25 16:27> Exam Narrative: EXAMINATION OF ORGAN SYSTEMS/BODY AREAS: Constitutional: Vital signs per nursing GENERAL:[No acute distress, non-toxic appearing.] HEAD: Normal with no signs of head trauma. EYES: EOMI, conjunctiva normal ENT: Hearing grossly intact LUNGS: Nonlabored breathing. Clear to auscultation bilaterally HEART: [Regular rate and rhythm] ABD: [Soft], [nontender to palpation] EXT: Normal range of motion SKIN: [No rashes or lesions.] NEURO: [Alert and oriented x 3. No gross focal sensory or strength deficits.] PSYCH: Normal affect <Yesenia Meyer MD - Last Filed: 04/27/25 03:15> Course Vital Signs Vital signs: Vital Signs Temperature 97.6 F 04/26/25 14:50 Pulse Rate 62 04/26/25 14:50 Respiratory Rate 20 04/26/25 14:50 Blood Pressure 142/88 H 04/26/25 14:50 Pulse Oximetry 98 04/26/25 14:50 Temperature 97.6 F 04/26/25 14:50 Pulse Rate 71 04/26/25 20:31 Respiratory Rate 20 04/26/25 20:31 Blood Pressure 154/94 H 04/26/25 20:31 Pulse Oximetry 95 04/26/25 20:31 Oxygen Delivery Room Air 04/26/25 18:34 <Radha Phillip PA-C - Last Filed: 04/26/25 16:27> Vital Signs Temperature 97.6 F 04/26/25 14:50 Pulse Rate 62 04/26/25 14:50 Respiratory Rate 20 04/26/25 14:50 Blood Pressure 142/88 H 04/26/25 14:50 Pulse Oximetry 98 04/26/25 14:50 Temperature 97.6 F 04/26/25 14:50 Pulse Rate 71 04/26/25 20:31 Respiratory Rate 20 04/26/25 20:31 Blood Pressure 154/94 H 04/26/25 20:31 Pulse Oximetry 95 04/26/25 20:31 Oxygen Delivery Room Air 04/26/25 18:34 <Yesenia Meyer MD - Last Filed: 04/27/25 03:15> MDM - Chest Pain MDM Narrative Medical decision making narrative: MSE by MARY BETH in triage. <Radha Phillip PA-C - Last Filed: 04/26/25 16:27> MSE by MARY BETH in triage. Patient presenting with 2 weeks of chronic cough chest pain and shortness of breath, labs within acceptable limits other than D-dimer is elevated. Creatinine baseline. EKG - 12-Lead: Performed at 1431. Interpreted by me. [Sinus rhythm]. Rate 57. Right bundle-branch block. [Normal] axis. PA-interval [normal]. QRS duration [normal]. QTc [normal]. [No ST segment elevation or depression]. [T-wave normal]. Impression: No EKG evidence of acute ischemia or dysrhythmia. CT PE unfortunately does show likely PE, with low clot burden. EKG - 12-Lead: Performed at 1736. Interpreted by me. [Sinus rhythm]. Rate 59 with PVC.. [Normal] axis. PA-interval [normal]. QRS duration [normal]. QTc [normal]. [No ST segment elevation or depression]. [T-wave normal]. Impression: No EKG evidence of acute ischemia or dysrhythmia. Troponins have been negative. I discussed with patient findings of PE, he has been on Eliquis in the past without issues and is agreeable to starting back up on it. Low PESI and HESTIA score. Dose given here, script given with encouragement to cause doctor tomorrow morning and his intake coordinator so ever and is aware of the new diagnosis, and to make sure that his insurance will be able to cover his Eliquis. Strict return precautions discussed with patient and at bedside. <Yesenia Meyer MD - Last Filed: 04/27/25 03:15> Lab Data Result diagrams: 04/26/25 14:37 04/26/25 14:37 <Radha Phillip PA-C - Last Filed: 04/26/25 16:27> Labs: Lab Results 04/26/25 04/26/25 04/26/25 Range/Units 14:37 17:40 20:23 WBC 7.6 (4.5-10.0) K/mm3 RBC 4.95 (4.6-6.20) M/mm3 Hgb 14.6 (14.0-18.0) g/dL Hct 45.6 (42.0-52.0) % MCV 92.1 (80-100) fl MCH 29.5 (26-34) pg MCHC 32.0 (32-36) g/dl RDW 15.0 H (11.5-14.5) % Plt Count 226 (150-375) k/mm3 MPV 9.8 (7.4-10.4) fl Immature Gran % (Auto) 0.4 (0-0.5) % Neut % (Auto) 68.9 (45.5-73.1) % Lymph % (Auto) 18.2 L (18.3-44.2) % Butts % (Auto) 7.9 (2.6-8.5) % Eos % (Auto) 4.2 (0-4.4) % Baso % (Auto) 0.4 (0.2-1.2) % Lymph # (Auto) 1.39 (0.9-3.2) K/mm3 Butts # (Auto) 0.6 (0.1-0.6) K/mm3 Eos # (Auto) 0.3 (0-0.3) K/mm3 Baso # (Auto) 0.0 (0.0-0.1) K/mm3 Abs Immat Gran (auto) 0.03 (0.00-0.031) K/mm3 Absolute Neuts (auto) 5.3 (1.3-6.7) K/mm3 Absolute Nucleated RBC 0.000 (0.0-0.012) K/mm3 Nucleated RBC % 0.0 (0.0-0.2) % PT 13.2 (11.1-14.7) Seconds INR 1.0 APTT 28.9 (22.3-36.8) Seconds D-Dimer 0.93 H (<0.48) ug/mL Sodium 135 L (137-145) mmol/L Potassium 4.3 (3.4-5.0) mmol/L Chloride 105 (98-107) mmol/L Carbon Dioxide 23 (22-30) mmol/L Anion Gap 7 (4-12) mmol/L BUN 27 H (9-20) mg/dL Creatinine 1.83 H (0.7-1.3) mg/dL Estim Creat Clear Calc 49 ml/min Estimated GFR 37 L (59 - ) Glucose 98 (65-110) mg/dL Calcium 8.8 (8.4-10.2) mg/dL Total Bilirubin 0.7 (0.2-1.3) mg/dL AST 31 (17-59) U/L ALT 22 (6-50) U/L Alkaline Phosphatase 57 (38-126) U/L Troponin I 0.013 < 0.012 < 0.012 (0.000-0.034) ng/mL Total Protein 7.1 (6.3-8.2) g/dL Albumin 4.2 (3.5-5.1) g/dL Lipase 58 (23-300) U/L <Radha Phillip PA-C - Last Filed: 04/26/25 16:27> Lab Results 04/26/25 04/26/25 04/26/25 Range/Units 14:37 17:40 20:23 WBC 7.6 (4.5-10.0) K/mm3 RBC 4.95 (4.6-6.20) M/mm3 Hgb 14.6 (14.0-18.0) g/dL Hct 45.6 (42.0-52.0) % MCV 92.1 (80-100) fl MCH 29.5 (26-34) pg MCHC 32.0 (32-36) g/dl RDW 15.0 H (11.5-14.5) % Plt Count 226 (150-375) k/mm3 MPV 9.8 (7.4-10.4) fl Immature Gran % (Auto) 0.4 (0-0.5) % Neut % (Auto) 68.9 (45.5-73.1) % Lymph % (Auto) 18.2 L (18.3-44.2) % Butts % (Auto) 7.9 (2.6-8.5) % Eos % (Auto) 4.2 (0-4.4) % Baso % (Auto) 0.4 (0.2-1.2) % Lymph # (Auto) 1.39 (0.9-3.2) K/mm3 Butts # (Auto) 0.6 (0.1-0.6) K/mm3 Eos # (Auto) 0.3 (0-0.3) K/mm3 Baso # (Auto) 0.0 (0.0-0.1) K/mm3 Abs Immat Gran (auto) 0.03 (0.00-0.031) K/mm3 Absolute Neuts (auto) 5.3 (1.3-6.7) K/mm3 Absolute Nucleated RBC 0.000 (0.0-0.012) K/mm3 Nucleated RBC % 0.0 (0.0-0.2) % PT 13.2 (11.1-14.7) Seconds INR 1.0 APTT 28.9 (22.3-36.8) Seconds D-Dimer 0.93 H (<0.48) ug/mL Sodium 135 L (137-145) mmol/L Potassium 4.3 (3.4-5.0) mmol/L Chloride 105 (98-107) mmol/L Carbon Dioxide 23 (22-30) mmol/L Anion Gap 7 (4-12) mmol/L BUN 27 H (9-20) mg/dL Creatinine 1.83 H (0.7-1.3) mg/dL Estim Creat Clear Calc 49 ml/min Estimated GFR 37 L (59 - ) Glucose 98 (65-110) mg/dL Calcium 8.8 (8.4-10.2) mg/dL Total Bilirubin 0.7 (0.2-1.3) mg/dL AST 31 (17-59) U/L ALT 22 (6-50) U/L Alkaline Phosphatase 57 (38-126) U/L Troponin I 0.013 < 0.012 < 0.012 (0.000-0.034) ng/mL Total Protein 7.1 (6.3-8.2) g/dL Albumin 4.2 (3.5-5.1) g/dL Lipase 58 (23-300) U/L <Yesenia Meyer MD - Last Filed: 04/27/25 03:15> Discharge Plan Discharge Clinical Impression: Pulmonary embolism <Radha Phillip PA-C - Last Filed: 04/26/25 16:27> Patient Disposition: Home <Radha Phillip PA-C - Last Filed: 04/26/25 16:27> Condition: Stable <Radha Phillip PA-C - Last Filed: 04/26/25 16:27> Instructions: Pulmonary Embolism (ED) <Radha Phillip PA-C - Last Filed: 04/26/25 16:27> Additional Instructions: Please call your doctor tomorrow to make sure they can fill out the prior authorization for your new prescription of Eliquis. Also call your intake coordinator and update them on the new information. If you start having any severe chest pain or shortness of breath or anything else concerning, return to the ER immediately. <Radha Phillip PA-C - Last Filed: 04/26/25 16:27> Patient Language: Algerian <Radha Phillip PA-C - Last Filed: 04/26/25 16:27> Prescriptions: New Eliquis DVT-PE Treat 30D Start 5 mg (74 tabs) tablets,dose pack See Rx Instructions .ROUTE .COMPLEX Qty: 74 0RF Rx Instructions: orally per package directions No Action aspirin 325 mg tablet 325 mg PO DAILY mecobalamin (vitamin B12) 5,000 mcg lozenge 5,000 mcg PO DAILY Rx Instructions: allow to dissolve in mouth OR may chew lightly before swallowing diltiazem HCl 180 mg capsule,extended release 24hr 360 mg PO DAILY hydrochlorothiazide 25 mg tablet 25 mg PO DAILY cholecalciferol (vitamin D3) 50 mcg (2,000 unit) tablet 5,000 unit PO DAILY ezetimibe 10 mg tablet 10 mg PO DAILY magnesium PO sildenafil 50 mg tablet 50 - 100 mg PO DAILY PRN (Reason: sexual activity) Qty: 30 2RF Rx Instructions: administer 30 minutes to 4 hours before activity (DME) BD Bulk Syringe Slip Tip 1 mL syringe See Rx Instructions .ROUTE .MEDSUPPLY Qty: 20 1RF Rx Instructions: Use to inject Testosterone losartan 100 mg tablet 100 mg PO DAILY Qty: 90 1RF colchicine 0.6 mg tablet 0.6 mg PO DAILY Qty: 9 1RF Rx Instructions: take two tabs with flair. may repeat with one extra tab in 2 hours if no sig change testosterone cypionate [Depo-Testosterone] 200 mg/mL oil 150 mg IM WEEKLY Qty: 10 0RF amlodipine 10 mg tablet 10 mg PO DAILY Qty: 90 1RF <Radha Phillip PA-C - Last Filed: 04/26/25 16:27> Follow-up/Referrals: Umesh Arzate DO [Primary Care Provider, Internal Medicine] <Radha Phillip PA-C - Last Filed: 04/26/25 16:27>
--- NOTE | 2025-04-26 17:30 | ECG_ITS ---
Test Date: 2025-04-26 17:36:04 Measurements Intervals [place] Rate: 59 P: 70 [place]: 195 QRS: 21 QRSD: 165 T: 1 QT: 439 QTc: 435 Interpretive Statements SINUS BRADYCARDIA WITH OCCASIONAL SUPRAVENTRICULAR PREMATURE COMPLEXES RIGHT BUNDLE BRANCH BLOCK [120+ ms QRS DURATION, UPRIGHT V1, 40+ ms S IN I/aVL/V4/V5/V6] ABNORMAL ECG Compared to ECG 04/26/2025 14:31:30 No significant changes Electronically Signed On 04-27-2025 12:15:13 CDT by Alexander Wells M.D.
[2025-04-26 18:10] LABS: Troponin I < 0.012 ng/mL (0.000-0.034)
[2025-04-26 18:29] VITALS: BP 159/97; PULSE 64; RESP 12; O2SAT 98
[2025-04-26 18:30] VITALS: BP 163/96; PULSE 64; RESP 20; O2SAT 93
[2025-04-26 19:23] VITALS: BP 150/98; PULSE 63; RESP 20; O2SAT 98
--- NOTE | 2025-04-26 19:26 | PC.NURSE ---
Assumed care if patient after receiving report from MARIAA Perry @ [id number].
[2025-04-26] MEDS: APIXABAN 5 MG TABLET 10 MG PO (20:29)
[2025-04-26 20:31] VITALS: BP 154/94; PULSE 71; RESP 20; O2SAT 95
--- OUTSIDE RECORDS SUMMARY | 2025-04-26 20:38 | XMS_ITS | Clinical Summary ---
Author Organization [facility] Address [address] [place] [address] Care Team Providers Care Route Sales Delivery Drivers Supervisor Name Role Phone Umesh Arzate DO Primary Care Provider [phone] Alfa Blake MD Unavailable [phone] Kip Philip MD Unavailable Allergies Active Allergy Reactions Criticality Noted Date Comments Atorvastatin Muscle pain Medium 05/31/2022 Carvedilol Other (See comments) Low 09/23/2023 Carvedilol was not tolerated well (even at 6.25 mg b.i.d.) with feelings of tired, cough, soreness in the muscles of the legs. Lovastatin Muscle pain Medium 05/31/2022 Bempedoic Acid Other (See comments) Low 12/04/2022 Muscle cramps Pravastatin Muscle pain Medium 05/31/2022 Medications cyanocobalamin (Vitamin B-12) 1,000 mcg tablet Take 2 tablets (2,000 mcg total) by mouth every morning 7 Active testosterone cypionate (DEPO-TESTOTERO NE) 200 mg/mL injection Inject 1 mL (200 mg total) into the muscle as instructed every 7 days On Saturdays 1 Active losartan (COZAAR) 100 mg tablet Take 1 tablet (100 mg total) by mouth every morning Active BD Tuberculin Syringe 1 mL 21 gauge x 1 syringe USE DIRECTED TO INJECT TESTOSTERONE 2 Active cholecalciferol (VITAMIN D-3) 5,000 unit tablet Take 1 tablet (5,000 Units total) by mouth every morning Active sildenafiL (VIAGRA) 50 mg tablet Take 1 tablet (50 mg total) by mouth as needed for erectile dysfunction 2 Active aspirin 325 mg enteric coated tabletIndicatio ns:Deep Vein Thrombosis Prevention Take 1 tablet (325 mg total) by mouth 2 (two) times a day 60 tablet 11 4 Active Additional Information Patient taking differently:325 mg oral 2 times daily,Indications: prevention of thrombosis, history of afib, Informant: Self, Reported on 02/10/2025 amLODIPine (NORVASC) 10 mg tablet Take 1 tablet (10 mg total) by mouth daily before breakfast 4 Active ezetimibe (ZETIA) 10 mg tablet Take 1 tablet by mouth once daily 90 tablet 3 5 Active Additional Information Patient taking differently:10 mg oralDaily before breakfast, Indications: hyperlipidemia, Informant: Self, Reported on 02/10/2025 dilTIAZem XR (dilTIAZem CD) 180 mg 24 hr capsule Take 2 capsules by mouth once daily 180 capsule 2 5 Active Additional Information Patient taking differently:360 mg oralDaily before breakfast, Indications: hypertension, Informant: Self, Reported on 02/10/2025 magnesium gluconate 200 mg tablet Take 1 tablet (200 mg total) by mouth nightly Active acetaminophen (TYLENOL) 325 mg tablet Take 2 tablets (650 mg total) by mouth every 6 (six) hours as needed for pain Active acetaminophen-a spirin-caffeine (EXCEDRIN MIGRAINE) 250-250-65 mg per tablet Take 1 tablet by mouth every 6 (six) hours as needed for headaches or pain Active hydroCHLOROthia zide (HYDRODIURIL) 25 mg tablet Take 1 tablet by mouth once daily 90 tablet 5 Active Active Problems Problem Noted Date Diagnosed Date BPH with obstruction/lower urinary tract symptom s 02/10/2025 Benign prostatic hyperplasia with lower urinary tract symptoms 01/01/2025 Bilateral hip joint arthritis 06/04/2024 DDD (degenerative disc disease), lumbar 06/04/20 24 Dorsalgia, unspecified 06/04/2024 Herniated nucleus pulposus, L5-S1 06/04/2024 History of colonic polyps 06/04/2024 Other chronic pain 06/04/2024 Pain in unspecified knee 06/04/2024 Radiculopathy, lumbosacral region 06/04/2024 Spondylosis without myelopat hy or radiculopathy, lumbosacral region 06/04/2024 History of total left hip replacement 01/30/2024 Primary osteoarthritis of left hip 12/09/2023 Right ventricular enlargement 12/04/2022 Left ventricular hypertrophy 12/04/2022 Statin intolerance 05/31/2022 Mixed hyperlipidemia 05/31/2022 APC (atrial premature contractions) 05/28/2022 Renal cancer, left 02/28/2022 Elevated PSA 02/28/2022 Erectile dysfunction 02/28/2022 Displaced fracture of base o f neck of right femur, initial encounter for closed fracture 01/05/2022 Closed displaced fracture of base of neck of rig ht femur 01/02/2022 Overview (01/02/2022): Added automatically from request for surgery [id number] BPH with elevated PSA 09/26/2021 Overview (09/26/2021): Added automatically from request for surgery [id number] Retention of urine 05/11/2021 H/O atrial fibrillation without current medicati on 02/01/2021 Chronic anticoagulation 02/01/2021 Essential hypertension 02/01/2021 AF (paroxysmal atrial fibrillation) 02/01/2021 CKD (chronic kidney disease), stage III 02/02/20 21 Polycystic kidney disease 02/01/2021 Erythrocytosis 03/24/2018 Resolved Problems Problem Noted Date Diagnosed Date Resolved Date Left renal mass 01/31/2021 09/23/2023 Encounters Date Type Department Care Team Description 03/01/2025 Results Follow-Up [facility] Medicine Urology [facility] Medical Office Building [address] [place] [address] Alexander Kang MD Urine culture Urine, bladder, Extra Urine Specimen, Extra Specimen 02/26/2025 Orders Only [facility] Urology [address] [facility] Medical Office Building [address] [place] [id number] Alexander Kang MD Urinary tract infection with hematuria, site unspecified (Primary Dx) 02/26/2025 Telephone [facility] Medicine Surgery [address] [place] [address] Mary Isaac 02/10/2025 12:41 PM CDT - 02/10/2025 2:31 PM CDT Surgery [facility] [address] [place] [address] Alexander Kang MD TRANSURETHRAL WATERJET ABLATION OF PROSTATE 02/10/2025 11:56 AM CDT Anesthesia Event [facility] [address] [place] [address] Mauro Lopez MD Jablonski, Melody A., NP 02/10/2025 10:08 AM CDT - 02/11/2025 12:58 PM CDT Hospital Encounter [address] [address] Alexander Kang MD Benign prostatic hyperplasia with urinary obstruction (Primary Dx) Discharge Disposition: Discharge to home or self care from Last 3 Months Surgical History Surgery Date Site/Laterality Comments CARDIOVERSION 08/05/2020 - 08/04/2021 RENAL MASS EXCISION 02/02/2021 - 03/04/2021 Left EYE SURGERY 08/05/1989 - 08/04/1990 PRK COLONOSCOPY HIP ARTHROPLASTY 08/05/2021 - 08/04/2022 Right BLADDER SURGERY 09/05/2021 - 10/02/2021 urolift TOTAL HIP ARTHROPLASTY 08/05/2023 - 08/04/2024 PROSTATE BIOPSY 08/05/2023 - 08/04/2024 Medical History Medical History Date Comments Hypertension Obesity Hyperlipidemia Pneumonia 11/2020 Covid Pneumonia Gout Enlarged prostate Covid-19 11/08/2020 Atrial fibrillation (HCC) CKD (chronic kidney disease) stage 2, GFR 60-89 ml/min Polycystic kidney disease Renal mass, left Arthritis Family History Medical History Relation Name Comments Heart attack Father Arthritis Mother Dementia Mother No Known Problems Sister 1 Obesity Sister 2 Relation Name Status Comments Father (Age 66) Mother Alive Sister 1 Alive Sister 2 Alive Social History Tobacco Use Types Packs/Day Years Used Date Smoking Tobacco: Former Cigarettes 2 20 0 02/07/1970 - 02/07/1990 Smokeless Tobacco: Never Tobacco Cessation:Counseling Given: Not Answered AUDIT-C Answer Date Recorded Q1: How often do you have a drink containing alc ohol? 2-3 times a week 02/10/2025 Q2: How many drinks containi ng alcohol do you have on a typical day when you are drinking? 3 or 4 02/10/2025 Q3: How often do you have si x or more drinks on one occasion? Less than monthly 02/10/2025 Personal Safety Answer Date Recorded Have you ever been in or are you currently in a harmful physical or emotional relationship or is someone making you feel afraid or unsafe? Denies 02/10/2025 Sex and Gender Information Value Date Recorded Sex Assigned at Not on file Legal Sex Male 8:59 AM FINANCIAL SALES PROFESSIONAL Gender Identity Male 07/11/2021 8:42 AM FINANCIAL SALES PROFESSIONAL Sexual Orientation Straight 07/11/2021 8: 42 AM FINANCIAL SALES PROFESSIONAL Obstetrics History Last Filed Vital Signs Vital Sign Reading Time Taken Comments Blood Pressure 130/82 02/11/2025 7:59 AM CDT Pulse 69 02/11/2025 7:59 AM CDT Temperature 36.5 C (97.7 F) 02/11/2025 7:59 AM CDT Respiratory Rate 18 02/11/2025 7:59 AM CDT Oxygen Saturation 96% 02/11/2025 7:59 AM CDT Inhaled Oxygen Concentration - - Weight 120.2 kg (265 lb) 02/10/2025 6:00 PM CDT Height 193 cm (6' 4) 02/10/2025 11:27 AM CDT Body Mass Index 32.26 02/10/2025 11:27 AM CDT Plan of Treatment Health Maintenance Due Date Last Done Comments Colon Cancer Screening-Colonoscopy 1955 Depression Screening 1955 Hepatitis C Screening 1955 DTaP/Tdap/Td Vaccine (1 - Tdap) 1966 Hepatitis B Screening 1973 Pneumococcal vaccine 65+ (1 of 1 - PCV) 2005 Zoster Vaccine (1 of 2) 2005 Well Visit 65+ 2020 Prostate Cancer Screening-PSA 03/12/2025, 09/24/2022, 04/16/2022, Additional history exists Covid-19 Vaccine (3 - 2024-2 6 season) 2025 03/31/2021, 03/06/2021 Influenza Vaccine (#1) 2025 12/09/2023 Fall Risk Assessment 02/11/2026 02/11/2025 Abdominal Aortic Aneurysm (A AA) Screen Completed 03/26/2022, 08/31/2021 Medical Devices Implanted Type Area Public Health Administrator Device Identifier Shelf Expiration Date Model / Serial / Lot [employer] [id number] Urolift Implant Urological - [id number] Implanted:Qty: 4 on 10/11/2021 by Alfa Blake MD at [facility] N/A: Urethra [employer] 08/22/2022 [id number] / / [id number] [employer] [id number] Urolift Implant Urological - [id number] Implanted:Qty: 2 on 10/11/2021 by Alfa Blake MD at [facility] N/A: Urethra [employer] 02/20/2023 [id number] / / [id number] [employer] Mdm 48mm Hip G Liner Acetabular Cocr 28mm Femoral Head [id number] - [id number] Implanted:Qty: 1 on 01/05/2022 by Kip Philip MD at [facility] Right: Hip [employer] [id number] 04/19/2026 [id number] / / [id number] [employer] [id number] Screw Bone Trident Ii L20mm Od6.5mm Low Profile Hexagonal Sterile - [id number] Implanted:Qty: 1 on 01/05/2022 by Kip Philip MD at [facility] Right: Hip [employer] [id number] 11/01/2026 2111-3049 / / [id number] [employer] [id number] Screw Bone Trident Ii L40mm Od6.5mm Low Profile Hexagonal Sterile - [id number] Implanted:Qty: 1 on 01/05/2022 by Kip Philip MD at [facility] Right: Hip [employer] [id number] 08/29/2026 3870-1459 / / [id number] [employer] 702-04-60g Shell Acetabular Trident Ii Tritanium G Od60mm Hip 5 Screw Hole Cluster Sterile - [id number] Implanted:Qty: 1 on 01/05/2022 by Kip Philip MD at [facility] Right: Hip [employer] [id number] 07/24/2026 702-04-60G / / [id number] [employer] V40 28mm Hip +4mm Offset Taper Head Femoral [employer] Delta 6570-0-228 - [id number] Implanted:Qty: 1 on 01/05/2022 by Kip Philip MD at [facility] Right: Hip [employer] [id number] 06/22/2026 6570-0-228 / / [id number] [employer] 7236-2-854 Insert Church Adm X3 - [id number] Implanted:Qty: 1 on 01/05/2022 by Kip Philip MD at [facility] Right: Hip [employer] [id number] 02/13/2026 7236-2-854 / / [id number] [employer] Accolade 111mm 35mm Modular Hip 132d 6 Taper Stem Femoral Sterile [id number] - [id number] Implanted:Qty: 1 on 01/05/2022 by Kip Philip MD at [facility] Right: Hip [employer] [id number] 11/20/2025 [id number] / / [id number] [employer] Screw Bone Trident Ii L35mm Od6.5mm Low Profile Hexagonal Sterile 3223-8534 - [id number] Implanted:Qty: 1 on 01/10/2024 by Kip Philip MD at [facility] Left: Hip [employer] [id number] 08/29/2028 9332-1047 / / [id number] [employer] Accolade Ii V40 117mm 37mm Hip 132d 8 47mm Offset Stem Femoral 8444-6454 - [id number] Implanted:Qty: 1 on 01/10/2024 by Kip Philip MD at [facility] Left: Hip [employer] [id number] 11/16/2025 8888-7116 / / [id number] [employer] Insert Church Adm X3 7236-2-854 - [id number] Implanted:Qty: 1 on 01/10/2024 by Kip Philip MD at [facility] Left: Hip [employer] [id number] 10/31/2026 7236-2-854 / / [id number] [employer] Shell Acetabular Trident Ii Tritanium G Od60mm Hip 5 Screw Hole Cluster Sterile 702-04-60g - [id number] Implanted:Qty: 1 on 01/10/2024 by Kip Philip MD at [facility] Left: Hip [employer] [id number] 10/02/2028 702-04-60G / / [id number] [employer] V40 28mm Hip +4mm Offset Taper Head Femoral [employer] Delta 6570-0-228 - [id number] Implanted:Qty: 1 on 01/10/2024 by Kip Philip MD at [facility] Left: Hip [employer] [id number] 09/14/2028 6570-0-228 / / [id number] [employer] Mdm 48mm Hip G Liner Acetabular Cocr 28mm Femoral Head [id number] - [id number] Implanted:Qty: 1 on 01/10/2024 by Kip Philip MD at [facility] Left: Hip [employer] [id number] 04/02/2027 [id number] / / [id number] Procedures Procedure Name Priority Date/Time Associated Diagnosis Comments EXTRA SPECIMEN Routine 02/26/2025 5:05 PM CDT EXTRA URINE SPECIMEN Routine 02/26/2025 5:05 PM CDT URINE CULTURE Routine 02/26/2025 5:05 PM CDT Urinary tract infection with hematuria, site unspecified NC AN PROCEDURE PLACEHOLDER Routine 02/10/2025 12:15 PM CDT NC AN ELECTIVE ENDOTRACHEAL AIRWAY Routine 02/10/2025 12:15 PM CDT TRANSURETHRAL WATERJET ABLATION OF PROSTATE 02/10/2025 12:01 PM CDT Benign prostatic hyperplasia with lower urinary tract symptoms, symptom details unspecified Case Notes 02/09- Moved cases up due to a cancellation sent msg to [facility] () PSA DIAGNOSTIC Routine 03/12/2023 3:45 PM CDT BPH with elevated PSA CT CHEST ABDOMEN PELVIS W CONTRAST Schedule Routine, Read Routine (OP Routine) 03/26/2022 1:22 PM CDT Renal cancer, left (HCC) from Last 3 Months or Most Recently Relevant to Health Maintenance Results * Extra Specimen (02/26/2025 5:05 PM CDT) Extra Tube Received [facility] Comment: An extra specimen was received with no test requested. The specimen will be maintained in storage in case additional testing is needed. Please call the client service department for further assistance. Specimen Type Received Urine;Urine Transport Vial [facility] 02/26/2025 5:05 PM CDT 02/27/2025 4:11 AM CDT Narrative [facility] - 02/27/2025 9:32 PM CDT FASTING:NO FASTING: NO Alexander Kang MD LAB BLOOD ORDERABLES Final Result Performing Organization Address [facility] de Phone Number [facility] [employer] [address] [place] [address] * Extra Urine Specimen (02/26/2025 5:05 PM CDT) Extra Urine Specimen [facility] CommentT [facility] Comment: An extra tube was received without a test specified. We will hold this specimen in our cold storage in the event additional testing is requested. Please contact your local client application support specialist for further assistance within 72 hours due to specimen stability. 02/26/2025 5:05 PM CDT 02/27/2025 4:11 AM CDT Narrative [facility] - 02/27/2025 9:32 PM CDT FASTING:NO FASTING: NO Alexander Kang MD LAB URINE ORDERABLES Final Result Performing Organization Address [facility] de Phone Number [facility] [employer] [address] [place] [address] * Urine culture Urine, bladder (02/26/2025 5:05 PM CDT) Pathologist [facility] Urine culture [employer] [facility] Comment: CULTURE, URINE, ROUTINE Micro Number: [id number] Test Status: Final Specimen Source: Urine Specimen Quality: Adequate Result: Less than 10,000 CFU/mL of single Gram positive organism isolated. No further testing will be performed. If clinically indicated, recollection using a method to minimize contamination, with prompt transfer to Urine Culture Transport Tube, is recommended. Urine, bladder 02/26/2025 5: 05 PM CDT 02/27/2025 4:11 AM CDT Narrative [facility] - 02/27/2025 9:32 PM CDT FASTING:NO FASTING: NO Alexander Kang MD LAB MICROBIOLOGY - GE NERAL ORDERABLES Final Result Performing Organization Address [facility] de Phone Number [facility] [employer] [address] [place] [address] * NC AN ELECTIVE ENDOTRACHEAL AIRWAY, NC AN PROCEDURE PLACEHOLDER (02/10/2025 12:15 PM CDT) Narrative Tita Malone CRNA - 02/10/2025 12:15 PM CDT Tita Malone CRNA 02/10/2025 12:16 PM Airway Patient location: OR Urgency: elective Difficult airway: no Staff: Placed by: [employer] NURSE: Tita Malone CRNA Airway prep: Preoxygenated: yes Patient position: sniffing Mask difficulty assessment: 0 - not attempted Sedation level during airway: GA Final airway details: Final airway type: endotracheal airway Tube type: ETT ETT size: 7.5 mm Cuffed: yes Technique used for successful ETT placement: video laryngoscopy Devices/Methods used in placement: stylet Insertion site: oral Blade type: David Video blade type: Lomas Blade size: 4 Cormack-Lehane (video): grade I - full view of glottis Cuff volume: 8 mL Cuff inflated with: air ETT to teeth: 24 cm Placement verified by: auscultation and CO2 detection Airway secured with: silk tape Number of attempts: 1 Mauro Lopez MD ANESTHESIA ORDERABLES F inal Result * (ABNORMAL) PSA diagnostic (03/12/2023 3:45 PM CDT) PSA-Total 7.16(H) <=5.40 ng/mL [facility] Comment: Interpretive Data AGE SEX REFERENCE INTERVAL 0 minutes-150 years Female None 0 minutes-49 years Male None 50-59 years Male 0-3.90 60-69 years Male 0-5.40 70-79 years Male 0-6.20 80-150 years Male 0-6.20 The Vickey PSA Total assay procedure was used. Results from different manufacturers or methods may not be comparable. Serial testing should be performed using the same method. Current interpretive data last revised 21. Blood 03/12/2023 3:45 PM CDT 03/12/2023 4:14 PM CDT us Alexander Kang MD LAB BLOOD ORDERABLES Final Result [facility] [address] [facility]. Department [place] [address] * CT Chest Abdomen Pelvis W Contrast (03/26/2022 1:22 PM CDT) Anatomical Region Laterality Modality Body N/A Computed Tomogra phy 03/26/2022 4:44 PM CDT Impressions 03/26/2022 4:59 PM CDT 1. Postsurgical changes of left partial nephrectomy without evidence of local recurrence. 2. New 5 mm right lower lobe pulmonary nodule, which is indeterminate. Recommend continued attention on follow-up imaging. 3. No definite evidence of metastatic disease in the abdomen or pelvis. 4. Findings of mild acute uncomplicated diverticulitis involving the proximal sigmoid colon. Clinical follow-up is recommended. Repeat imaging could be obtained if any symptoms worsen or do not resolve appropriately. 5. Circumferential urinary bladder wall thickening, which may represent sequela of chronic bladder outlet obstruction, however acute cystitis can have a similar appearance. Recommend correlation with urinalysis and symptoms of urinary tract infection. The NonCritical results were discussed with Dr. Parker by Dr. Franco on 03/26/22 at 4:45pm. Dictated by: Brent Franco M.D. The radiology attending physician has personally reviewed this study, and had reviewed and/or edited this written report and agrees with it. Electronically signed by: Mohamud Perez M.D. Narrative 03/26/2022 4:59 PM CDT EXAMINATION: Computed tomography of the chest, abdomen and pelvis with intravenous contrast HISTORY: Renal cell carcinoma status post left partial nephrectomy. TECHNIQUE: Transaxial computed tomographic images of the chest, abdomen and pelvis were obtained with intravenous contrast according to the standard protocol after the uneventful administration of 75 mL Opti-Ray 350 intravenous contrast. COMPARISON: CT of the abdomen without and with contrast dated 08/31/2021, MRI of the abdomen dated 12/13/2020, and MRI of the pelvis with prostate protocol dated 03/04/2020. FINDINGS: Chest: No pneumonia, pulmonary edema, pleural effusion, or pneumothorax. Scattered calcified nodules in the lungs are compatible sequela of old granulomatous disease. There is a new 5 mm right lower lobe pulmonary nodule in the anterior right lung base. Normal thyroid gland. Scattered subcentimeter supraclavicular and mediastinal lymph nodes are nonspecific, but likely reactive in nature. Calcified bilateral hilar and subcarinal lymph nodes, in keeping with sequela of old granulomatous disease. No lymphadenopathy in the chest. The heart size is normal. There is no pericardial effusion or pericardial thickening. The thoracic aorta is normal in course and caliber with mild calcified atherosclerosis of the thoracic aorta.. Abdomen/Pelvis: The liver is normal in size morphology. There are no suspicious focal liver lesions. No intrahepatic or extrahepatic biliary ductal dilation. The gallbladder is normal. The pancreas, spleen, and the right adrenal gland are normal. There is subtle nodular thickening of the left adrenal gland without a definite left adrenal gland nodule. Redemonstrated are postsurgical changes of partial left nephrectomy with mild interval improvement of stranding about the left kidney resection bed, in keeping with evolving postoperative changes. No definite enhancing solid nodularity or soft tissue thickening in the region of the left partial nephrectomy resection bed to suggest local recurrence. Multiple cystic lesions are again noted in both kidneys. The largest cystic lesion in the right kidney demonstrates minimal complexity with hyperattenuating internal septae and measures 9.5 x 5.5 cm (series 2 image 200), previously measured 9.8 x 5.6 cm. A hyperattenuating cystic lesion associated with the right kidney (series 2 image 210) likely represents a hemorrhagic or proteinaceous cyst. No suspicious lesions are identified in either kidney. There is marked urinary bladder wall thickening, compatible sequela of chronic bladder outlet obstruction. The prostate gland is enlarged. Metallic densities associated with the urinary bladder and prostate gland likely represent postsurgical changes. No intraperitoneal free air or free fluid. The stomach and small bowel are normal in course and caliber. There is mild fat stranding surrounding a large, inflamed appearing diverticulum arising from the proximal sigmoid colon. No adjacent mass or fluid collection to suggest complicated diverticulitis. The appendix is normal without appendiceal inflammation. The abdominal aorta is normal in course and caliber with mild calcified atherosclerosis of the abdominal aorta and its major branches. The portal vein, splenic vein, and superior mesenteric veins are patent without evidence of thrombosis. Scattered subcentimeter retroperitoneal and gastrohepatic lymph nodes are likely reactive in nature. No suspicious lymphadenopathy in the abdomen or pelvis. Multilevel degenerative changes of the spine. L2 vertebral body intraosseous hemangioma. 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 No suspicious lytic or blastic osseous lesions on bone windows. Procedure Note Mohamud Perez MD - 03/26/2022 EXAMINATION: Computed tomography of the chest, abdomen and pelvis with intravenous contrast HISTORY: Renal cell carcinoma status post left partial nephrectomy. TECHNIQUE: Transaxial computed tomographic images of the chest, abdomen and pelvis were obtained with intravenous contrast according to the standard protocol after the uneventful administration of 75 mL Opti-Ray 350 intravenous contrast. COMPARISON: CT of the abdomen without and with contrast dated 08/31/2021, MRI of the abdomen dated 12/13/2020, and MRI of the pelvis with prostate protocol dated 03/04/2020. FINDINGS: Chest: No pneumonia, pulmonary edema, pleural effusion, or pneumothorax. Scattered calcified nodules in the lungs are compatible sequela of old granulomatous disease. There is a new 5 mm right lower lobe pulmonary nodule in the anterior right lung base. Normal thyroid gland. Scattered subcentimeter supraclavicular and mediastinal lymph nodes are nonspecific, but likely reactive in nature. Calcified bilateral hilar and subcarinal lymph nodes, in keeping with sequela of old granulomatous disease. No lymphadenopathy in the chest. The heart size is normal. There is no pericardial effusion or pericardial thickening. The thoracic aorta is normal in course and caliber with mild calcified atherosclerosis of the thoracic aorta.. Abdomen/Pelvis: The liver is normal in size morphology. There are no suspicious focal liver lesions. No intrahepatic or extrahepatic biliary ductal dilation. The gallbladder is normal. The pancreas, spleen, and the right adrenal gland are normal. There is subtle nodular thickening of the left adrenal gland without a definite left adrenal gland nodule. Redemonstrated are postsurgical changes of partial left nephrectomy with mild interval improvement of stranding about the left kidney resection bed, in keeping with evolving postoperative changes. No definite enhancing solid nodularity or soft tissue thickening in the region of the left partial nephrectomy resection bed to suggest local recurrence. Multiple cystic lesions are again noted in both kidneys. The largest cystic lesion in the right kidney demonstrates minimal complexity with hyperattenuating internal septae and measures 9.5 x 5.5 cm (series 2 image 200), previously measured 9.8 x 5.6 cm. A hyperattenuating cystic lesion associated with the right kidney (series 2 image 210) likely represents a hemorrhagic or proteinaceous cyst. No suspicious lesions are identified in either kidney. There is marked urinary bladder wall thickening, compatible sequela of chronic bladder outlet obstruction. The prostate gland is enlarged. Metallic densities associated with the urinary bladder and prostate gland likely represent postsurgical changes. No intraperitoneal free air or free fluid. The stomach and small bowel are normal in course and caliber. There is mild fat stranding surrounding a large, inflamed appearing diverticulum arising from the proximal sigmoid colon. No adjacent mass or fluid collection to suggest complicated diverticulitis. The appendix is normal without appendiceal inflammation. The abdominal aorta is normal in course and caliber with mild calcified atherosclerosis of the abdominal aorta and its major branches. The portal vein, splenic vein, and superior mesenteric veins are patent without evidence of thrombosis. Scattered subcentimeter retroperitoneal and gastrohepatic lymph nodes are likely reactive in nature. No suspicious lymphadenopathy in the abdomen or pelvis. Multilevel degenerative changes of the spine. L2 vertebral body intraosseous hemangioma. 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 No suspicious lytic or blastic osseous lesions on bone windows. IMPRESSION: 1. Postsurgical changes of left partial nephrectomy without evidence of local recurrence. 2. New 5 mm right lower lobe pulmonary nodule, which is indeterminate. Recommend continued attention on follow-up imaging. 3. No definite evidence of metastatic disease in the abdomen or pelvis. 4. Findings of mild acute uncomplicated diverticulitis involving the proximal sigmoid colon. Clinical follow-up is recommended. Repeat imaging could be obtained if any symptoms worsen or do not resolve appropriately. 5. Circumferential urinary bladder wall thickening, which may represent sequela of chronic bladder outlet obstruction, however acute cystitis can have a similar appearance. Recommend correlation with urinalysis and symptoms of urinary tract infection. The NonCritical results were discussed with Dr. Parker by Dr. Franco on 03/26/22 at 4:45pm. Dictated by: Brent Franco M.D. The radiology attending physician has personally reviewed this study, and had reviewed and/or edited this written report and agrees with it. Electronically signed by: Mohamud Perez M.D. Mike Parker DO IMG CT PROCEDURES Final Result from Last 3 Months or Most Recently Relevant to Health Maintenance Insurance [facility] MEDICARE [facility] MEDICARE [facility] MEDICARE Advance Directives For more information, please contact: [phone] * Full Code (Latest Code Status on File) Date Activated Date Inactivated Comments 02/10/2025 4:14 PM 02/11/2025 5:09 PM * Full Code Date Activated Date Inactivated Comments 01/10/2024 3:16 PM 01/11/2024 7:33 PM * Full Code Date Activated Date Inactivated Comments 01/05/2022 6:53 PM 01/06/2022 5:44 PM * Full Code Date Activated Date Inactivated Comments 02/15/2021 2:16 PM 02/17/2021 7:25 PM Care Teams Route Sales Delivery Drivers Supervisor Relationship Specialty Start Date End Date Umseh Arzate DO PCP - General Internal Medicine 09/09/18 Alfa Blake MD Consulting Physician Urology 10/11/21 Kip Philip MD [address] [address] Consulting Physician Orthopedic Surgery 01/05/22
--- OUTSIDE RECORDS SUMMARY | 2025-04-26 20:38 | XMS_ITS | Clinical Summary ---
Author Organization [facility] Address [address] [place] [address] Phone Care Team Providers Care Manager Ambulatory Name Role Phone Umesh Arzate DO Primary Care Provider [phone] Allergies No known active allergies Medications testosterone [...] PCV) 2005 Influenza Vaccine (#1) 2025 Insurance [employer] MEDICARE Member Subscriber Plan / Payer (Ef fective 2020-Present) Name:David Elias Member ID:[id number] Relation to Subscriber:Self Name:David Elias Subscriber ID:[id number] Payer ID:Not on file Group ID:Not on file Type:Medicare Address: [facility] [address] [id number] Care Teams Manager Ambulatory Relationship Specialty Start Date End Date Umesh Arzate DO [address] [place] [address] PCP - General Internal Medicine 08/06/19
--- OUTSIDE RECORDS SUMMARY | 2025-04-26 20:38 | XMS_ITS | Clinical Summary ---
Author Organization [facility] Address [address] [place] [phone] Phone Care Team Providers Care Time Study Technologist Name Role Phone CaritoUmesh Tae Primary Care [...] series) 2015 INFLUENZA VACCINE (#1) 2025 Insurance [employer] ([email or web address])O OPEN ACCESS Care Teams Time Study Technologist Relationship Specialty Start Date End Date Umesh Arzate DO [facility] [address] [place] [address] PCP - General Internal Medicine 05/07/19
--- OUTSIDE RECORDS SUMMARY | 2025-04-26 20:38 | XMS_ITS | Encounter Summary ---
Author Organization [facility] Address [address] [facility] [address] [place] [address] Phone Care Team Providers Care Tobacco Roller Name Role Phone Umesh Arzate DO Primary Care Provider [phone] Alfa Blake MD Unavailable [phone] Kip Philip MD Unavailable [phone] Encounter Details Date Type Department Care Team (Late st Contact Info) Description 03/01/2025 Results Follow-Up [facility] Medicine Urology [address] [facility] [address] [place] [address] Alexander Kang MD [address] [facility] [place] [address] Urine culture Urine, bladder, Extra Urine Specimen, Extra Specimen Social History Tobacco Use Types Packs/Day Years Used Date Smoking Tobacco: Former Cigarettes 2 20 0 02/07/1970 - 02/07/1990 Smokeless Tobacco: Never AUDIT-C Answer Date Recorded Q1: How often [...] on file Legal 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
--- OUTSIDE RECORDS SUMMARY | 2025-04-26 20:38 | XMS_ITS ---
Author Organization [facility] Address [address] [place] [address] Care Team Providers Care Duty Engineer Name Role Phone Umesh Arzate DO Primary Care Provider [phone] Alfa Blake MD Unavailable [phone] Kip Philip MD Unavailable Active Problems Problem Noted Date Diagnosed Date BPH with obstruction/lower urinary tract symptom s 02/10/2025 Benign prostatic hyperplasia with lower urinary tract symptoms 01/01/2025 Bilateral hip joint arthritis 06/04/2024 DDD (degenerative disc disease), lumbar 06/04/20 Dorsalgia, unspecified 06/04/2024 Herniated nucleus pulposus, L5-S1 [...] (01/02/2022): Added automatically from request for surgery [id number] BPH with elevated PSA 09/26/2021 Overview (09/26/2021): Added automatically from request for surgery [id number] Retention of urine 05/11/2021 H/O atrial fibrillation without current medicati on 02/01/2021 Chronic anticoagulation 02/01/2021 Essential hypertension 02/01/2021 AF (paroxysmal atrial fibrillation) 02/01/2021 CKD (chronic kidney disease), stage III 02/02/20 21 Polycystic kidney disease 02/01/2021 Erythrocytosis 03/24/2018 Current Treatment and Therapy Plans No current plan information found. Past Treatment and Therapy Plans No past plan information found. Lifetime Dose Tracking * Chemical Lifetime Dose Automatic Entry Manual Entr y DLP 1,008 mGycm 1,008 mGycm 0 mGycm Resolved Problems Problem Noted Date Diagnosed Date Resolved Date Left renal mass 01/31/2021 09/23/2023
[2025-04-26 20:54] LABS: Troponin I < 0.012 ng/mL (0.000-0.034)
== END 2025-04-26 20:59 | disposition home or self-care (01) ==
LOC: ANHED 20:36
PROVIDERS: Emergency Medicine; Emergency Provider Emergency Medicine; PCP Internal Medicine
DX: I26.99 Other pulmonary embolism without acute cor pulmonale (principal); I48.91 Unspecified atrial fibrillation; Z79.82 Long term (current) use of aspirin; I12.9 Hypertensive chronic kidney disease with stage 1 through stage 4 chronic kidney disease, or unspecified chronic kidney disease; N18.30 Chronic kidney disease, stage 3 unspecified; E78.5 Hyperlipidemia, unspecified; R94.31 Abnormal electrocardiogram [ECG] [EKG]
CPT/HCPCS: 36415; 71046; 71275; 80053; 83690; 84484; 85025; 85380; 85610; 85730; 93005; 99284; A9270; Q9967

== ENCOUNTER 2025-04-29 10:21 | Outpatient (CLI) | payer MEDICARE, SELFPAY ==
--- OUTSIDE RECORDS SUMMARY | 2008-01-27 09:53 | XMS_ITS | Continuity of Care Document ---
Author Organization [facility] Address [address] [facility] [address] [facility] [address] [place] [address] Phone Care Team Providers Care Patient Navigator Name Role Phone Tosha Rosas Unavailable Unavailable Procedures Procedure Date Eye Exam & Treatment Refraction Advance Directives Directive Yes / No Effective Date File Name No Information Encounters Encounter Description Practice Location Reason(s) For Visit Diagnoses Date Provider Providers Copied on Encounter [facility], [address] [place] [address] [facility] [address], [place], [place], [address], tel:[phone] [facility] No Information [address] [facility] , [address], [place], [address], [place]. tel:[phone] Family History Family Member Type Diagnosis Age At Onset No Information Payers Payer name Insurance type Covered alliance party ID Authoriza titraci(s) [employer] Plan CI [id number] Social History Type Description Quantity Date Captured [...]
--- OUTSIDE RECORDS SUMMARY | 2024-08-13 08:30 | XMS_ITS | Continuity of Care Document ---
Author Organization [facility] Address [address] [place] [address] Phone Care Team Providers Care Loan Closer Name Role Phone Bronwyn DUPREEALLAN Agustín DE [...] Encounter Office/outpa tient visit,est, low [facility], [address], [id number], [place] tel:[phone] [facility] bilat knees (chief complaint) Pain in left kneePain in right kneeBilateral primary osteoarthriti s of knee 5 Bronwyn Randolph. [address] [facility], [address], [id number], [place]. tel:[phone] Referring Provider: Agustín Nunez, [facility] [address], [place], [address]. tel:[phone] Office/outpa tient visit,est, [facility], [address], [id number], [place] tel:[phone] [facility] Left hip (chief complaint) Presence of left artificial hip jointPain in right kneePain in left kneeBilateral primary osteoarthriti s of knee 4 Barnhartmoe Randolph. [address] [facility], [place], [place], [address], [place]. tel:[phone] Referring Provider: Agustín Barnhart Mayra, [address] [facility] [address] [facility], [place], [address]. tel:[phone] [facility], [address] [facility] [address], [place], [place], [address], [place] tel:[phone] [facility] Left hip (chief complaint) Presence of left artificial hip jointPain in left hip 4 Bronwyn Randolph. [address] [facility], [address] [address], [place], [place], [address], [place]. tel:[phone] Referring Provider: Mayank West, [address] [facility] [address], [place], [address]. tel:[phone] [facility], [address] [address], [place], [place], [address], [place] tel:[phone] [facility] Presence of left artificial hip joint 4 Cedrick Shin . [address] [facility], [facility] [address], [place], [place], [address], [place]. tel:[phone] Office/outpa tient visit,est, mod [facility], [address] [facility] [address], [place], [place], [address], [place] tel:[phone] [facility] left hip (chief complaint) Pain in left hipIdiopathic aseptic necrosis of left femur 4 Cedrick Shin . [address] [facility], [facility] [address], [place], [place], [address], [place]. tel:[phone] Referring Provider: Kip Vega, [address] [facility] [address] [facility], [place], [address]. tel:[phone] Office/outpa tient visit,est, [facility], [address] [address], [place], [place], [address], [place] tel:[phone] [facility] Right hip (chief complaint) Left hip (chief complaint) Presence of right artificial hip jointPain in left hipUnilateral primary osteoarthriti s, left hip 2 Bronwyn Randolph. [address] [facility], [address], [place], [place], [address], [place]. tel:[phone] Referring Provider: Agustín Nunez, [address] [facility] [address] [facility], [place], [address]. tel:[phone] [facility], [address] [address], [place], [place], [address], [place] tel:[phone] [facility] right hip (chief complaint) Pain in right hipPresence of right artificial hip joint 2 Bronwyn Randolph. [address] [facility], [facility] [address], [place], [place], [address], [place]. tel:[phone] Referring Provider: Agustín Nunez, [address] [facility] [address], [place], [address]. tel:[phone] [facility], [address] [address], [place], [place], [address], [place] tel:[phone] [facility] Displaced fracture of base of neck of right femur, initial encounter for closed fracture 2 Cedrick Shin . [address] [facility], [address], [place], [place], [address], [place]. tel:[phone] Office/outpa tient visit,new, [facility], [address] [facility] [address], [place], [place], [address], [place] tel:[phone] [facility] Right Hip (chief complaint) Pain in right hipDisplaced fracture of base of neck of right femur, initial encounter for closed fracture 2 Bronwyn Randolph. [address] [facility], [address], [place], [place], [address], [place]. tel:[phone] Referring Provider: Agustín Nunez, [address] [facility] [address], [place], [address]. tel:[phone] [facility], [address] [facility], [place], [address], [place] tel:[phone] [facility] No Information 2 Administrat rachid Provider. [address] [facility], [address], [place], [place], [address], [place]. tel:[phone] Family History Family Member Type Diagnosis Age At Onset Father Problem (finding) Heart Disease Immunizations Vaccine Date Status Comments influenza, injectable, quadrivalent, (3 years or older) administered Note: patient denies ; Source: Source Unspecified Payers Payer name Insurance type Covered constitution party ID Authordavida steven(s) Aetna Medicare CI [id number] Social History Type Description Quantity Date Captured Comments Alcohol Use Details Unknown Caffeine Use Details Unknown Tobacco Use Status No Information Smoking Status No Information Non-Smoking Tobacco Use Details : No Details Available : No Details Available Sex Male Vital Signs Date / Time: Height [...] assistive device. Left hip David presents to [facility] for ongoing evaluation of his left posterior total hip arthroplasty, date of surgery 01/10/2024. Denies injury, trauma or fall since last office visit. Denies fever, chills, generalized feelings of illness or malaise. He has completed physical therapy and does not do the exercises due to severe back and knee pain. He was seen by a pain management doctor in [place] who diagnosed him with arthritis of the [...] assistive device. Left hip David presents to [facility] for initial post operative evaluation of his [...] significant pain. Right hip David is a [facility] 66-year-old male who presents to the office [...] office visit. right hip David is a [facility] 66-year-old male who presents to the office [...] office visit. Right Hip David is a [facility] 66-year-old, 6 with 4 inch tall, 255 [...] our office as needed. Dictation completed with Talentoday software, grammatical variances and spelling errors may inadvertently occur. Related to Bilateral primary osteoarthritis of knee Pathophysiology of t he disease process was discussed. Conservative treatment options were discussed including cortisone injections, visco supplementation injections, physical therapy, the use of ice or heat, the use of ezae-jrg-zoaklqi nonsteroidal anti-inflammatory type medications and zqje-fzo-fwumzmv pain medications, and the use of bracing. [...] and discharged in stable condition.Dictation completed with Talentoday software, grammatical variances and spelling errors may [...] follow up in 8 weeks.Dictation completed with Talentoday software, grammatical variances and spelling errors may inadvertently occur. Related to Presence of left artificial hip joint We discussed in [place] the specifics of the operation consisting [...] be scheduled for total hip arthroplasty.Posterior approach. [facility]. Dual mobility Related to Idiopathic aseptic necrosis of left femur Assessments Type Assessment Date assessment Pain in left knee assessment Pain in right knee assessment Bilateral primary osteoarthritis of knee Patient Care Teams Name Effective Dates (start - stop) Status Members No Information
--- OUTSIDE RECORDS SUMMARY | 2025-04-29 11:28 | XMS_ITS | Clinical Summary ---
Author Organization [facility] Address [address] [place] [address] Phone Care Team Providers Care Foundry Molder Name Role Phone CaritoUmesh Tae Primary Care [...] series) 2015 INFLUENZA VACCINE (#1) 2025 Insurance [employer] OPEN ACCESS Care Teams Foundry Molder Relationship Specialty Start Date End Date Umesh Arzate DO [facility] [address] [place] [address] PCP - General Internal Medicine 05/07/19
--- OUTSIDE RECORDS SUMMARY | 2025-04-29 11:28 | XMS_ITS | Clinical Summary ---
Author Organization [facility] Address [address] [place] [address] Phone Care Team Providers Care Welfare Centre Manager Name Role Phone Umesh Arzate DO Primary Care Provider Allergies No known active allergies Medications testosterone [...] PCV) 2005 Influenza Vaccine (#1) 2025 Insurance [employer] MEDICARE Member Subscriber Plan / Payer (Ef fective 2020-Present) Name:David Elias Member ID:[id number] Relation to Subscriber:Self Name:David Elias Subscriber ID:[id number] Payer ID:Not on file Group ID:Not on file Type:Medicare Address: [facility] [address] [id number] Care Teams Welfare Centre Manager Relationship Specialty Start Date End Date Umesh Arzate DO [address] [place] [address] PCP - General Internal Medicine 08/06/19
--- OUTSIDE RECORDS SUMMARY | 2025-04-29 11:28 | XMS_ITS | Patient Health Record ---
Author Organization [facility] Address [address] [facility] [place] [address] Care Team Providers Care Crew Lead Name Role Phone Gray Fang Unavailable [phone] Reason For Referral No Information Medications Medication [...] W/U Status Risk Notes Problem Lumbosacral radiculopathy (4068034) Radiculopathy, lumbosacral region (M54.17) Active confirmed Problem Degenerative disc disease (94164952) DDD (degenerative disc disease), lumbar (M51.36) Active confirmed Problem Displacement of lumbar intervertebral disc without myelopathy (27615064) Herniated nucleus pulposus, L5-S1 (M51.27) Active confirmed Problem Bilateral arthritis of hip (5368613808095677) Bilateral hip joint arthritis (M16.0) Active confirmed Plan Of Treatment No Information Medications Administered Medication Instructions Date of Administration Dosage Notes Bilateral L5/S1 SESI 07/17/2019
[2025-04-29 17:03] LABS: Hematocrit 48.9 % (42.0-52.0); Hemoglobin 15.9 g/dL (14.0-18.0); Immature Granulocyte Percent A 0.5 % (0-0.5); Lymphocytes Absolute Auto 1.32 K/mm3 (0.9-3.2); Mean Corpuscular HGB Conc 32.5 g/dl (32-36); Mean Corpuscular Hemoglobin 29.7 pg (26-34); Mean Corpuscular Volume 91.2 fl (80-100); Nucleated Red Blood Cells Absolute Auto 0.000 K/mm3 (0.0-0.012); Nucleated Red Blood Cells Perc 0.0 % (0.0-0.2); Platelet Count Result 229 k/mm3 (150-375); Red Blood Count 5.36 M/mm3 (4.6-6.20); White Blood Count 8.1 K/mm3 (4.5-10.0)
[2025-04-29 17:20] LABS: Alanine Aminotransferase 28 U/L (6-50); Albumin Level 4.4 g/dL (3.5-5.1); Alkaline Phosphatase 71 U/L (38-126); Anion Gap 9 mmol/L (4-12); Aspartate Amino Transferase 46 U/L (17-59); Bilirubin,Total 0.6 mg/dL (0.2-1.3); Blood Urea Nitrogen 30 mg/dL (9-20); Calcium 9.3 mg/dL (8.4-10.2); Carbon Dioxide 25 mmol/L (22-30); Chloride 103 mmol/L (98-107); Estimated Glomerular Filt Rate 34; Glucose 103 mg/dL (65-110); Potassium 4.3 mmol/L (3.4-5.0); Sodium 137 mmol/L (137-145); Total Protein 7.5 g/dL (6.3-8.2)
== END 2025-04-29 10:22 | disposition home or self-care (01) ==
LOC: ANHGOSHLAB 10:21
PROVIDERS: PCP Internal Medicine; Visit Provider Clinical Nurse Specialist
DX: I26.99 Other pulmonary embolism without acute cor pulmonale (principal)
CPT/HCPCS: 36415; 80053; 85025

== ENCOUNTER 2025-05-25 15:19 | Outpatient (CLI) | payer MEDICARE, SELFPAY ==
--- NOTE | ~2025-05-25 | XR_ITS ---
EXAMINATION: XR chest 2V, 05/25/2025 15:26 CDT HISTORY: Shortness of breath x 1 month, cough, congestion COMPARISON: No comparisons available. Technique: 2 views obtained. Findings: The lungs are clear, no effusion. No pneumothorax. Heart is normal size. Mediastinal and hilar contours are within normal limits. Bony thorax no acute abnormality. Impression: No acute cardiopulmonary abnormality. Reviewed, dictated and finalized at location P. Impression: No acute cardiopulmonary abnormality.
== END 2025-05-25 15:20 | disposition home or self-care (01) ==
LOC: GOSHIMG 15:20
PROVIDERS: Visit Provider Clinical Nurse Specialist
DX: R06.02 Shortness of breath (principal); R05.9 Cough, unspecified
CPT/HCPCS: 71046

== ENCOUNTER 2025-06-11 08:58 | Outpatient (CLI) | payer MEDICARE, SELFPAY ==
--- OUTSIDE RECORDS SUMMARY | 2008-01-27 08:53 | XMS_ITS | Continuity of Care Document ---
Author Organization [facility] Address [address] [facility] [address] [facility] [address] [place] [address] Phone Care Team Providers Care Marketing Support Assistant Name Role Phone Tosha Rosas Unavailable Unavailable Procedures Procedure Date Eye Exam & Treatment Refraction Advance Directives Directive Yes / No Effective Date File Name No Information Encounters Encounter Description Practice Location Reason(s) For Visit Diagnoses Date Provider Providers Copied on Encounter [facility], [address] [facility] [address], [place], [place], [address], tel:[phone] [facility] No Information [address] [facility] , [address], [place], [address], [place]. tel:[phone] Family History Family Member Type Diagnosis Age At Onset No Information Payers Payer name Insurance type Covered green party ID Authoriza titraci(s) [employer] Plan CI [id number] Social History Type Description Quantity Date Captured [...]
--- OUTSIDE RECORDS SUMMARY | 2024-08-13 07:30 | XMS_ITS | Continuity of Care Document ---
Author Organization [facility] Address [address] [place] [address] Phone Care Team Providers Care Seat Joiner Chainstitch Name Role Phone Bronwyn DUPREEALLAN Agustín DE [...] Encounter Office/outpa tient visit,est, low [facility], [address], [id number], [place] tel:[phone] [facility] bilat knees (chief complaint) Pain in left kneePain in right kneeBilateral primary osteoarthriti s of knee 5 Bronwyn Randolph. [address] [facility], [address], [id number], [place]. tel:[phone] Referring Provider: Agsutín Nunez, [facility] [address], [place], [address]. tel:[phone] Office/outpa tient visit,est, [facility], [address], [id number], [place] tel:[phone] [facility] Left hip (chief complaint) Presence of left artificial hip jointPain in right kneePain in left kneeBilateral primary osteoarthriti s of knee 4 Barnhartmoe Randolph. [address] [facility], [address], [place], [place], [address], [place]. tel:[phone] Referring Provider: Agustín Barnhart Mayra, [address] [facility] [address] [facility], [place], [address]. tel:[phone] [facility], [address] [facility] [address], [place], [place], [address], [place] tel:[phone] [facility] Left hip (chief complaint) Presence of left artificial hip jointPain in left hip 4 Bronwyn Randolph. [address] [facility], [address] [address], [place], [place], [id number], [place]. tel:[phone] Referring Provider: Mayank West, [address] [facility] [address], [place], [address]. tel:[phone] [facility], [address] [address], [place], [place], [address], [place] tel:[phone] [facility] Presence of left artificial hip joint 4 Cedrick Shin . [address] [facility], [facility] [address], [place], [place], [address], [place]. tel:[phone] Office/outpa tient visit,est, mod [facility], [address] [facility] [address], [place], [place], [address], [place] tel:[phone] [facility] left hip (chief complaint) Pain in left hipIdiopathic aseptic necrosis of left femur 4 Cedrick Shin . [address] [facility], [facility] [address], [place], [place], [address], [place]. tel:[phone] Referring Provider: Kip Vega, [address] [facility] [address] [facility], [place], [address]. tel:[phone] Office/outpa tient visit,est, [facility], [address] [address], [place], [place], [address], [place] tel:[phone] [facility] Right hip (chief complaint) Left hip (chief complaint) Presence of right artificial hip jointPain in left hipUnilateral primary osteoarthriti s, left hip 2 Bronwyn Randolph. [address] [facility], [address], [place], [place], [address], [place]. tel:[phone] Referring Provider: Agustín Nunez, [address] [facility] [address] [facility], [place], [address]. tel:[phone] [facility], [address] [address], [place], [place], [address], [place] tel:[phone] [facility] right hip (chief complaint) Pain in right hipPresence of right artificial hip joint 2 Bronwyn Randolph. [address] [facility], [facility] [address], [place], [place], [address], [place]. tel:[phone] Referring Provider: Agustín Nunez, [address] [facility] [address], [place], [address]. tel:[phone] [facility], [address] [address], [place], [place], [address], [place] tel:[phone] [facility] Displaced fracture of base of neck of right femur, initial encounter for closed fracture 2 Cedrick Shin . [address] [facility], [address], [place], [place], [address], [place]. tel:[phone] Office/outpa tient visit,new, [facility], [address] [facility] [address], [place], [place], [address], [place] tel:[phone] [facility] Right Hip (chief complaint) Pain in right hipDisplaced fracture of base of neck of right femur, initial encounter for closed fracture 2 Bronwyn Randolph. [address] [facility], [address], [place], [place], [address], [place]. tel:[phone] Referring Provider: Agustín Nunez, [address] [facility] [address], [place], [address]. tel:[phone] [facility], [address] [place] [address], [id number], [place] tel:[phone] [facility] No Information 2 Administrat rachid Provider. [address] [facility], [address], [place], [place], [address], [place]. tel:[phone] Family History Family Member Type Diagnosis Age At Onset Father Problem (finding) Heart Disease Immunizations Vaccine Date Status Comments influenza, injectable, quadrivalent, (3 years or older) administered Note: patient denies ; Source: Source Unspecified Payers Payer name Insurance type Covered republican ID Authordavida steven(s) Aetna Medicare CI [id number] Social History Type Description Quantity Date Captured [...] assistive device. Left hip David presents to [facility] for ongoing evaluation of his left posterior total hip arthroplasty, date of surgery 01/10/2024. Denies injury, trauma or fall since last office visit. Denies fever, chills, generalized feelings of illness or malaise. He has completed physical therapy and does not do the exercises due to severe back and knee pain. He was seen by a pain management doctor in [place] who diagnosed him with arthritis of the [...] assistive device. Left hip David presents to [facility] for initial post operative evaluation of his [...] significant pain. Right hip David is a [facility] 66-year-old male who presents to the [...] office visit. right hip David is a [facility] 66-year-old male who presents to the [...] office visit. Right Hip David is a [facility] 66-year-old, 6 with 4 inch tall, [...] our office as needed. Dictation completed with eHarmony software, grammatical variances and spelling errors may inadvertently occur. Related to Bilateral primary osteoarthritis of knee Pathophysiology of t he disease process was discussed. Conservative treatment options were discussed including cortisone injections, visco supplementation injections, physical therapy, the use of ice or heat, the use of abcc-gpw-niteuqc nonsteroidal anti-inflammatory type medications and otee-ofs-ijgptqb pain medications, and the use of bracing. [...] and discharged in stable condition.Dictation completed with eHarmony software, grammatical variances and spelling errors may [...] follow up in 8 weeks.Dictation completed with eHarmony software, grammatical variances and spelling errors may [...] be scheduled for total hip arthroplasty.Posterior approach. [facility]. Dual mobility Related to Idiopathic aseptic necrosis of left femur Assessments Type Assessment Date assessment Pain in left knee assessment Pain in right knee assessment Bilateral primary osteoarthritis of knee Patient Care Teams Name Effective Dates (start - stop) Status Members No Information
--- NOTE | ~2025-06-11 | CT_ITS ---
CTA CHEST CLINICAL HISTORY: I26.99 - Other pulmonary embolism without acute cor pulmo... . COMPARISON: CTA chest 04/26/2025 TECHNIQUE: Helical CTA performed from thoracic inlet to upper abdomen 100 mL Omnipaque 350 Coronal, sagittal reformats. Multiplanar MIPS CT images acquired with automatic exposure control for dose reduction DLP: 830 mGy-cm FINDINGS: Respiratory motion artifact. Pulmonary arteries: No PE. Thoracic Aorta: No dissection or aneurysm. Heart/pericardium: Mild coronary artery calcification. Cardiomegaly. RV/LV ratio: Normal. Lungs/Pleura: Clear. Tracheobronchial tree: Patent. Nodes: No enlarged nodes. Hilar calcifications. Bones: No acute bony abnormality. Soft tissues: Unremarkable. Visualized upper abdomen: Renal cysts. IMPRESSION: 1. No PE or other acute cardiopulmonary findings. 2. Review of prior CTA performed. Previously reported pulmonary emboli felt more likely to be artifact rather than PE. Prior scan was probably negative for PE. Reviewed, dictated and finalized at location R. BODY INSPECTOR IMPRESSION: 1. No PE or other acute cardiopulmonary findings. 2. Review of prior CTA performed. Previously reported pulmonary emboli felt mo re likely to be artifact rather than PE. Prior scan was probably negative for P E.
[2025-06-11 09:22] LABS: Estimated Glomerular Filt Rate 31
--- OUTSIDE RECORDS SUMMARY | 2025-06-11 09:34 | XMS_ITS | Clinical Summary ---
Author Organization [facility] Address [address] [place] [address] Phone Care Team Providers Care Run Lead Name Role Phone Umesh Arzate DO Primary [...] PCV) 2005 Influenza Vaccine (#1) 2025 Insurance [employer] MEDICARE Member Subscriber Plan / Payer (Ef fective 2020-Present) Name:David Elias Member ID:[id number] Relation to Subscriber:Self Name:David Elias Subscriber ID:[id number] Payer ID:Not on file Group ID:Not on file Type:Medicare Address: [facility] [address] [phone] Care Teams Run Lead Relationship Specialty Start Date End Date Umesh Arzate DO [address] [place] [address] PCP - General Internal Medicine 08/06/19
--- OUTSIDE RECORDS SUMMARY | 2025-06-11 09:34 | XMS_ITS | Patient Health Record ---
Author Organization [facility] Address [address] [facility] [place] [address] Care Team Providers Care Tours Captain Name Role Phone Gray Fang Unavailable [phone] Reason For Referral No Information Medications Medication [...] W/U Status Risk Notes Problem Lumbosacral radiculopathy (9526096) Radiculopathy, lumbosacral region (M54.17) Active confirmed Problem Degenerative disc disease (90719820) DDD (degenerative disc disease), lumbar (M51.36) Active confirmed Problem Displacement of lumbar intervertebral disc without myelopathy (17499174) Herniated nucleus pulposus, L5-S1 (M51.27) Active confirmed Problem Bilateral arthritis of hip (6693987381243754) Bilateral hip joint arthritis (M16.0) Active confirmed Plan Of Treatment No Information Medications Administered Medication Instructions Date of Administration Dosage Notes Bilateral L5/S1 SESI 07/17/2019
--- OUTSIDE RECORDS SUMMARY | 2025-06-11 09:34 | XMS_ITS | Clinical Summary ---
Author Organization [facility] Address [address] [place] [address] Phone Care Team Providers Care Cisco Certified Network Professional Name Role Phone CaritoUmesh Tae JAVIER Primary Care Provider Social History Tobacco Use Types Packs/Day Years Used Date Smoking Tobacco: Never Assessed Sex and Gender Information Value Date Recorded Sex Assigned at Not on file Legal Sex Male 1:44 PM CDT Gender Identity Not on file Sexual Orientation Not on file Plan of Treatment Health Maintenance Due Date Last Done Comments Pre-Diabetes and Diabetes Screening 1955 DTAP/TDAP/TD VACCINES (1 - Tdap) 1974 COLORECTAL SCREENING 2000 Colorectal Cancer Screening 2000 FIT-DNA Q 3 years 2000 FIT/FOBT Q 1 year 2000 Flex Sig/CT Colonography Q 5 years 2000 PNEUMOCOCCAL VACCINE 50+ YEARS (1 of 1 - PCV) 07/12/20 05 RSV VACCINE (60+ or ) (1 - Risk 50-74 years 1-dose series) 2005 ZOSTER VACCINE (1 of 2) 2005 INFLUENZA VACCINE (#1) 2025 Insurance [employer] OPEN ACCESS Care Teams [employer] Certified Network Professional Relationship Specialty Start Date End Date Umesh Arzate DO [address] [facility] [address] [place] [address] PCP - General Internal Medicine 05/07/19
--- OUTSIDE RECORDS SUMMARY | 2025-06-11 09:34 | XMS_ITS ---
Author Organization [facility] Address [address] [place] [address] Care Team Providers Care Director Of Content Marketing Name Role Phone Umesh Arzate DO Primary Care Provider Alfa Blake MD Unavailable [phone] Kip Philip MD Unavailable Active Problems Problem [...] (01/02/2022): Added automatically from request for surgery [id number] BPH with elevated PSA 09/26/2021 Overview (09/26/2021): Added automatically from request for surgery [id number] Retention of urine 05/11/2021 H/O atrial fibrillation without current medicati on 02/01/2021 Chronic anticoagulation 02/01/2021 Essential hypertension 02/01/2021 AF (paroxysmal atrial fibrillation) 02/01/2021 CKD (chronic kidney disease), stage III 02/02/20 Polycystic kidney disease 02/01/2021 Erythrocytosis 03/24/2018 Current [...]
--- OUTSIDE RECORDS SUMMARY | 2025-06-11 09:34 | XMS_ITS | Clinical Summary ---
Author Organization [facility] 8 [facility] Address [address] [place] [address] Care Team Providers Care Pool Manager Name Role Phone Umesh Arzate DO Primary Care Provider Alfa Blake MD Unavailable [phone] Kip Philip MD Unavailable [phone] Allergies Active Allergy Reactions Criticality Noted Date [...] (01/02/2022): Added automatically from request for surgery [id number] BPH with elevated PSA 09/26/2021 Overview (09/26/2021): Added automatically from request for surgery [id number] Retention of urine 05/11/2021 H/O atrial fibrillation without current medicati on 02/01/2021 Chronic anticoagulation 02/01/2021 Essential hypertension 02/01/2021 AF (paroxysmal atrial fibrillation) 02/01/2021 CKD (chronic kidney disease), stage III 02/02/20 21 Polycystic kidney disease 02/01/2021 Erythrocytosis 03/24/2018 Resolved Problems Problem Noted Date Diagnosed Date Resolved Date Left renal mass 01/31/2021 09/23/2023 Encounters Date Type Department Care Team Description 05/27/2025 10:20 AM CDT Office Visit [facility] Medicine Urology [address] [facility] [address] [place] [address] Alexander Kang MD Benign prostatic hyperplasia with weak urinary stream (Primary Dx); Retention of urine 05/20/2025 Telephone [facility] Medicine Urology [address] [facility] [address] [place] [address] Alexander Kang MD from Last 3 Months Surgical History Surgery [...] on file Legal Sex 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 Gender Identity Male 07/11/2021 8:42 AM CHEESEMAKER HELPER Sexual Orientation Straight 07/11/2021 8: 42 AM CHEESEMAKER HELPER Last Filed Vital Signs Vital Sign Reading [...] Screening 1973 Pneumococcal vaccine 65+ (1 of 2 - PCV) 1974 Zoster Vaccine (1 of 2) 2005 Well Visit 65+ 2020 Prostate Cancer Screening-PSA 03/12/2025, 09/24/2022, 04/16/2022, Additional history exists Covid-19 Vaccine (3 - 2024-2 6 season) 2025 03/31/2021, 03/06/2021 Influenza Vaccine (#1) 2025 12/09/2023 Fall Risk Assessment 02/11/2026 02/11/2025 Abdominal Aortic Aneurysm (A AA) Screen Completed 03/26/2022, 08/31/2021 Medical Devices Implanted Type Area Bobbin Sorter Device Identifier Shelf Expiration Date Model / Serial / Lot Neotract Inc [id number] Urolift Implant Urological - [id number] Implanted:Qty: 4 on 10/11/2021 by Alfa Blake MD at [facility] N/A: Urethra [employer] 08/22/2022 ZT793-6 / / [id number] [employer] Inc [id number] Urolift Implant Urological - [id number] Implanted:Qty: 2 on 10/11/2021 by Alfa Blake MD at [facility] N/A: Urethra [employer] 02/20/2023 AE220-5 / / [id number] [employer] Mdm 48mm Hip G Liner Acetabular Cocr 28mm Femoral Head [id number] - [id number] Implanted:Qty: 1 on 01/05/2022 by Kip Philip MD at [facility] Right: Hip [employer] [id number] 04/19/2026 [id number] / / [id number] [employer] 6284-2223 Screw Bone Trident Ii L20mm Od6.5mm Low Profile Hexagonal Sterile - [id number] Implanted:Qty: 1 on 01/05/2022 by Kip Philip MD at [facility] Right: Hip [employer] [id number] 11/01/2026 1152-7585 / / [id number] [employer] 2034-6596 Screw Bone Trident Ii L40mm Od6.5mm Low Profile Hexagonal Sterile - [id number] Implanted:Qty: 1 on 01/05/2022 by Kip Philip MD at [facility] Right: Hip [employer] [id number] 08/29/2026 8745-9386 / / [id number] [employer] 702-04-60g Shell Acetabular Trident Ii Tritanium G Od60mm Hip 5 Screw Hole Cluster Sterile - [id number] Implanted:Qty: 1 on 01/05/2022 by Kip Philip MD at [facility] Right: Hip [employer] [id number] 07/24/2026 702-04-60G / / [id number] [employer] V40 28mm Hip +4mm Offset Taper Head Femoral Biolox Delta 6570-0-228 - [id number] Implanted:Qty: 1 on 01/05/2022 by Kip Philip MD at [facility] Right: Hip [employer] [id number] 06/22/2026 6570-0-228 / / [id number] [employer] 7236-2-854 Insert Nondenominational Adm X3 - [id number] Implanted:Qty: 1 on 01/05/2022 by Kip Philip MD at [facility] Right: Hip [employer] [id number] 02/13/2026 7236-2-854 / / [id number] [employer] Accolade 111mm 35mm Modular Hip 132d 6 Taper Stem Femoral Sterile [id number] - [id number] Implanted:Qty: 1 on 01/05/2022 by Kip Philip MD at [facility] Right: Hip [employer] [id number] 11/20/2025 [id number] / / [id number] [employer] Screw Bone Trident Ii L35mm Od6.5mm Low Profile Hexagonal Sterile 1090-0597 - [id number] Implanted:Qty: 1 on 01/10/2024 by Kip Philip MD at [facility] Left: Hip [employer] [id number] 08/29/2028 4655-3728 / / [id number] [employer] Accolade Ii V40 117mm 37mm Hip 132d 8 47mm Offset Stem Femoral 8555-9938 - [id number] Implanted:Qty: 1 on 01/10/2024 by Kip Philip MD at [facility] Left: Hip [employer] [id number] 11/16/2025 1374-4531 / / [id number] [employer] Insert Nondenominational Adm X3 54 7236-2-854 - [id number] Implanted:Qty: 1 on 01/10/2024 by Kip Philip MD at [facility] Left: Hip [employer] [id number] 10/31/2026 7236-2-854 / / [id number] [employer] Shell Acetabular Trident Ii Tritanium G Od60mm Hip 5 Screw Hole Cluster Sterile 702-04-60g - [id number] Implanted:Qty: 1 on 01/10/2024 by Kip Philip MD at [facility] Left: Hip [employer] [id number] 10/02/2028 702-04-60G / / [id number] [employer] V40 28mm Hip +4mm Offset Taper Head Femoral Biolox Delta 6570-0-228 - [id number] Implanted:Qty: 1 on 01/10/2024 by Kip Philip MD at [facility] Left: Hip [employer] [id number] 09/14/2028 6570-0-228 / / [id number] [employer] Mdm 48mm Hip G Liner Acetabular Cocr 28mm Femoral Head [id number] - [id number] Implanted:Qty: 1 on 01/10/2024 by Kip Philip MD at [facility] Left: Hip [employer] [id number] 04/02/2027 [id number] / / [id number] Procedures Procedure Name Priority Date/Time Associated Diagnosis Comments PSA DIAGNOSTIC Routine 03/12/2023 3:45 PM CDT BPH with elevated PSA CT CHEST ABDOMEN PELVIS W CONTRAST Schedule Routine, Read Routine (OP Routine) 03/26/2022 1:22 PM CDT Renal cancer, left (HCC) from Last 3 Months or Most Recently Relevant to Health Maintenance Results * (ABNORMAL) PSA diagnostic (03/12/2023 3:45 PM CDT) PSA-Total 7.16(H) <=5.40 ng/mL [facility] Comment: Interpretive Data AGE SEX REFERENCE INTERVAL [...] BLOOD ORDERABLES Final Result Performing Organization Address City[facility] Co id Phone Number [facility] [address] [facility] [address] * CT Chest Abdomen Pelvis W Contrast [...] Electronically signed by: Mohamud Perez M.D. Mike Alexy Parker DO IMG CT PROCEDURES Final Result from Last 3 Months or Most Recently Relevant to Health Maintenance Insurance [facility] MEDICARE [facility] MEDICARE T MEDICARE Advance Directives For more information, please contact: [phone] * Full Code (Latest Code Status on File) Date Activated Date Inactivated Comments 02/10/2025 4:14 PM 02/11/2025 5:09 PM * Full Code Date Activated Date Inactivated Comments 01/10/2024 3:16 PM 01/11/2024 7:33 PM * Full Code Date Activated Date Inactivated Comments 01/05/2022 6:53 PM 01/06/2022 5:44 PM * Full Code Date Activated Date Inactivated Comments 02/15/2021 2:16 PM 02/17/2021 7:25 PM Care Teams Pool Manager Relationship Specialty Start Date End Date Umesh Arzate DO PCP - General Internal Medicine 09/09/18 Alfa Blake MD Consulting Physician Urology 10/11/21 Kip Philip MD [address] [place] [address] Consulting Physician Orthopedic Surgery 01/05/22
== END 2025-06-11 08:59 | disposition home or self-care (01) ==
PROVIDERS: PCP Internal Medicine; Visit Provider Clinical Nurse Specialist
DX: I26.99 Other pulmonary embolism without acute cor pulmonale (principal)
CPT/HCPCS: 71275; Q9967

== ENCOUNTER 2025-06-16 16:03 | Outpatient (CLI) | payer MEDICARE, SELFPAY ==
--- OUTSIDE RECORDS SUMMARY | 2008-01-27 08:53 | XMS_ITS | Continuity of Care Document ---
Author Organization [facility] Address [address] [facility] [address] [facility] [address] [place] [address] Phone Care Team Providers Care Panel Edge Sealer Name Role Phone Tosha Rosas Unavailable Unavailable Procedures Procedure Date Eye Exam & Treatment Refraction Advance Directives Directive Yes / No Effective Date File Name No Information Encounters Encounter Description Practice Location Reason(s) For Visit Diagnoses Date Provider Providers Copied on Encounter [facility], [address] [place] [address] [facility] [address], [place], [place], [id number], tel:[phone] [facility] No Information [address] [facility] , [address], [place], [address], [place]. tel:[phone] Family History Family Member Type Diagnosis Age At Onset No Information Payers Payer name Insurance type Covered republican ID Authoriza titraci(s) [employer] Plan CI [id number] Social History Type Description Quantity Date Captured Comments Sex Male Smoking Status No Information Chief Complaint And Reason For Visit No Information Reason For Referral Reason For Referral No Information History Of Present Illness Encounter Date Complaint History Of Prese nt Illness No Information Functional Status Date Functional Assessmen t No Information Instructions Date Instruction Additional Infor mation No Information Assessments Type Assessment Date No Information Patient Care Teams Name Effective Dates (start - stop) Status Members No Information
--- OUTSIDE RECORDS SUMMARY | 2024-08-13 07:30 | XMS_ITS | Continuity of Care Document ---
Author Organization [facility] Address [address] [place] [address] Phone Care Team Providers Care Fitness Coordinator Name Role Phone Bronwyn DUPREEALLAN Agustín DE JESUS Unavailable Unavailab le Allergies, Adverse Reactions, Alerts Substance Reaction Status Criticality No Known Allergies Active No Inform ation Medications Medication Instructions Dosage Effective Dates (start - stop) Status Comments amlodipine 2.5 mg tablet take 1 tablet by oral route every day 2.5 MG - Active EZETIMIBE (unknown strength) Not Available - Active LOSARTAN POTASSIUM (unknown strength) Not Available - Active ASPIRIN EC (unknown strength) Not Available - Active DILTIAZEM HCL (unknown strength) Not Available - Active TESTOSTERONE (unknown strength) Not Available - Active Vitamin B-12 500 mcg tablet - Active VITAMIN D3 (unknown strength) Not Available - Active Procedures Procedure Date BMI Documented Above Normal Limit F/U Pl an Doc Kenalog 40mg/mL Asp/inject major joint or bursa w/o US g uidance Kenalog 40mg/mL Asp/inject major joint or bursa w/o US g uidance Office/outpatient visit,est, low 2024 Asp/inject major joint or bursa w/o US g uidance Kenalog 40mg/mL X-ray Exam Hip Unilat With Pelvis When P erf 2-3 View Global/Postop followup visit Asp/inject major joint or bursa w/o US g uidance Kenalog 40mg/mL Office/outpatient visit,est, mod 2023 X-ray Exam Hip Unilat With Pelvis When P erf 2-3 View Global/Postop followup visit X-ray Exam Hip Unilat With Pelvis When P erf 2-3 View BMI Documented Above Normal Limit F/U Pl an Doc Office/outpatient visit,est, mod 2023 X-ray Exam Dale Hips With Pelvis 3-4 View s Global/Postop followup visit Office/outpatient visit,est, mod 2021 X-ray Exam Hip Unilat With Pelvis When P erf 2-3 View Global/Postop followup visit X-ray Exam Hip Unilat With Pelvis When P erf 2-3 View Office/outpatient visit,new, mod 2021 Xray Copy Advance Directives Directive Yes / No Effective Date File Name No Information Encounters Encounter Description Practice Location Reason(s) For Visit Diagnoses Date Provider Providers Copied on Encounter Office/outpa tient visit,est, low [facility], [address], [id number], [place] tel:[phone] [facility] bilat knees (chief complaint) Pain in left kneePain in right kneeBilateral primary osteoarthriti s of knee 5 Bronwyn Randolph. [address] [facility], [address], [id number], [place]. tel:[phone] Referring Provider: Agustín Nunez, [facility] [address], [place], [address]. tel:[phone] Office/outpa tient visit,est, [facility], [address], [id number], [place] tel:[phone] [facility] Left hip (chief complaint) Presence of left artificial hip jointPain in right kneePain in left kneeBilateral primary osteoarthriti s of knee 4 Barnhartmoe Randolph. [address] [facility], [address], [place], [place], [id number], [place]. tel:[phone] Referring Provider: Agustín Barnhart Mayra, [address] [facility] [address] [facility], [place], [address]. tel:[phone] [facility], [address] [facility] [address], [place], [place], [id number], [place] tel:[phone] [facility] Left hip (chief complaint) Presence of left artificial hip jointPain in left hip 4 Bronwyn Randolph. [address] [facility], [address] [address], [place], [place], [id number], [place]. tel:[phone] Referring Provider: Mayank West, [address] [facility] [address], [place], [address]. tel:[phone] [facility], [address] [address], [place], [place], [id number], [place] tel:[phone] [facility] Presence of left artificial hip joint 4 Cedrick Shin . [address] [facility], [facility] [address], [place], [place], [id number], [place]. tel:[phone] Office/outpa tient visit,est, mod [facility], [address] [facility] [address], [place], [place], [id number], [place] tel:[phone] [facility] left hip (chief complaint) Pain in left hipIdiopathic aseptic necrosis of left femur 4 Cedrick Shin . [address] [facility], [facility] [address], [place], [place], [id number], [place]. tel:[phone] Referring Provider: Kip Vega, [address] [facility] [address] [facility], [place], [address]. tel:[phone] Office/outpa tient visit,est, [facility], [address] [address], [place], [place], [id number], [place] tel:[phone] [facility] Right hip (chief complaint) Left hip (chief complaint) Presence of right artificial hip jointPain in left hipUnilateral primary osteoarthriti s, left hip 2 Bronwyn Randolph. [address] [facility], [address], [place], [place], [id number], [place]. tel:[phone] Referring Provider: Agustín Nunez, [address] [facility] [address] [facility], [place], [address]. tel:[phone] [facility], [address] [address], [place], [place], [id number], [place] tel:[phone] [facility] right hip (chief complaint) Pain in right hipPresence of right artificial hip joint 2 Bronwyn Randolph. [address] [facility], [facility] [address], [place], [place], [id number], [place]. tel:[phone] Referring Provider: Agustín Nunez, [address] [facility] [address], [place], [address]. tel:[phone] [facility], [address] [address], [place], [place], [id number], [place] tel:[phone] [facility] Displaced fracture of base of neck of right femur, initial encounter for closed fracture 2 Cedrick Shin . [address] [facility], [address], [place], [place], [id number], [place]. tel:[phone] Office/outpa tient visit,new, [facility], [address] [facility] [address], [place], [place], [id number], [place] tel:[phone] [facility] Right Hip (chief complaint) Pain in right hipDisplaced fracture of base of neck of right femur, initial encounter for closed fracture 2 Bronwyn Randolph. [address] [facility], [address], [place], [place], [id number], [place]. tel:[phone] Referring Provider: Agustín Nunez, [address] [facility] [address], [place], [address]. tel:[phone] [facility], [address] [facility] [address] [place] [address], [id number], [place] tel:[phone] [facility] No Information 2 Administrat rachid Provider. [address] [facility], [address], [place], [place], [id number], [place]. tel:[phone] Family History Family Member Type Diagnosis Age At Onset Father Problem (finding) Heart Disease Immunizations Vaccine Date Status Comments influenza, injectable, quadrivalent, (3 years or older) administered Note: patient denies ; Source: Source Unspecified Payers Payer name Insurance type Covered constitution party ID Authordavida steven(s) [employer] Medicare CI [id number] Social History Type Description Quantity Date Captured Comments Alcohol Use Details Unknown Caffeine Use Details Unknown Tobacco Use Status No Information Smoking Status No Information Non-Smoking Tobacco Use Details : No Details Available : No Details Available Sex Male Gender Identity Male Vital Signs Date / Time: Height Weight BMI Pulse Rate Blood Pressure Temperature Respiratory Rate Body Surface Area Head Circumference Head Circ. Percentile Wt./Helio. Percentile BMI percentile Pulse Ox Inhaled Ox 1:10 PM 76.00 in 124.738 kg (275.00 lbs) 33.4 7 kg/m eter (2) Chief Complaint And Reason For Visit From encounter dated '08/13/2024 13:30'. bilat knees (chief complaint). Description: David presents to the office today for treatment of the pain in his bilateral knees related to osteoarthritis. David injury, trauma or fall since last office visit. Denies fever, chills generalized feelings of illness or malaise. Last cortisone injection was given on 03/25/2024, and lasted until three weeks ago. Endorses experiencing pain, predominantly located in the popliteal region with the pain in the right knee greater than the left. He rates his right knee pain at an 8 out of 10 with an aching, stabbing, throbbing intermittent nature that is worsened with flexion, weightbearing, sit to stand maneuver and steps. He is utilizing acetaminophen fo r pain control with minimal efficacy. He is ambulating without assistive device. Reason For Referral Reason For Referral No Information Plan Of Treatment Date Type Action Status Referral Ordered: X-ray Exam Hip Unilat With Pelvis When Perf 2-3 View LT hip ordered Referral Ordered: X-ray Exam Dale Hips With Pelvis 3-4 Views Bilateral hip ordered Referral Ordered: X-ray Exam Hip Unilat With Pelvis When Perf 2-3 View RT hip ordered History Of Present Illness Encounter Date Complaint History Of Prese nt Illness bilat knees David presents to the office today for treatment of the pain in his bilateral knees related to osteoarthritis. David injury, trauma or fall since last office visit. Denies fever, chills generalized feelings of illness or malaise. Last cortisone injection was given on 03/25/2024, and lasted until three weeks ago. Endorses experiencing pain, predominantly located in the popliteal region with the pain in the right knee greater than the left. He rates his right knee pain at an 8 out of 10 with an aching, stabbing, throbbing intermittent nature that is worsened with flexion, weightbearing, sit to stand maneuver and steps. He is utilizing acetaminophen for pain control with minimal efficacy. He is ambulating without assistive device. Left hip David presents to [facility] for ongoing evaluation of his left posterior total hip arthroplasty, date of surgery 01/10/2024. Denies injury, trauma or fall since last office visit. Denies fever, chills, generalized feelings of illness or malaise. He has completed physical therapy and does not do the exercises due to severe back and knee pain. He was seen by a pain management doctor in [place] who diagnosed him with arthritis of the knees, but he has had no treatment. He indicates that the pain starts in the low back, is worse in the left lower extremity than the right, and radiates down into his foot. He has severe throbbing pain in the knees with activities such as sitting and driving. He is becoming very frustrated as this is causing him inability to maintain a normal level of functioning. He does have an appointment with his surgeon to discuss possible surgery in his back, but he would like to discuss treatment for the pain in his knees. He is utilizing acetaminophen for pain control as needed. He is ambulating without assistive device. Left hip David presents to [facility] for initial post operative evaluation of his left posterior total hip arthroplasty, date of surgery 01/10/2024. Denies injury, trauma or fall since surgical intervention. Denies fever, chills, generalized feelings of illness or malaise. Indicates compliance with the use of aspirin for DVT prophylaxis, and maintaining posterior hip precautions. He is participating in physical therapy, and feels that it is going well. Endorses pain predominantly located in the lateral thigh and greater trochanteric region, that is mild and intermittent. It is worsened with palpation. Denies use of interventions for pain control. He is ambulating without assistive device at today's office visit. left hip David is a 68 yea r-old male who presents to the office for evaluation of left hip pain. 275 pounds. 10 out of 10 left hip pain. Limping. Grinding locking and popping are noted. Pain with active or passive range of motion history of right hip arthroplasty due to avascular necrosis presents with similar symptoms regarding left hip. He has difficulty walking greater than 2 city blocks he has pain with weightbearing and on shoes and socks and performing other activities of daily living he is difficulty with climbing stairs descending stairs sitting standing and walking. The patient has completed adequate conservative therapy consisting of: Tylenol, anti-inflammatories, physical therapy, activity modification, and injections. Currently conservative treatment is no longer providing adequate symptom management and the patient wishes to progress to total joint arthroplasty. Symptoms have been present for greater than 6 months, pain is rated as an 8 out of 10 and is functionally limiting. The patient is no longer able to perform activities of daily living such as climbing hills and ramps, a sending and descending stairs, walking greater than 1-2 city blocks without significant pain. Right hip David is a [facility] 66-year-old male who presents to the office today for ongoing evaluation of his right total hip arthroplasty, date of surgery 01/05/2022. He is still participating in physical therapy and feels that it is going very well. He is doing exercises on a regular basis on his own. He does endorse dull, intermittent diffuse right hip pain that increases with increases to his overall activity level and exercise program. Pain is managed with the use of acetaminophen as needed. Denies injury, trauma, or fall since last office visit. Denies fever, chills, generalized feelings of illness or malaise. He is ambulating without assistive device at today's office visit. Left hip David presents to the office today for evaluation of his left hip pain. Indicates development of increasing crepitation and a clicking sound with participation in physical therapy for the right hip. He is experiencing constant pain in the left hip predominantly located in the groin, with intermittent radiation down the leg. Pain is rated at a 6 out of 10 with a sharp, aching, stabbing nature pain is worsened with ambulation. Pain is managed with the use of acetaminophen and rest. He is ambulating without assistive device at today's office visit. right hip David is a [facility] 66-year-old male who presents to the office today for initial postop evaluation of his right posterior total hip arthroplasty. Denies injury, trauma, or fall since surgical intervention. Denies fever, chills, generalized feelings of illness or malaise. Endorses compliance with the use of aspirin twice a day for DVT prophylaxis and with maintaining posterior hip precautions. He is participating in physical therapy and feels that it is going very well. He is doing the exercises on a regular basis at home. He endorses mild intermittent pain, rated at a 1 out of 10 with a dull intermittent nature, predominately located along the incision line. He is unable to indicate any initiating her exacerbating past factors. Pain is managed with ice and physical therapy. Denies the use of oral medications for pain control. He is ambulating without assistive device at today's office visit. Right Hip David is a [facility] 66-year-old, 6 with 4 inch tall, 255 pounds, right-hand dominant gentleman who presents to the office today for evaluation of his acute, nontraumatic right hip pain. Patient states development of pain over the last month, with significant increase over the last week and presentation to his chiropractor on 12/27/2021 who took images and referred him to an orthopedic surgeon on 12/28/2021. Patient indicates that the orthopedic surgeon reviewed his images and told him that he needed to be seen by someone who specializes in hip fractures. Denies injury, trauma, or fall as initiating event. He presents to the office today experiencing difficulty falling asleep, giving way of the lower extremity. He rates his pain at a 9 out of 10 with a throbbing sharp intermittent nature that is worsened with active flexion of the hip, ascending and descending stairs, standing, and walking. Indicates sharp pain shooting down his leg at night. States reduction of all pain medications and interventions as he was finding nothing to alleviate his pain. He is ambulating with the use of a cane at today's office visit, and accompanied to the visit by his . Functional Status Date Functional Assessmen t No Information Instructions Date Instruction Additional Infor tyson Continuation of cons ervative treatments, risks and benefits of cortisone, frequency of injection schedule, medication management, topical products and transition to total knee arthroplasty were reviewed. David demonstrates appropriate understanding of the diagnosis and plan of care and wishes to proceed with cortisone injection into the bilateral knees. All questions were answered and concerns addressed. He will follow up with our office as needed. Dictation completed with Virtual Web software, grammatical variances and spelling errors may inadvertently occur. Related to Bilateral primary osteoarthritis of knee Pathophysiology of t he disease process was discussed. Conservative treatment options were discussed including cortisone injections, visco supplementation injections, physical therapy, the use of ice or heat, the use of [id number] nonsteroidal anti-inflammatory type medications and [id number] pain medications, and the use of bracing. Risks and benefits of cortisone injection were discussed. The frequency of injection schedule was discussed. At this time the patient would like to proceed with cortisone injections into the bilateral knees. All questions were answered and concerns addressed. David demonstrates appropriate understanding of the diagnosis and plan of care at this time and we will see them back as neededWritten consent for the procedure was obtained. The patient was seated with the knees bent to 90 degrees of flexion. The bilateral knees were prepped with alcohol and chlorhexidine. The skin of the right knee was anesthetized with Ethyl Chloride spray and a 22 gauge needle was used to introduce 40 mg of Kenalog and 3 mL of 1% Lidocaine plain into the knee joint. The area of injection was then cleaned and a sterile bandage was placed. The skin of the left knee was anesthetized with Ethyl Chloride spray and a 22 gauge needle was used to introduce 40 mg of Kenalog and 3 mL of 1% Lidocaine plain into the knee joint. The area of injection was then cleaned and a sterile bandage was placed. The procedure was completed without complication, and was well tolerated by the patient. Patient was educated on post injection care instructions and discharged in stable condition.Dictation completed with Virtual Web software, grammatical variances and spelling errors may inadvertently occur. Related to Bilateral primary osteoarthritis of knee Recommend initiation of a strengthening regimen and continued exercise program. Continue pain control measures as needed with the use of rest, ice, heat, compression, elevation, over the counter oral and topical analgesics and NSAIDs as needed for pain and inflammation control. Remain compliant with the use of antibiotics prior to all dental visits for the next 2 years, and notify the office of need. All questions were answered and concerns addressed. David demonstrates appropriate understanding of the diagnosis and the plan of care at this time and will follow up with the office in one year for radiologic and physical evaluation. Related to Presence of left artificial hip joint 1) Continue DVT prop hylaxis until 6 weeks postop.2) Maintain posterior hip precautions until 8 weeks post op. 3) Continue physical therapy. 4) Avoid submergence of incision site in standing water until at least 8 weeks postop.5) Continue pain control measures with rest, ice, elevation, over the counter oral analgesics, prescription analgesics and NSAIDs. 6) Continue the use of compression stockings for edema control as needed. 7) Avoid dental care until three months postop unless emergent, utilize an antibiotic prior to all dental visits for 2 years, and notify the office of need.All question were answered and concerns addressed. David demonstrates appropriate understanding of the diagnosis and the plan of care at this time and will follow up in 8 weeks.Dictation completed with Virtual Web software, grammatical variances and spelling errors may inadvertently occur. Related to Presence of left artificial hip joint May-06-2024 We discussed in deta il the specifics of the operation consisting of the pre-operative evaluation, the surgical procedure, and the post operative recovery course. I explained the prosthetic ( ceramic on polyethylene bearing). We discussed the risks and benefits. Specifically, bleeding, possible blood transfusion, DVT, PE, dislocation, infection, persistent pain, mechanical loosening, leg length discrepancy. We also obtained templating radiographs to size the components and measure the pre-operative leg lengths. We discussed the hospital stay vs outpatient total joint procedure and the recovery period. Including, post op PT and DVT prophylaxis. Appropriate medical evaluation will be obtained and the patient will be scheduled for total hip arthroplasty.Posterior approach. [facility]. Dual mobility Related to Idiopathic aseptic necrosis of left femur Assessments Type Assessment Date assessment Pain in left knee assessment Pain in right knee assessment Bilateral primary osteoarthritis of knee Patient Care Teams Name Effective Dates (start - stop) Status Members No Information
--- NOTE | ~2025-06-16 | US_ITS ---
EXAMINATION: US venous doppler [facility], 06/16/2025 16:17 ANALYSIS DIRECTOR HISTORY: R79.89 - Other specified abnormal findings of blood chemi... Comparison: None Technique: Hoskins-scale and color Doppler images were attempted of the lower saphenofemoral junction, common femoral vein,superficial femoral vein, proximal deep femoral vein, proximal deep femoral vein, popliteal vein and posterior tibial veins. Findings: Deep Venous System:Normal flow, augmentation and compressibility. No echogenic thrombus identified. The contralateral saphenofemoral junction appears unremarkable. Superficial Venous SystemNo superficial thrombophlebitis. Soft tissues: Soft tissues are unremarkable. Impression: Negative for DVT. Reviewed, dictated and finalized at location P. YSIS DIRECTOR Impression: Negative for DVT.
--- OUTSIDE RECORDS SUMMARY | 2025-06-16 16:23 | XMS_ITS | Patient Health Record ---
Author Organization [facility] Address [address] [facility] [place] [address] Care Team Providers Care Manager Grant Name Role Phone Gray Fang Unavailable [phone] Reason For Referral No Information Medications Medication [...] W/U Status Risk Notes Problem Lumbosacral radiculopathy (9379490) Radiculopathy, lumbosacral region (M54.17) Active confirmed Problem Degenerative disc disease (54706235) DDD (degenerative disc disease), lumbar (M51.36) Active confirmed Problem Displacement of lumbar intervertebral disc without myelopathy (38464787) Herniated nucleus pulposus, L5-S1 (M51.27) Active confirmed Problem Bilateral arthritis of hip (3728969917424977) Bilateral hip joint arthritis (M16.0) Active confirmed Plan Of Treatment No Information Medications Administered Medication Instructions Date of Administration Dosage Notes Bilateral L5/S1 SESI 07/17/2019
--- OUTSIDE RECORDS SUMMARY | 2025-06-16 16:23 | XMS_ITS ---
Author Organization [facility] 8 [facility] Address [address] [place] [address] Care Team Providers Care Cargoman Name Role Phone Umesh Arzate DO Primary Care Provider [phone] Alfa Blake MD Unavailable [phone] Kip Philip MD Unavailable Active Problems Problem [...] (01/02/2022): Added automatically from request for surgery [id number] BPH with elevated PSA 09/26/2021 Overview (09/26/2021): Added automatically from request for surgery [id number] Retention of urine 05/11/2021 H/O atrial fibrillation [...]
--- OUTSIDE RECORDS SUMMARY | 2025-06-16 16:23 | XMS_ITS | Clinical Summary ---
Author Organization [facility] 8 [facility] Address [address] [place] [address] Care Team Providers Care Stevedore Hold Name Role Phone Umesh Arzate DO Primary Care Provider [phone] Alfa Blake MD Unavailable [phone] Kip Philip MD Unavailable [phone] Allergies Active Allergy Reactions Criticality Noted Date [...] (01/02/2022): Added automatically from request for surgery [id number] BPH with elevated PSA 09/26/2021 Overview (09/26/2021): Added automatically from request for surgery [id number] Retention of urine 05/11/2021 H/O atrial fibrillation [...] Description 05/27/2025 10:20 AM CDT Office Visit [facility] Medicine Urology [address] [place] [address] Alexander Kang MD Benign prostatic hyperplasia with weak urinary stream (Primary Dx); Retention of urine 05/20/2025 Telephone [facility] Medicine Urology [address] [place] [address] Alexander Kang MD from Last [...] on file Legal 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 Gender Identity Male 07/11/2021 8:42 AM 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 Sexual Orientation Straight 07/11/2021 8: 42 AM 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 Last Filed Vital Signs Vital Sign Reading [...] 03/26/2022, 08/31/2021 Medical Devices Implanted Type Area English And Reading Instructor Device Identifier Shelf Expiration Date Model / Serial / Lot Neotract Inc [id number] Urolift Implant Urological - [id number] Implanted:Qty: 4 on 10/11/2021 by Alfa Blake MD at [facility] N/A: Urethra [employer] 08/22/2022 CK928-7 / / [id number] [employer] Inc [id number] Urolift Implant Urological - [id number] Implanted:Qty: 2 on 10/11/2021 by Alfa Blake MD at [facility] N/A: Urethra [employer] 02/20/2023 PT786-4 / / [id number] [employer] Mdm 48mm Hip G Liner Acetabular Cocr 28mm Femoral Head [id number] - [id number] Implanted:Qty: 1 on 01/05/2022 by Kip Philip MD at [facility] Right: Hip [employer] [id number] 04/19/2026 [id number] / / [id number] [employer] 6255-1802 Screw Bone Trident Ii L20mm Od6.5mm Low Profile Hexagonal Sterile - [id number] Implanted:Qty: 1 on 01/05/2022 by Kip Philip MD at [facility] Right: Hip [employer] [id number] 11/01/2026 5442-0426 / / [id number] [employer] 3099-1748 Screw Bone Trident Ii L40mm Od6.5mm Low Profile Hexagonal Sterile - [id number] Implanted:Qty: 1 on 01/05/2022 by Kip Philip MD at [facility] Right: Hip [employer] [id number] 08/29/2026 6071-0456 / / [id number] [employer] 702-04-60g Shell Acetabular Trident Ii Tritanium G Od60mm Hip 5 Screw Hole Cluster Sterile - [id number] Implanted:Qty: 1 on 01/05/2022 by Kip Philip MD at [facility] Right: Hip [employer] [id number] 07/24/2026 702-04-60G / / [id number] [employer] V40 28mm Hip +4mm Offset Taper Head Femoral Biolox Delta 6570-0-228 - [id number] Implanted:Qty: 1 on 01/05/2022 by Kip Philip MD at [facility] Right: Hip [employer] [id number] 06/22/2026 6570-0-228 / / [id number] [employer] 7236-2-854 Insert Presybeterian Adm X3 - [id number] Implanted:Qty: 1 on 01/05/2022 by Kip Philip MD at [facility] Right: Hip [employer] [id number] 02/13/2026 7236-2-854 / / [id number] [employer] Accolade 111mm 35mm Modular Hip 132d 6 Taper Stem Femoral Sterile 64346298 - [id number] Implanted:Qty: 1 on 01/05/2022 by Kip Philip MD at [facility] Right: Hip [employer] [id number] 11/20/2025 [id number] / / [id number] [employer] Screw Bone Trident Ii L35mm Od6.5mm Low Profile Hexagonal Sterile 0837-5991 - [id number] Implanted:Qty: 1 on 01/10/2024 by Kip Philip MD at [facility] Left: Hip [employer] [id number] 08/29/2028 7391-7785 / / [id number] [employer] Accolade Ii V40 117mm 37mm Hip 132d 8 47mm Offset Stem Femoral 3727-5902 - [id number] Implanted:Qty: 1 on 01/10/2024 by Kip Philip MD at [facility] Left: Hip [employer] [id number] 11/16/2025 6785-5667 / / [id number] [employer] Insert Presybeterian Adm X3 54 7236-2-854 - [id number] Implanted:Qty: 1 on 01/10/2024 by Kip Philip MD at [facility] Left: Hip [employer] [id number] 10/31/2026 7236-2-854 / / [id number] [employer] Shell Acetabular Trident Ii Tritanium G Od60mm Hip 5 Screw Hole Cluster Sterile 702-04-60g - [id number] Implanted:Qty: 1 on 01/10/2024 by Kip Philip MD at [facility] Left: Hip [employer] [id number] 10/02/2028 702-04-60G / / [id number] [employer] V40 28mm Hip +4mm Offset Taper Head Femoral Biolox Delta 6570-0-228 - [id number] Implanted:Qty: 1 on 01/10/2024 by Kip Philip MD at [facility] Left: Hip [employer] [id number] 09/14/2028 6570-0-228 / / [id number] [employer] Mdm 48mm Hip G Liner Acetabular Cocr 28mm Femoral Head [id number] - [id number] Implanted:Qty: 1 on 01/10/2024 by Kip Philip MD at [facility] Left: Hip [employer] [id number] 04/02/2027 [id number] / / [id number] Procedures Procedure Name Priority Date/Time Associated Diagnosis [...] BLOOD ORDERABLES Final Result Performing Organization Address City/State/[facility] [place] Phone Number [facility] [address] [facility]. [place] [address] * CT Chest Abdomen Pelvis W Contrast [...] it. Electronically signed by: Mohamud Perez M.D. Miek Alexy Parker DO IMG CT PROCEDURES Final Result from Last 3 Months or Most Recently Relevant to Health Maintenance Insurance [facility] MEDICARE [facility] MEDICARE T MEDICARE Advance Directives For more information, please contact: [phone] * Full Code (Latest Code Status on File) Date Activated Date Inactivated Comments 02/10/2025 4:14 PM 02/11/2025 5:09 PM * Full Code Date Activated Date Inactivated Comments 01/10/2024 3:16 PM 01/11/2024 7:33 PM * Full Code Date Activated Date Inactivated Comments 01/05/2022 6:53 PM 01/06/2022 5:44 PM * Full Code Date Activated Date Inactivated Comments 02/15/2021 2:16 PM 02/17/2021 7:25 PM Care Teams Stevedore Hold Relationship Specialty Start Date End Date Umesh Arzate DO PCP - General Internal Medicine 09/09/18 Alfa Blake MD Consulting Physician Urology 10/11/21 Kip Philip MD [address] [place] [address] Consulting Physician Orthopedic Surgery 01/05/22
--- OUTSIDE RECORDS SUMMARY | 2025-06-16 16:23 | XMS_ITS | Clinical Summary ---
Author Organization [facility] Address [address] [place] [address] Phone Care Team Providers Care Excel Analyst Name Role Phone Umesh Arzate DO Primary Care Provider Social History Tobacco Use [...] 2005 ZOSTER VACCINE (1 of 2) 2005 Preventative Visit- Commercial 08/05/2024 INFLUENZA VACCINE (#1) 2025 Insurance [employer] OPEN ACCESS Care Teams Excel Analyst Relationship Specialty Start Date End Date Umesh Arzate DO [address] [facility] [address] [place] [address] PCP - General Internal Medicine 05/07/19
== END 2025-06-16 16:04 | disposition home or self-care (01) ==
PROVIDERS: PCP Internal Medicine; Visit Provider Clinical Nurse Specialist
DX: R79.89 Other specified abnormal findings of blood chemistry (principal); I26.99 Other pulmonary embolism without acute cor pulmonale
CPT/HCPCS: 93970